=== PATIENT | male | born 1985 | race Caucasian/White ===

== ENCOUNTER → 2017-01-21 | Outpatient (CLI) | payer MEDICAID ==
[2017-01-21 12:08] LABS: CHLORIDE,CL 105 mmol/L (98-110); SODIUM,NA 139 mmol/L (136-146)
--- NOTE | 2017-01-21 15:00 | CT ---
CT of the abdomen and pelvis without contrast. HISTORY: Flank Pain TECHNIQUE: Axial CT images were obtained of the abdomen and pelvis without contrast. Coronal and sag ittal reconstructions obtained. FINDINGS: The lung bases are clear, no pleural effusion. The liver, spleen, adrenal glands, and pancreas appear unremarkable for noncontrast examination. The gallbladder appears normal. There is no bulky retroperitoneal lymphadenopathy. No abdominal ascite s. There is a punctate nonobstructing stone within the upper pole of the left kidney. The large and small bowel are normal in caliber without evidence of obstruction. The appendix appear s normal. There is no bulky pelvic lymphadenopathy. No free fluid. No free air. The urinary bladder appears normal. The visualized osseous structures appear normal. IMPRESSION: 1. No acute findings within the abdomen or pelvis. 2. Punctate nonobstructing left renal stone.
== END ==
LOC: MW.DI 11:05
PROVIDERS: ATTEND Nurse Practitioner Family
DX: R10.9 Unspecified abdominal pain (principal); N20.9 Urinary calculus, unspecified
CPT/HCPCS: 36415; 74176; 74176-26; 80053; 81001; 85025

== ENCOUNTER 2017-08-30 13:15 | Emergency (ER) | payer MEDICAID ==
[2017-08-30 13:25] VITALS: BP 141/87
--- NOTE | 2017-08-30 13:40 | EDM.PDOC ---
ED HPI GENERAL MEDICAL PROBLEM - General Chief Complaint: Bite:Animal, Insect Stated Complaint: DOG BITE Time Seen by Provider: 08/30/17 13:25 Source of Information: Reports: Patient History Limitations: Reports: No Limitations - History of Present Illness INITIAL COMMENTS - FREE TEXT/NARRATIVE: History of present illness: [32-year-old male comes in status post puncture wound to 2 right hand from his appendectomy. Patient had been playing roughly with the dog teasing her and she nipped at him causing a small puncture on the right index finger and the outer media aspect of the palm] Review of systems: As per history of present illness and below otherwise all systems reviewed and negative. Past medical history: As per history of present illness and as reviewed below otherwise noncontributory. Surgical history: As per history of present illness and as reviewed below otherwise noncontributory. Social history: No reported history of drug or alcohol abuse. Family history: As per history of present illness and as reviewed below otherwise noncontributory. Physical exam: HEENT: Atraumatic, normocephalic, pupils reactive, negative for conjunctival pallor or scleral icterus, mucous membranes moist, throat clear, neck supple, nontender, trachea midline. Lungs: Clear to auscultation, breath sounds equal bilaterally, chest nontender. Heart: S1S2, regular, negative for clicks, rubs, or JVD. Abdomen: Soft, nondistended, nontender. Negative for masses or hepatosplenomegaly. Negative for costovertebral tenderness. Pelvis: Stable nontender. Genitourinary: Deferred. Rectal: Deferred. Extremities: Atraumatic, negative for cords or calf pain. Neurovascular unremarkable. Neuro: Awake, alert, oriented. Cranial nerves II through XII unremarkable. Cerebellum unremarkable. Motor and sensory unremarkable throughout. Exam nonfocal. Skin: Mild puncture wound that had already sealed with fibrin clot. Discussed with patient about dogs immunizations he indicated dog was slightly behind and due to age had not had her rabies shot yet. Diagnostics: [] Therapeutics: [] Impression: [Dog bite] Plan: [Augmentin] Definitive disposition and diagnosis as appropriate pending reevaluation and review of above. Right Hand Pain Score (Numeric/FACES): 5 - Related Data Allergies Allergy/AdvReac Type Severity Reaction Status Date / Time Sulfa (Sulfonamide Allergy Rash Verified 08/30/17 13:25 Antibiotics) Home Meds: Home Meds . [No Known Home Meds] 06/05/14 [History] Past Medical History - Past Health History Medical/Surgical History: Denies Medical/Surgical History - Infectious Disease History Infectious Disease History: Reports: Chicken Pox - Past Surgical History HEENT Surgical History: Reports: Tonsillectomy Social & Family History - Family History Family Medical History: Noncontributory - Tobacco Use Smoking Status *Q: Current Every Day Smoker Years of Tobacco use: 10 Packs/Tins Daily: 1 Second Hand Smoke Exposure: No - Caffeine Use Caffeine Use: Reports: Coffee, Energy Drinks - Alcohol Use Days Per Week of Alcohol Use: 1 Number of Drinks Per Day: 3 Total Drinks Per Week: 3 - Recreational Drug Use Recreational Drug Use: No - Living Situation & Occupation Occupation: Employed ED ROS GENERAL - Review of Systems Review Of Systems: See Below (See history of present illness) ED EXAM, ANIMAL BITE - Physical Exam Exam: See Below (See history of present illness) Course - Vital Signs Last Recorded V/S: Last Vital Signs Temp 36.7 C 08/30/17 13:22 Pulse 73 08/30/17 13:22 Resp 18 08/30/17 13:22 BP 141/87 H 08/30/17 13:22 Pulse Ox 99 08/30/17 13:22 Departure - Departure Time of Disposition: 13:39 Disposition: Home, Self-Care 01 Condition: Good Clinical Impression: Dog bite - Discharge Information Instructions: Animal Bite, [id number] Referrals: PCP,None [Primary Care Provider] - Additional Instructions: The following information is given to patients seen in the emergency department who are being discharged to home. This information is to outline your options for follow-up care. We provide all patients seen in our emergency department with a follow-up referral. The need for follow-up, as well as the timing and circumstances, are variable depending upon the specifics of your emergency department visit. If you don't have a primary care physician on staff, we will provide you with a referral. We always advise you to contact your personal physician following an emergency department visit to inform them of the circumstance of the visit and for follow-up with them and/or the need for any referrals to a consulting specialist. The emergency department will also refer you to a specialist when appropriate. This referral assures that you have the opportunity for follow-up care with a specialist. All of these measure are taken in an effort to provide you with optimal care, which includes your follow-up. Under all circumstances we always encourage you to contact your private physician who remains a resource for coordinating your care. When calling for follow-up care, please make the office aware that this follow-up is from your recent emergency room visit. If for any reason you are refused follow-up, please contact the [facility] Emergency Department at and asked to speak to the emergency department charge nurse. Take medication as directed Follow-up with PCP in 3-5 days Return to ED as needed as discussed
== END 2017-08-30 13:50 | disposition home or self-care (01) ==
LOC: MW.ED 13:15
DX: S61.230A Puncture wound without foreign body of right index finger without damage to nail, initial encounter (principal); F17.210 Nicotine dependence, cigarettes, uncomplicated; Z88.2 Allergy status to sulfonamides; W54.0XXA Bitten by dog, initial encounter
CPT/HCPCS: 99282; 99283

== ENCOUNTER 2017-12-13 13:58 | Observation (INO) | payer MEDICAID ==
[2017-12-13] MEDS ORDERED: Sodium Chloride 0.9% 10 ML Syringe FLUSH PRN (14:00)
[2017-12-13] MEDS ORDERED: Sodium Chloride 0.9% 2.5 ML Syringe FLUSH PRN (14:00)
[2017-12-13] MEDS ORDERED: LORazepam 1 MG Tab PO ONE (14:03)
[2017-12-13] MEDS ORDERED: Aspirin 81 MG Tab.Chew PO ONE (14:03)
[2017-12-13] MEDS: Nitroglycerin 0.4 MG Tab.SL SL PRN ×3 (14:11→17:05)
[2017-12-13 14:37] LABS: CHLORIDE,CL 109 mmol/L (98-110); SODIUM,NA 139 mmol/L (136-146)
--- NOTE | 2017-12-13 14:39 | EDM.PDOC ---
ED HPI GENERAL MEDICAL PROBLEM - General Chief Complaint: Chest Pain Stated Complaint: CHEST PAIN Time Seen by Provider: 12/13/17 14:20 Source of Information: Reports: Patient History Limitations: Reports: No Limitations - History of Present Illness INITIAL COMMENTS - FREE TEXT/NARRATIVE: History of present illness: []Patient persisted and when he started having stabbing left-sided chest pain radiating to his left arm. Feels short of breath but denies any dizziness lightheadedness sweating or syncope. Patient does not have heart disease but states his dad of a heart attack in his mid 40s. Review of systems: As per history of present illness and below otherwise all systems reviewed and negative. Past medical history: As per history of present illness and as reviewed below otherwise noncontributory. Surgical history: As per history of present illness and as reviewed below otherwise noncontributory. Social history: No reported history of drug or alcohol abuse. Family history: As per history of present illness and as reviewed below otherwise noncontributory. Physical exam: General: Well developed, well nourished in NAD HEENT: Atraumatic, normocephalic, pupils reactive, negative for conjunctival pallor or scleral icterus, mucous membranes moist, throat clear, neck supple, nontender, trachea midline. Lungs: Clear to auscultation, breath sounds equal bilaterally, chest nontender. Heart: S1S2, regular, negative for clicks, rubs, or JVD. Abdomen: Soft, nondistended, nontender. Negative for masses or hepatosplenomegaly. Negative for costovertebral tenderness. Pelvis: Stable nontender. Genitourinary: Deferred. Rectal: Deferred. Extremities: Atraumatic, negative for cords or calf pain. Neurovascular unremarkable. Neuro: Awake, alert, oriented. Cranial nerves II through XII unremarkable. Cerebellum unremarkable. Motor and sensory unremarkable throughout. Exam nonfocal. Diagnostics: []EKG, labs, x-rays negative Therapeutics: []Aspirin nitroglycerin Ativan given with improvement has pain, Impression: []Chest pain, unable to rule out [place] given onset of pain 20 minutes prior to arrival Plan: []Admit to telemetry obs to rule out [place] Definitive disposition and diagnosis as appropriate pending reevaluation and review of above. chest pain Pain Score (Numeric/FACES): 5 - Related Data Allergies Allergy/AdvReac Type Severity Reaction Status Date / Time Sulfa (Sulfonamide Allergy Rash Verified 12/13/17 13:59 Antibiotics) Home Meds: Home Meds . [No Known Home Meds] 12/13/17 [History] Past Medical History - Past Health History Medical/Surgical History: Denies Medical/Surgical History HEENT History: Reports: None Cardiovascular History: Reports: None Respiratory History: Reports: None Gastrointestinal History: Reports: None Genitourinary History: Reports: None Musculoskeletal History: Reports: None Neurological History: Reports: None Psychiatric History: Reports: None Endocrine/Metabolic History: Reports: None Hematologic History: Reports: None Immunologic History: Reports: None Oncologic (Cancer) History: Reports: None Dermatologic History: Reports: None - Infectious Disease History Infectious Disease History: Reports: Chicken Pox - Past Surgical History Head Surgeries/Procedures: Reports: None HEENT Surgical History: Reports: Tonsillectomy Cardiovascular Surgical History: Reports: None Respiratory Surgical History: Reports: None GI Surgical History: Reports: None Male Surgical History: Reports: None Endocrine Surgical History: Reports: None Neurological Surgical History: Reports: None Musculoskeletal Surgical History: Reports: None Oncologic Surgical History: Reports: None Dermatological Surgical History: Reports: None Social & Family History - Family History Family Medical History: Noncontributory Cardiac: Reports: [place] - Tobacco Use Smoking Status *Q: Never Smoker Years of Tobacco use: 10 Packs/Tins Daily: 1 Second Hand Smoke Exposure: No - Caffeine Use Caffeine Use: Reports: Coffee - Alcohol Use Days Per Week of Alcohol Use: 1 Number of Drinks Per Day: 3 Total Drinks Per Week: 3 - Recreational Drug Use Recreational Drug Use: No - Living Situation & Occupation Occupation: Employed ED ROS GENERAL - Review of Systems Review Of Systems: See Below (See history of present illness) ED EXAM, GENERAL - Physical Exam Exam: See Below (See history of present illness) Course - Vital Signs Last Recorded V/S: Last Vital Signs Temp 98.5 F 12/13/17 14:58 Pulse 96 12/13/17 13:59 Resp 20 12/13/17 14:58 BP 105/70 12/13/17 14:58 Pulse Ox 99 12/13/17 14:58 - Orders/Labs/Meds Orders: Active Orders 24 hr Category Date Time Status EKG Documentation Completion [RC] STAT Care 12/13/17 14:00 Active Chest 1V Frontal [CR] Stat Exams 12/13/17 14:01 Taken Nitroglycerin [Nitrostat] Med 12/13/17 14:03 Active 0.4 mg SL Q5M PRN Sodium Chloride 0.9% [Saline Flush] Med 12/13/17 14:00 Active 10 ml FLUSH ASDIRECTED PRN Sodium Chloride 0.9% [Saline Flush] Med 12/13/17 14:00 Active 2.5 ml FLUSH ASDIRECTED PRN Saline Lock Insert [OM.PC] Stat Oth 12/13/17 14:00 Ordered Medication Orders Nitroglycerin (Nitrostat) 0.4 mg SL Q5M PRN PRN Reason: Chest Pain Last Admin: 12/13/17 14:11 Dose: 0.4 mg Sodium Chloride (Saline Flush) 10 ml FLUSH ASDIRECTED PRN PRN Reason: Keep Vein Open Last Admin: 12/13/17 14:13 Dose: 10 ml Sodium Chloride (Saline Flush) 2.5 ml FLUSH ASDIRECTED PRN PRN Reason: Keep Vein Open Last Admin: 12/13/17 14:14 Dose: 2.5 ml Labs: Laboratory Tests 12/13/17 12/13/17 Range/Units 14:07 14:07 WBC 6.39 (4.0-11.0) K/uL RBC 4.91 (4.50-5.90) M/uL Hgb 15.0 (13.0-17.0) g/dL Hct 43.1 (38.0-50.0) % MCV 87.8 (80.0-98.0) fL MCH 30.5 (27.0-32.0) pg MCHC 34.8 (31.0-37.0) g/dL RDW Std Deviation 40.1 (28.0-62.0) fl RDW Coeff of Angela 12 (11.0-15.0) % Plt Count 284 (150-400) K/uL MPV 10.20 (7.40-12.00) fL Neut % (Auto) 69.9 (48.0-80.0) % Lymph % (Auto) 17.7 (16.0-40.0) % [place] % (Auto) 11.0 (0.0-15.0) % Eos % (Auto) 0.9 (0.0-7.0) % Baso % (Auto) 0.5 (0.0-1.5) % Neut # (Auto) 4.5 (1.4-5.7) K/uL Lymph # (Auto) 1.1 (0.6-2.4) K/uL [place] # (Auto) 0.7 (0.0-0.8) K/uL Eos # (Auto) 0.1 (0.0-0.7) K/uL Baso # (Auto) 0.0 (0.0-0.1) K/uL Nucleated RBC % 0.0 /100WBC Nucleated RBCs # 0 K/uL Sodium 139 (136-146) mmol/L Potassium 4.1 (3.5-5.1) mmol/L Chloride 109 (98-110) mmol/L Carbon Dioxide 21 (21-31) mmol/L BUN 14 (6.0-23.0) mg/dL Creatinine 1.1 (0.6-1.5) mg/dL Est Cr Clr Drug Dosing 101.73 mL/min Estimated GFR (MDRD) > 60.0 ml/min Glucose 103 (60-110) mg/dL Calcium 9.3 (8.8-10.8) mg/dL Total Bilirubin 0.9 (0.1-1.5) mg/dL AST 17 (5-40) IU/L ALT 14 (8-54) IU/L Alkaline Phosphatase 61 (40-150) Troponin I < 0.10 (0.0-0.29) NG/ML Total Protein 7.3 (6.0-8.0) g/dL Albumin 4.6 (3.5-5.0) g/dL Globulin 2.7 (2.0-3.5) g/dL Albumin/Globulin Ratio 1.7 (1.3-2.8) Meds: Medications Generic Name Dose Route Start Last Admin Trade Name Freq PRN Reason Stop Dose Admin Nitroglycerin 0.4 mg 12/13/17 14:03 12/13/17 14:11 Nitrostat SL 0.4 mg Q5M PRN Administration Chest Pain Sodium Chloride 10 ml 12/13/17 14:00 12/13/17 14:13 Saline Flush FLUSH 10 ml ASDIRECTED PRN Administration Keep Vein Open Sodium Chloride 2.5 ml 12/13/17 14:00 12/13/17 14:14 Saline Flush FLUSH 2.5 ml ASDIRECTED PRN Administration Keep Vein Open Discontinued Medications Generic Name Dose Route Start Last Admin Trade Name Nateq PRN Reason Stop Dose Admin Aspirin 324 mg 12/13/17 14:03 12/13/17 14:08 Aspirin PO 12/13/17 14:04 324 mg ONETIME ONE Administration Lorazepam 1 mg 12/13/17 14:03 12/13/17 14:09 Ativan PO 12/13/17 14:04 1 mg ONETIME ONE Administration Departure - Departure Time of Disposition: 15:04 Disposition: Admitted As Inpatient 65 Condition: Good Clinical Impression: Chest pain Qualifiers: Chest pain type: unspecified Qualified Code(s): R07.9 - Chest pain, unspecified - My Orders Last 24 Hours: My Active Orders 12/13/17 14:00 EKG Documentation Completion [RC] STAT Sodium Chloride 0.9% [Saline Flush] 10 ml FLUSH ASDIRECTED PRN Sodium Chloride 0.9% [Saline Flush] 2.5 ml FLUSH ASDIRECTED PRN Saline Lock Insert [OM.PC] Stat 12/13/17 14:01 Chest 1V Frontal [CR] Stat 12/13/17 14:03 Nitroglycerin [Nitrostat] 0.4 mg SL Q5M PRN - Assessment/Plan Last 24 Hours: My Active Orders 12/13/17 14:00 EKG Documentation Completion [RC] STAT Sodium Chloride 0.9% [Saline Flush] 10 ml FLUSH ASDIRECTED PRN Sodium Chloride 0.9% [Saline Flush] 2.5 ml FLUSH ASDIRECTED PRN Saline Lock Insert [OM.PC] Stat 12/13/17 14:01 Chest 1V Frontal [CR] Stat 12/13/17 14:03 Nitroglycerin [Nitrostat] 0.4 mg SL Q5M PRN
--- NOTE | 2017-12-13 15:10 | PCM.HP ---
H&P History of Present Illness - General Date of Service: 12/13/17 Admit Problem/Dx: Admission Diagnosis/Problem Admission Diagnosis/Problem Chest pain Source of Information: Patient History Limitations: Reports: No Limitations - History of Present Illness Initial Comments - Free Text/Narative: 32-year-old male presenting to the emergency department with chief complaint of stabbing left-sided chest pain with radiation into the left arm 30 minutes with no significant past medical history. Patient states that today while he was sitting still he began to have left- sided chest pain with some left sided numbness. States that the pain lasted for 30 minutes approximately and was sharp. He did feel somewhat clammy and dizzy but denies any syncope. He also denies any associated shortness of breath, palpitations, or nausea. He takes no medications and has never had similar episodes before. He does get heartburn occasionally but this pain was significantly different. He does have a family history of [place] with his dad passing away at 48 from a heart attack. States that the pain did go away in the emergency department when they give him sublingual nitroglycerin. Patient does admit to having some significant stress at his work and family. 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 In the emergency department CBC, CMP, chest x-ray were unremarkable. Initial troponin was negative at 1407. EKG showed no acute ischemic changes. Patient admitted for observation for atypical chest pain. chest pain Pain Score (Numeric/FACES): 5 - Related Data Allergies/Adverse Reactions: Allergies Allergy/AdvReac Type Severity Reaction Status Date / Time Sulfa (Sulfonamide Allergy Rash Verified 12/13/17 13:59 Antibiotics) Home Medications: Home Meds . [No Known Home Meds] 12/13/17 [History] Past Medical History - Past Health History Medical/Surgical History: Denies Medical/Surgical History HEENT History: Reports: None Cardiovascular History: Reports: None Respiratory History: Reports: None Gastrointestinal History: Reports: None Genitourinary History: Reports: None Musculoskeletal History: Reports: None Neurological History: Reports: None Psychiatric History: Reports: None Endocrine/Metabolic History: Reports: None Hematologic History: Reports: None Immunologic History: Reports: None Oncologic (Cancer) History: Reports: None Dermatologic History: Reports: None - Infectious Disease History Infectious Disease History: Reports: Chicken Pox - Past Surgical History Head Surgeries/Procedures: Reports: None HEENT Surgical History: Reports: Tonsillectomy Cardiovascular Surgical History: Reports: None Respiratory Surgical History: Reports: None GI Surgical History: Reports: None Male Surgical History: Reports: None Endocrine Surgical History: Reports: None Neurological Surgical History: Reports: None Musculoskeletal Surgical History: Reports: None Oncologic Surgical History: Reports: None Dermatological Surgical History: Reports: None Social & Family History - Family History Family Medical History: Noncontributory Cardiac: Reports: [place] - Tobacco Use Smoking Status *Q: Never Smoker Years of Tobacco use: 10 Packs/Tins Daily: 1 Second Hand Smoke Exposure: No - Caffeine Use Caffeine Use: Reports: Coffee - Alcohol Use Days Per Week of Alcohol Use: 1 Number of Drinks Per Day: 3 Total Drinks Per Week: 3 - Recreational Drug Use Recreational Drug Use: No - Living Situation & Occupation Occupation: Employed H&P Review of Systems - Review of Systems: Review Of Systems: See Below General: Denies: Fever, Chills, Malaise, Weakness HEENT: Denies: Headaches Pulmonary: Denies: Shortness of Breath, Wheezing, Cough, Sputum Cardiovascular: Denies: Chest Pain, Palpitations Gastrointestinal: Denies: Abdominal Pain, Diarrhea, Nausea, Vomiting Genitourinary: Denies: Dysuria, Hematuria Musculoskeletal: Denies: Neck Pain, Leg Pain Skin: Denies: Cyanosis Psychiatric: Denies: Confusion, Depression Neurological: Denies: Confusion, Dizziness, Headache Hematologic/Lymphatic: Denies: Anemia Immunologic: Denies: Anaphylaxis Exam - Exam Exam: See Below - Vital Signs Vital Signs: Last Vital Signs Temp 98.5 F 12/13/17 14:58 Pulse 96 12/13/17 13:59 Resp 20 12/13/17 14:58 BP 105/70 12/13/17 14:58 Pulse Ox 99 12/13/17 14:58 Weight: 90.718 kg - Exam Quality Assessment: DVT Prophylaxis General: Alert, Oriented, Cooperative HEENT: Conjunctiva Clear, EACs Clear, EOMI, Hearing Intact, Mucosa Moist & [place] , Posterior Pharynx Clear, PERRLA Neck: Supple, Trachea Midline, 2 Lungs: Clear to Auscultation, Normal Respiratory Effort Cardiovascular: Regular Rate, Regular Rhythm, Normal S1, Normal S2 GI/Abdominal Exam: Normal Bowel Sounds, Soft, Non-Tender, No Organomegaly, No Distention Back Exam: Normal Inspection, Full Range of Motion, NT Extremities: Normal Inspection, Non-Tender, No Pedal Edema, Normal Capillary Refill Peripheral Pulses: 2+: Radial (L), Radial (R), Posterior Tibial (L), Posterior Tibial (R), Dorsalis Pedis (L), Dorsalis Pedis (R) Skin: Warm, Dry, Intact Neurological: Cranial Nerves Intact, Reflexes Equal Bilateral Neuro Extensive - Mental Status: Alert, Oriented x3, Normal Mood/Affect, Normal Cognition Neuro Extensive - Motor, Sensory, Reflexes: CN II-XII Intact, Normal Gait, Normal Reflexes Psychiatric: Alert, Normal Affect, Normal Mood - Patient Data Lab Results Last 24 hrs: Laboratory Results - last 24 hr 12/13/17 12/13/17 Range/Units 14:07 14:07 WBC 6.39 (4.0-11.0) K/uL RBC 4.91 (4.50-5.90) M/uL Hgb 15.0 (13.0-17.0) g/dL Hct 43.1 (38.0-50.0) % MCV 87.8 (80.0-98.0) fL MCH 30.5 (27.0-32.0) pg MCHC 34.8 (31.0-37.0) g/dL RDW Std Deviation 40.1 (28.0-62.0) fl RDW Coeff of Angela 12 (11.0-15.0) % Plt Count 284 (150-400) K/uL MPV 10.20 (7.40-12.00) fL Neut % (Auto) 69.9 (48.0-80.0) % Lymph % (Auto) 17.7 (16.0-40.0) % [place] % (Auto) 11.0 (0.0-15.0) % Eos % (Auto) 0.9 (0.0-7.0) % Baso % (Auto) 0.5 (0.0-1.5) % Neut # (Auto) 4.5 (1.4-5.7) K/uL Lymph # (Auto) 1.1 (0.6-2.4) K/uL [place] # (Auto) 0.7 (0.0-0.8) K/uL Eos # (Auto) 0.1 (0.0-0.7) K/uL Baso # (Auto) 0.0 (0.0-0.1) K/uL Nucleated RBC % 0.0 /100WBC Nucleated RBCs # 0 K/uL Sodium 139 (136-146) mmol/L Potassium 4.1 (3.5-5.1) mmol/L Chloride 109 (98-110) mmol/L Carbon Dioxide 21 (21-31) mmol/L BUN 14 (6.0-23.0) mg/dL Creatinine 1.1 (0.6-1.5) mg/dL Est Cr Clr Drug Dosing 101.73 mL/min Estimated GFR (MDRD) > 60.0 ml/min Glucose 103 (60-110) mg/dL Calcium 9.3 (8.8-10.8) mg/dL Total Bilirubin 0.9 (0.1-1.5) mg/dL AST 17 (5-40) IU/L ALT 14 (8-54) IU/L Alkaline Phosphatase 61 (40-150) Troponin I < 0.10 (0.0-0.29) NG/ML Total Protein 7.3 (6.0-8.0) g/dL Albumin 4.6 (3.5-5.0) g/dL Globulin 2.7 (2.0-3.5) g/dL Albumin/Globulin Ratio 1.7 (1.3-2.8) Result Diagrams: 12/13/17 14:07 12/13/17 14:07 *Q Meaningful Use (ADM) - VTE *Q VTE Criteria *Q: - Stroke *Q Stroke Criteria *Q: - AMI *Q AMI Criteria *Q: - Problem List (1) Atypical chest pain SNOMED Code(s): 142809036 ICD Code: R07.89 - OTHER CHEST PAIN Status: Acute Priority: High Current Visit: Yes Problem List Initiated/Reviewed/Updated: Yes Orders Last 24hrs: Active Orders 24 hr Category Date Time Status Patient Status [ADT] Stat ADT 12/13/17 15:08 Active EKG Documentation Completion [RC] STAT Care 12/13/17 14:00 Active Chest 1V Frontal [CR] Stat Exams 12/13/17 14:01 Taken Nitroglycerin [Nitrostat] Med 12/13/17 14:03 Active 0.4 mg SL Q5M PRN Sodium Chloride 0.9% [Saline Flush] Med 12/13/17 14:00 Active 10 ml FLUSH ASDIRECTED PRN Sodium Chloride 0.9% [Saline Flush] Med 12/13/17 14:00 Active 2.5 ml FLUSH ASDIRECTED PRN Saline Lock Insert [OM.PC] Stat Oth 12/13/17 14:00 Ordered Medication Orders Nitroglycerin (Nitrostat) 0.4 mg SL Q5M PRN PRN Reason: Chest Pain Last Admin: 12/13/17 14:11 Dose: 0.4 mg Sodium Chloride (Saline Flush) 10 ml FLUSH ASDIRECTED PRN PRN Reason: Keep Vein Open Last Admin: 12/13/17 14:13 Dose: 10 ml Sodium Chloride (Saline Flush) 2.5 ml FLUSH ASDIRECTED PRN PRN Reason: Keep Vein Open Last Admin: 12/13/17 14:14 Dose: 2.5 ml Assessment/Plan Comment:: 32-year-old male admitted 12/13/17 for atypical chest pain with no significant past medical history. Atypical chest pain: We'll trend troponins, place on telemetry, and get a lipid panel for tomorrow morning. This is most likely anxiety related but he does have a family history of a father dying from a [place] at age 48. VTE: SCD, Lovenox Dispo: 1-2 days pending.
[2017-12-13] MEDS ORDERED: Acetaminophen 325 MG Tab PO PRN (15:57)
[2017-12-13] MEDS ORDERED: Ondansetron 4 MG Tab.DIS PO PRN (15:57)
[2017-12-13] MEDS ORDERED: Temazepam 15 MG Cap PO PRN (15:57)
[2017-12-13] MEDS ORDERED: Enoxaparin 40 MG/0.4 ML Syringe SUBCUT SCH (16:00)
[2017-12-13] MEDS ORDERED: LORazepam 2 MG/ML SDV IVPUSH ONE (17:28)
--- NOTE | 2017-12-13 17:35 | PCM.SN ---
- Free Text/Narrative Note: Informed that patient having now right upper chest pain. Nitro given with no resolution. Will give ativan 1 mg. EKG ordered.
[2017-12-13] MEDS: Morphine 2 MG/ML Syringe IVPUSH PRN ×2 (19:16→21:29)
[2017-12-13] MEDS ORDERED: LORazepam 2 MG/ML SDV IVPUSH PRN (20:07)
[2017-12-14 06:04] LABS: CHLORIDE,CL 110 mmol/L (98-110); SODIUM,NA 140 mmol/L (136-146)
--- NOTE | 2017-12-14 08:14 | PCM.PN ---
- General Info Date of Service: 12/14/17 - Patient Data Vitals - Most Recent: Last Vital Signs Temp 98.8 F 12/14/17 04:01 Pulse 76 12/14/17 04:01 Resp 16 12/14/17 04:01 BP 110/51 L 12/14/17 04:01 Pulse Ox 98 12/14/17 04:01 Weight - Most Recent: 90.718 kg I&O - Last 24 Hours: Intake & Output 12/13/17 12/14/17 12/14/17 22:59 06:59 14:59 Intake Total 1750 Output Total 1450 Balance 300 Lab Results Last 24 Hours: Laboratory Results - last 24 hr 12/13/17 12/14/17 12/14/17 Range/Units 19:53 01:55 05:10 WBC 4.97 (4.0-11.0) K/uL RBC 4.72 (4.50-5.90) M/uL Hgb 14.3 (13.0-17.0) g/dL Hct 41.3 (38.0-50.0) % MCV 87.5 (80.0-98.0) fL MCH 30.3 (27.0-32.0) pg MCHC 34.6 (31.0-37.0) g/dL RDW Std Deviation 39.9 (28.0-62.0) fl RDW Coeff of Angela 12 (11.0-15.0) % Plt Count 249 (150-400) K/uL MPV 10.10 (7.40-12.00) fL Neut % (Auto) 54.5 (48.0-80.0) % Lymph % (Auto) 28.2 (16.0-40.0) % [place] % (Auto) 14.7 (0.0-15.0) % Eos % (Auto) 2.0 (0.0-7.0) % Baso % (Auto) 0.6 (0.0-1.5) % Neut # (Auto) 2.7 (1.4-5.7) K/uL Lymph # (Auto) 1.4 (0.6-2.4) K/uL [place] # (Auto) 0.7 (0.0-0.8) K/uL Eos # (Auto) 0.1 (0.0-0.7) K/uL Baso # (Auto) 0.0 (0.0-0.1) K/uL Nucleated RBC % 0.0 /100WBC Nucleated RBCs # 0 K/uL Sodium (136-146) mmol/L Potassium (3.5-5.1) mmol/L Chloride (98-110) mmol/L Carbon Dioxide (21-31) mmol/L BUN (6.0-23.0) mg/dL Creatinine (0.6-1.5) mg/dL Est Cr Clr Drug Dosing mL/min Estimated GFR (MDRD) ml/min Glucose (60-110) mg/dL Calcium (8.8-10.8) mg/dL Troponin I < 0.10 < 0.10 (0.0-0.29) NG/ML Triglycerides (10-190) mg/dL Cholesterol (131-240) mg/dL LDL Cholesterol, Calc (60-180) mg/dL VLDL Cholesterol (5-55) mg/dL HDL Cholesterol (40-80) mg/dL Cholesterol/HDL Ratio (3.3-6.0) 12/14/17 Range/Units 05:10 WBC (4.0-11.0) K/uL RBC (4.50-5.90) M/uL Hgb (13.0-17.0) g/dL Hct (38.0-50.0) % MCV (80.0-98.0) fL MCH (27.0-32.0) pg MCHC (31.0-37.0) g/dL RDW Std Deviation (28.0-62.0) fl RDW Coeff of Angela (11.0-15.0) % Plt Count (150-400) K/uL MPV (7.40-12.00) fL Neut % (Auto) (48.0-80.0) % Lymph % (Auto) (16.0-40.0) % [place] % (Auto) (0.0-15.0) % Eos % (Auto) (0.0-7.0) % Baso % (Auto) (0.0-1.5) % Neut # (Auto) (1.4-5.7) K/uL Lymph # (Auto) (0.6-2.4) K/uL [place] # (Auto) (0.0-0.8) K/uL Eos # (Auto) (0.0-0.7) K/uL Baso # (Auto) (0.0-0.1) K/uL Nucleated RBC % /100WBC Nucleated RBCs # K/uL Sodium 140 (136-146) mmol/L Potassium 3.8 (3.5-5.1) mmol/L Chloride 110 (98-110) mmol/L Carbon Dioxide 23 (21-31) mmol/L BUN 13 (6.0-23.0) mg/dL Creatinine 0.9 (0.6-1.5) mg/dL Est Cr Clr Drug Dosing 120.54 mL/min Estimated GFR (MDRD) > 60.0 ml/min Glucose 98 (60-110) mg/dL Calcium 9.3 (8.8-10.8) mg/dL Troponin I (0.0-0.29) NG/ML Triglycerides 78 (10-190) mg/dL Cholesterol 124 L (131-240) mg/dL LDL Cholesterol, Calc 67 (60-180) mg/dL VLDL Cholesterol 16 (5-55) mg/dL HDL Cholesterol 41 (40-80) mg/dL Cholesterol/HDL Ratio 3.0 L (3.3-6.0) Med Orders - Current: Current Medications Acetaminophen (Tylenol) 650 mg PO Q4H PRN PRN Reason: Pain (Mild 1-3)/fever Enoxaparin Sodium (Lovenox) 40 mg SUBCUT Q24H JILL Last Admin: 12/13/17 16:24 Dose: 40 mg Lorazepam (Ativan) 1 mg IVPUSH Q4H PRN PRN Reason: Anxiety Last Admin: 12/13/17 21:28 Dose: 1 mg Morphine Sulfate (Morphine) 2 mg IVPUSH Q2H PRN PRN Reason: Pain (severe 7-10) Stop: 12/14/17 15:59 Last Admin: 12/13/17 21:29 Dose: 2 mg Ondansetron HCl (Zofran Odt) 4 mg PO Q4H PRN PRN Reason: nausea, able to take PO Last Admin: 12/13/17 21:28 Dose: 4 mg Sodium Chloride (Saline Flush) 10 ml FLUSH ASDIRECTED PRN PRN Reason: Keep Vein Open Last Admin: 12/13/17 14:13 Dose: 10 ml Sodium Chloride (Saline Flush) 2.5 ml FLUSH ASDIRECTED PRN PRN Reason: Keep Vein Open Last Admin: 12/13/17 14:14 Dose: 2.5 ml Temazepam (Restoril) 15 mg PO BEDTIME PRN PRN Reason: Sleep Discontinued Medications Aspirin (Aspirin) 324 mg PO ONETIME ONE Stop: 12/13/17 14:04 Last Admin: 12/13/17 14:08 Dose: 324 mg Lorazepam (Ativan) 1 mg PO ONETIME ONE Stop: 12/13/17 14:04 Last Admin: 12/13/17 14:09 Dose: 1 mg Lorazepam (Ativan) 1 mg IVPUSH ONETIME ONE Stop: 12/13/17 17:29 Last Admin: 12/13/17 17:34 Dose: 1 mg Nitroglycerin (Nitrostat) 0.4 mg SL Q5M PRN PRN Reason: Chest Pain Last Admin: 12/13/17 17:05 Dose: 0.4 mg - Problem List & Annotations (1) Atypical chest pain SNOMED Code(s): 906448616 Code(s): R07.89 - OTHER CHEST PAIN Status: Acute Priority: High Current Visit: Yes - My Orders Last 24 Hours: My Active Orders 12/13/17 15:57 Patient Status [ADT] Routine Oxygen Therapy [RC] PRN Up With Assistance [RC] ASDIRECTED Vital Signs [RC] Q4H Acetaminophen [Tylenol] 650 mg PO Q4H PRN Morphine 2 mg IVPUSH Q2H PRN Ondansetron [Zofran ODT] 4 mg PO Q4H PRN Temazepam [Restoril] 15 mg PO BEDTIME PRN Resuscitation Status Routine 12/13/17 15:58 Sequential Compression Device [OM.PC] Per Unit Routine 12/13/17 15:59 Antiembolic Devices [RC] PER UNIT ROUTINE 12/13/17 16:00 Enoxaparin [Lovenox] 40 mg SUBCUT Q24H 12/13/17 16:02 Telemetry Monitoring [Cardiac Monitoring] [RC] Q8H 12/13/17 20:07 LORazepam [Ativan] 1 mg IVPUSH Q4H PRN 12/13/17 Dinner Heart Healthy Diet [DIET] 12/15/17 05:11 BASIC METABOLIC PANEL,BMP [CHEM] AM CBC WITH AUTO DIFF [HEME] AM 12/16/17 05:11 BASIC METABOLIC PANEL,BMP [CHEM] AM CBC WITH AUTO DIFF [HEME] AM - Plan Plan:: 32-year-old male admitted 12/13/17 for atypical chest pain with no significant past medical history. Atypical chest pain: We'll trend troponins, place on telemetry, and get a lipid panel for tomorrow morning. This is most likely anxiety related but he does have a family history of a father dying from a CT at age 48. VTE: SCD, Lovenox Dispo: 1-2 days pending.
--- NOTE | 2017-12-14 08:21 | PCM.DCSUM1 ---
Discharge Summary - Hospital Course HPI Initial Comments: 32-year-old male admitted 12/13/17 for atypical chest pain with no significant past medical history. Brief History: Patient stated that on day of admission while he was sitting still he began to have left-sided chest pain with some left sided numbness/ tingling. States that the pain lasted for 30 minutes approximately and was sharp. He did feel somewhat clammy and dizzy but denies any syncope. He also denies any associated shortness of breath, palpitations, or nausea. He takes no medications and has never had similar episodes before. He does get heartburn occasionally but this pain was significantly different. He does have a family history of [place] with his dad passing away at 48 from a heart attack. Stated that the pain did go away in the emergency department when they gave him sublingual nitroglycerin. Patient does admit to having some significant stress at his work and family. 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 - Discharge Data Discharge Date: 12/14/17 Discharge Disposition: Home, Self-Care 01 Condition: Good - Discharge Diagnosis/Problem(s) (1) Atypical chest pain SNOMED Code(s): 570235390 ICD Code: R07.89 - OTHER CHEST PAIN Status: Acute Priority: High Current Visit: Yes - Patient Instructions Diet: Heart Healthy Diet Activity: Rest and Relax Today Driving: Do Not Drive Showering/Bathing: May Shower Notify Provider of: Fever, Increased Pain, Nausea and/or Vomiting - Discharge Plan Prescriptions/Med Rec: LORazepam [Ativan] 1 mg PO Q6H PRN #4 tablet PRN Reason: panic attack Home Medications: Home Meds LORazepam [Ativan] 1 mg PO Q6H PRN #4 tablet 12/14/17 [Rx] Patient Handouts: Nonspecific Chest Pain, [id number], Lorazepam tablets Referrals: [facility] [Outside] Rigo Morgan [Resident] - 12/21/17 9:30 am - Discharge Summary/Plan Comment DC Time >30 min.: Yes Discharge Summary/Plan Comment: 32-year-old male admitted 12/13/17 for atypical chest pain with no significant past medical history. Patient stated that on day of admission while he was sitting still he began to have left-sided chest pain with some left sided numbness/tingling. States that the pain lasted for 30 minutes approximately and was sharp. He did feel somewhat clammy and dizzy but denies any syncope. He also denies any associated shortness of breath, palpitations, or nausea. He takes no medications and has never had similar episodes before. He does get heartburn occasionally but this pain was significantly different. He does have a family history of [place] with his dad passing away at 48 from a heart attack. Stated that the pain did go away in the emergency department when they gave him sublingual nitroglycerin. Patient does admit to having some significant stress at his work and family. 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 In the emergency department CBC, CMP, chest x-ray were unremarkable. Initial troponin was negative at 1407. EKG showed no acute ischemic changes. Patient admitted for observation for atypical chest pain. Patient did have return of his chest pain but was on the right side versus left on day of admission. He was given again a dose of nitroglycerin with no relief of symptoms. EKG and telemetry showed no acute signs of ischemia. He was then given Ativan 1 mg with relief of his pain completely. Patient did admit that he had a history of anxiety when he was younger and has been overly stressed secondary to his work and home life. Patient's troponins were negative and he otherwise did well throughout his stay. His lipid panel revealed a total cholesterol of 124, HDL 41, LDL 67. I do feel that this atypical chest pain was related to anxiety but secondary to his family history of having a dad pass away in his late 40s he should follow-up closely with PCP. I did give him a prescription for Ativan 1 mg #4 and advised him that it can cause respiratory depression and sleepiness. I also stated that I would prefer he not be on this medication on a long-term basis and only take it when he is having an anxiety attack. He is in understanding but did not want to start an SSRI while in the hospital as he's had them before and did not think they work. He is amiable to possibly starting them when he sees a PCP on follow-up. Patient was discharged in good condition on secondary admission with a follow- up with Dr. Morgan and instructed to return to the emergency department if he had any new or worsening symptoms. - General Info Admission Dx/Problem (Free Text: Admission Diagnosis/Problem Admission Diagnosis/Problem Chest pain Subjective Update: Doing well this morning did have occasion chest pain overnight that was relieved with Ativan not nitro. Otherwise doing well and ready to go home. Functional Status: Reports: Pain Controlled, Tolerating Diet - Review of Systems General: Denies: Fever, Weakness, Fatigue HEENT: Denies: Headaches, Visual Changes Pulmonary: Denies: Shortness of Breath, Pleuritic Chest Pain, Wheezing Cardiovascular: Reports: Chest Pain. Denies: Palpitations, Edema Gastrointestinal: Denies: Abdominal Pain, Constipation Genitourinary: Denies: Dysuria, Hematuria Musculoskeletal: Denies: Neck Pain, Leg Pain Skin: Denies: Cyanosis Neurological: Denies: Confusion, Dizziness, Headache Psychiatric: Denies: Confusion - Patient Data Vitals - Most Recent: Last Vital Signs Temp 98.8 F 12/14/17 04:01 Pulse 76 12/14/17 04:01 Resp 16 12/14/17 04:01 BP 110/51 L 12/14/17 04:01 Pulse Ox 98 12/14/17 04:01 Weight - Most Recent: 90.718 kg I&O - Last 24 hours: Intake & Output 12/13/17 12/14/17 12/14/17 22:59 06:59 14:59 Intake Total 1750 Output Total 1450 Balance 300 Lab Results - Last 24 hrs: Laboratory Results - last 24 hr 12/13/17 12/14/17 12/14/17 Range/Units 19:53 01:55 05:10 WBC 4.97 (4.0-11.0) K/uL RBC 4.72 (4.50-5.90) M/uL Hgb 14.3 (13.0-17.0) g/dL Hct 41.3 (38.0-50.0) % MCV 87.5 (80.0-98.0) fL MCH 30.3 (27.0-32.0) pg MCHC 34.6 (31.0-37.0) g/dL RDW Std Deviation 39.9 (28.0-62.0) fl RDW Coeff of Angela 12 (11.0-15.0) % Plt Count 249 (150-400) K/uL MPV 10.10 (7.40-12.00) fL Neut % (Auto) 54.5 (48.0-80.0) % Lymph % (Auto) 28.2 (16.0-40.0) % [place] % (Auto) 14.7 (0.0-15.0) % Eos % (Auto) 2.0 (0.0-7.0) % Baso % (Auto) 0.6 (0.0-1.5) % Neut # (Auto) 2.7 (1.4-5.7) K/uL Lymph # (Auto) 1.4 (0.6-2.4) K/uL [place] # (Auto) 0.7 (0.0-0.8) K/uL Eos # (Auto) 0.1 (0.0-0.7) K/uL Baso # (Auto) 0.0 (0.0-0.1) K/uL Nucleated RBC % 0.0 /100WBC Nucleated RBCs # 0 K/uL Sodium (136-146) mmol/L Potassium (3.5-5.1) mmol/L Chloride (98-110) mmol/L Carbon Dioxide (21-31) mmol/L BUN (6.0-23.0) mg/dL Creatinine (0.6-1.5) mg/dL Est Cr Clr Drug Dosing mL/min Estimated GFR (MDRD) ml/min Glucose (60-110) mg/dL Calcium (8.8-10.8) mg/dL Troponin I < 0.10 < 0.10 (0.0-0.29) NG/ML Triglycerides (10-190) mg/dL Cholesterol (131-240) mg/dL LDL Cholesterol, Calc (60-180) mg/dL VLDL Cholesterol (5-55) mg/dL HDL Cholesterol (40-80) mg/dL Cholesterol/HDL Ratio (3.3-6.0) 12/14/17 Range/Units 05:10 WBC (4.0-11.0) K/uL RBC (4.50-5.90) M/uL Hgb (13.0-17.0) g/dL Hct (38.0-50.0) % MCV (80.0-98.0) fL MCH (27.0-32.0) pg MCHC (31.0-37.0) g/dL RDW Std Deviation (28.0-62.0) fl RDW Coeff of Angela (11.0-15.0) % Plt Count (150-400) K/uL MPV (7.40-12.00) fL Neut % (Auto) (48.0-80.0) % Lymph % (Auto) (16.0-40.0) % [place] % (Auto) (0.0-15.0) % Eos % (Auto) (0.0-7.0) % Baso % (Auto) (0.0-1.5) % Neut # (Auto) (1.4-5.7) K/uL Lymph # (Auto) (0.6-2.4) K/uL [place] # (Auto) (0.0-0.8) K/uL Eos # (Auto) (0.0-0.7) K/uL Baso # (Auto) (0.0-0.1) K/uL Nucleated RBC % /100WBC Nucleated RBCs # K/uL Sodium 140 (136-146) mmol/L Potassium 3.8 (3.5-5.1) mmol/L Chloride 110 (98-110) mmol/L Carbon Dioxide 23 (21-31) mmol/L BUN 13 (6.0-23.0) mg/dL Creatinine 0.9 (0.6-1.5) mg/dL Est Cr Clr Drug Dosing 120.54 mL/min Estimated GFR (MDRD) > 60.0 ml/min Glucose 98 (60-110) mg/dL Calcium 9.3 (8.8-10.8) mg/dL Troponin I (0.0-0.29) NG/ML Triglycerides 78 (10-190) mg/dL Cholesterol 124 L (131-240) mg/dL LDL Cholesterol, Calc 67 (60-180) mg/dL VLDL Cholesterol 16 (5-55) mg/dL HDL Cholesterol 41 (40-80) mg/dL Cholesterol/HDL Ratio 3.0 L (3.3-6.0) Med Orders - Current: Current Medications Acetaminophen (Tylenol) 650 mg PO Q4H PRN PRN Reason: Pain (Mild 1-3)/fever Enoxaparin Sodium (Lovenox) 40 mg SUBCUT Q24H JILL Last Admin: 12/13/17 16:24 Dose: 40 mg Lorazepam (Ativan) 1 mg IVPUSH Q4H PRN PRN Reason: Anxiety Last Admin: 12/13/17 21:28 Dose: 1 mg Morphine Sulfate (Morphine) 2 mg IVPUSH Q2H PRN PRN Reason: Pain (severe 7-10) Stop: 12/14/17 15:59 Last Admin: 12/13/17 21:29 Dose: 2 mg Ondansetron HCl (Zofran Odt) 4 mg PO Q4H PRN PRN Reason: nausea, able to take PO Last Admin: 12/13/17 21:28 Dose: 4 mg Sodium Chloride (Saline Flush) 10 ml FLUSH ASDIRECTED PRN PRN Reason: Keep Vein Open Last Admin: 12/13/17 14:13 Dose: 10 ml Sodium Chloride (Saline Flush) 2.5 ml FLUSH ASDIRECTED PRN PRN Reason: Keep Vein Open Last Admin: 12/13/17 14:14 Dose: 2.5 ml Temazepam (Restoril) 15 mg PO BEDTIME PRN PRN Reason: Sleep Discontinued Medications Aspirin (Aspirin) 324 mg PO ONETIME ONE Stop: 12/13/17 14:04 Last Admin: 12/13/17 14:08 Dose: 324 mg Lorazepam (Ativan) 1 mg PO ONETIME ONE Stop: 12/13/17 14:04 Last Admin: 12/13/17 14:09 Dose: 1 mg Lorazepam (Ativan) 1 mg IVPUSH ONETIME ONE Stop: 12/13/17 17:29 Last Admin: 12/13/17 17:34 Dose: 1 mg Nitroglycerin (Nitrostat) 0.4 mg SL Q5M PRN PRN Reason: Chest Pain Last Admin: 12/13/17 17:05 Dose: 0.4 mg - Exam Quality Assessment: Reports: DVT Prophylaxis General: Reports: Alert, Oriented, Cooperative, No Acute Distress HEENT: Reports: Pupils Equal, Pupils Reactive, EOMI, Mucous Membr. Moist/[place]in Neck: Reports: Supple Lungs: Reports: Clear to Auscultation, Normal Respiratory Effort Cardiovascular: Reports: Regular Rate, Regular Rhythm, No Murmurs GI/Abdominal Exam: Normal Bowel Sounds, Soft, Non-Tender, No Organomegaly, No Distention (Male) Exam: No Hernia, Normal Inspection, Normal Prostate, Circumcised Rectal (Males) Exam: Deferred Back Exam: Reports: Normal Inspection, Full Range of Motion Extremities: Normal Inspection, Normal Range of Motion, Non-Tender, No Pedal Edema, Normal Capillary Refill Skin: Reports: Warm, Dry, Intact Neurological: Reports: No New Focal Deficit Psy/Mental Status: Reports: Alert, Normal Affect, Normal Mood *Q Meaningful Use (DIS) - VTE *Q VTE Criteria *Q: - Stroke *Q Stroke Criteria *Q: - AMI *Q AMI Criteria *Q:
[2017-12-14] MEDS: Morphine 2 MG/ML Syringe IVPUSH PRN (08:41)
[2017-12-14 08:58] VITALS: BP 127/67
--- NOTE | 2017-12-14 14:41 | CR ---
EXAM DATE: 12/13/17 PATIENT'S AGE: 32 Patient: MAX CRYSTAL Facility: [place], [place] Site . Site : 1985 Study: XRay Chest [id number] 2:38:15 PM Ordering Physician: Doctor Marshall Final Report: CHEST 1 VIEW AP INDICATION: Chest pain. IMPRESSION: Normal heart size and vascular pattern. Lungs are clear. No pneumothorax or pleural abnormality. ECG Monitor leads projected over the patient. Dictated by William Monteiro MD @ Dec 13 2017 2:55PM (Electronic Signature) Report Signed by Proxy. NATE
== END 2017-12-14 09:50 | disposition home or self-care (01) ==
LOC: MW.ED 13:58 → MW.MS 15:08
PROVIDERS: ADMIT Family Medicine; ATTEND Family Medicine
DX: R07.9 Chest pain, unspecified (principal); Z88.2 Allergy status to sulfonamides; Z82.49 Family history of ischemic heart disease and other diseases of the circulatory system
CPT/HCPCS: 36415; 71045; 80048; 80053; 80061; 84484; 85025; 93005; 96372; 96374; 96375; 96376; 99285; A9270; G0378; J1650; J2060; J2270; 99284

== ENCOUNTER 2017-12-17 11:27 | Emergency (ER) | payer MEDICAID ==
--- NOTE | 2017-12-17 12:10 | EDM.PDOC ---
ED HPI GENERAL MEDICAL PROBLEM - General Chief Complaint: Chest Pain Stated Complaint: CHEST PAIN Time Seen by Provider: 12/17/17 12:07 Source of Information: Reports: Patient - History of Present Illness INITIAL COMMENTS - FREE TEXT/NARRATIVE: HISTORY AND PHYSICAL: History of present illness: [ Patient with history of anxiety presents with chest pain shortness of breath not associated with any diaphoresis or radiation to arm neck or jaw, he has had a recent ER visit and hospital stay with cardiac rule out and found to be anxiety symptoms. 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 We discussed not taking Ativan while driving heavy equipment motor vehicles or making important business decisions. As well as other hazardous activities. He voices understanding of this he denies any suicidal homicidal ideation we will start Paxil for him today and he has follow-up scheduled on the with his primary care provider Currently chest pain has resolved 0 out of 10 no shortness of breath patient is asymptomatic as it taken his last Ativan prior to arrival it seems to have worked as patient is in no distress no fever nausea vomiting diarrhea constipation chest pain shortness breath headache dizziness palpitation about a urine symptoms ] Review of systems: As per history of present illness and below otherwise all systems reviewed and negative. Past medical history: As per history of present illness and as reviewed below otherwise noncontributory. Surgical history: As per history of present illness and as reviewed below otherwise noncontributory. Social history: No reported history of drug or alcohol abuse. Family history: As per history of present illness and as reviewed below otherwise noncontributory. Physical exam: HEENT: Atraumatic, normocephalic, pupils reactive, negative for conjunctival pallor or scleral icterus, mucous membranes moist, throat clear, neck supple, nontender, trachea midline. Lungs: Clear to auscultation, breath sounds equal bilaterally, chest nontender. Heart: S1S2, regular, negative for clicks, rubs, or JVD. Abdomen: Soft, nondistended, nontender. Negative for masses or hepatosplenomegaly. Negative for costovertebral tenderness. Pelvis: Stable nontender. Genitourinary: Deferred. Rectal: Deferred. Extremities: Atraumatic, negative for cords or calf pain. Neurovascular unremarkable. Neuro: Awake, alert, oriented. Cranial nerves II through XII unremarkable. Cerebellum unremarkable. Motor and sensory unremarkable throughout. Exam nonfocal. Diagnostics: [EKG ] Therapeutics: [Patient took Ativan from his own stock Ativan 0.5 by mouth twice a day #10 no refill Paxil 20 mg by mouth daily #30 no refill ] Impression: [Anxiety] Definitive disposition and diagnosis as appropriate pending reevaluation and review of above. Chest Pain Pain Score (Numeric/FACES): 5 - Related Data Allergies Allergy/AdvReac Type Severity Reaction Status Date / Time Sulfa (Sulfonamide Allergy Rash Verified 12/17/17 11:47 Antibiotics) Home Meds: Home Meds LORazepam [Ativan] 1 mg PO Q6H PRN #4 tablet 12/14/17 [Rx] Past Medical History - Past Health History Medical/Surgical History: Denies Medical/Surgical History HEENT History: Reports: None Cardiovascular History: Reports: None Respiratory History: Reports: None Gastrointestinal History: Reports: None Genitourinary History: Reports: None Musculoskeletal History: Reports: None Neurological History: Reports: None Psychiatric History: Reports: Anxiety Endocrine/Metabolic History: Reports: None Hematologic History: Reports: None Immunologic History: Reports: None Oncologic (Cancer) History: Reports: None Dermatologic History: Reports: None - Infectious Disease History Infectious Disease History: Reports: Chicken Pox - Past Surgical History Head Surgeries/Procedures: Reports: None HEENT Surgical History: Reports: Tonsillectomy Cardiovascular Surgical History: Reports: None Respiratory Surgical History: Reports: None GI Surgical History: Reports: None Male Surgical History: Reports: None Endocrine Surgical History: Reports: None Neurological Surgical History: Reports: None Musculoskeletal Surgical History: Reports: None Oncologic Surgical History: Reports: None Dermatological Surgical History: Reports: None Social & Family History - Family History Family Medical History: Noncontributory Cardiac: Reports: [place] - Tobacco Use Smoking Status *Q: Current Every Day Smoker Years of Tobacco use: 10 Packs/Tins Daily: 1 Second Hand Smoke Exposure: No - Caffeine Use Caffeine Use: Reports: Coffee - Alcohol Use Days Per Week of Alcohol Use: 1 Number of Drinks Per Day: 3 Total Drinks Per Week: 3 - Recreational Drug Use Recreational Drug Use: No - Living Situation & Occupation Occupation: Employed ED ROS GENERAL - Review of Systems Review Of Systems: ROS reveals no pertinent complaints other than HPI. ED EXAM, GENERAL - Physical Exam Exam: See Below Course - Vital Signs Last Recorded V/S: Last Vital Signs Temp 97.9 F 12/17/17 11:47 Pulse 88 12/17/17 11:47 Resp 18 12/17/17 11:47 BP 145/84 H 12/17/17 11:47 Pulse Ox 100 12/17/17 11:47 - Orders/Labs/Meds Orders: Active Orders 24 hr Category Date Time Status EKG Documentation Completion [RC] STAT Care 12/17/17 11:38 Active Departure - Departure Time of Disposition: 12:10 Disposition: Home, Self-Care 01 Condition: Good Clinical Impression: Anxiety - Discharge Information Referrals: PCP,None [Primary Care Provider] - Additional Instructions: The following information is given to patients seen in the emergency department who are being discharged to home. This information is to outline your options for follow-up care. We provide all patients seen in our emergency department with a follow-up referral. The need for follow-up, as well as the timing and circumstances, are variable depending upon the specifics of your emergency department visit. If you don't have a primary care physician on staff, we will provide you with a referral. We always advise you to contact your personal physician following an emergency department visit to inform them of the circumstance of the visit and for follow-up with them and/or the need for any referrals to a consulting specialist. The emergency department will also refer you to a specialist when appropriate. This referral assures that you have the opportunity for follow-up care with a specialist. All of these measure are taken in an effort to provide you with optimal care, which includes your follow-up. Under all circumstances we always encourage you to contact your private physician who remains a resource for coordinating your care. When calling for follow-up care, please make the office aware that this follow-up is from your recent emergency room visit. If for any reason you are refused follow-up, please contact the [facility] emergency department at and asked to speak to the emergency department charge nurse. - My Orders Last 24 Hours: My Active Orders 12/17/17 11:38 EKG Documentation Completion [RC] STAT - Assessment/Plan Last 24 Hours: My Active Orders 12/17/17 11:38 EKG Documentation Completion [RC] STAT
[2017-12-17 17:04] VITALS: BP 137/82
== END 2017-12-17 12:20 | disposition home or self-care (01) ==
LOC: MW.ED 11:27
DX: F41.9 Anxiety disorder, unspecified (principal); F17.210 Nicotine dependence, cigarettes, uncomplicated; Z88.2 Allergy status to sulfonamides
CPT/HCPCS: 93005; 99284; 99284-25

== ENCOUNTER 2018-12-11 20:07 | Emergency (ER) | payer MEDICAID ==
[2018-12-11] MEDS ORDERED: Sodium Chloride 0.9% 1,000 ML IV ONE (20:29)
[2018-12-11] MEDS ORDERED: Sodium Chloride 0.9% 10 ML Syringe FLUSH PRN (20:29)
[2018-12-11] MEDS ORDERED: Morphine 2 MG/ML Syringe IVPUSH ONE (20:29)
[2018-12-11] MEDS ORDERED: Sodium Chloride 0.9% 2.5 ML Syringe FLUSH PRN (20:29)
[2018-12-11] MEDS ORDERED: Ketorolac 30 MG/ML SDV IVPUSH ONE (20:29)
[2018-12-11] MEDS ORDERED: Ondansetron 4 MG/2 ML SDV IVPUSH ONE (20:29)
--- NOTE | 2018-12-11 20:32 | EDM.PDOC ---
ED HPI GENERAL MEDICAL PROBLEM - General Chief Complaint: Flank Pain Stated Complaint: KIDNEY STONE Time Seen by Provider: 12/11/18 20:25 - History of Present Illness INITIAL COMMENTS - FREE TEXT/NARRATIVE: HISTORY AND PHYSICAL: History of present illness: The patient is a 33-year-old male who says that he has had a kidney stone in the past and was seen here, and per the computer it was back in 2016, but he did not have any surgical intervention or follow-up with urology and presents with onset of left flank pain that started last evening and came on suddenly. He has had some nausea and one episode of vomiting today but no fevers chills and no trauma to the area. He says the pain is in the left flank in the left lower quadrant and radiates to his testicle but he doesn't have any swelling or pain in his testicles. He has not seen blood in his urine but he has had some discomfort with urination. He did not take anything [id number] for pain prior to coming here and he has no midline back pain. Is no neurosensory changes in his legs and has not noticed any lumps or bumps in his groin area Review of systems: As per history of present illness and below otherwise all systems reviewed and negative. Past medical history: As per history of present illness and as reviewed below otherwise noncontributory. Surgical history: As per history of present illness and as reviewed below otherwise noncontributory. Social history: No reported history of drug or alcohol abuse. Family history: As per history of present illness and as reviewed below otherwise noncontributory. Physical exam: General: Well-developed well-nourished man who is very uncomfortable and cannot sit still in my room. He is nontoxic appearing vital signs were noted by me HEENT: Atraumatic, normocephalic, negative for conjunctival pallor or scleral icterus, mucous membranes moist, throat clear, neck supple, nontender, trachea midline. Lungs: Clear to auscultation, breath sounds equal bilaterally, chest nontender. Heart: S1S2, regular rate and rhythm no overt murmurs Abdomen: Soft, nondistended, nontender. Negative for masses or hepatosplenomegaly. Negative for costovertebral tenderness. I cannot reproduce the pain on palpation and the patient says it's more deep and there is slightly hypoactive bowel sounds Pelvis: Stable nontender. Genitourinary: Testicles are descended bilaterally and there is no discrete testicular swelling or tenderness and no overt hernial masses or lesions. Rectal: Deferred. Extremities: Atraumatic, negative for cords or calf pain. Neurovascular unremarkable. Neuro: Awake, alert, oriented. Cranial nerves II through XII unremarkable. Cerebellum unremarkable. Motor and sensory unremarkable throughout. Exam nonfocal. Diagnostics: CBC CMP UA with reflex culture CT scan of the abdomen and pelvis Therapeutics: IV fluids Toradol morphine Zofran Dilaudid Flomax urine strainers He is feeling better but intermittently will have discomfort and he is aware of all testing results. I will give him urine strainers as well as medications from [facility] for home and advised him to push hydration and call for follow- up with the urology group at [facility] as Dr. Wu is out of town for couple of weeks. Impression: Distal left UVJ kidney stone Definitive disposition and diagnosis as appropriate pending reevaluation and review of above. L flank/Testicle Pain Score (Numeric/FACES): 10 - Related Data Allergies Allergy/AdvReac Type Severity Reaction Status Date / Time Sulfa (Sulfonamide Allergy Rash Verified 12/11/18 20:40 Antibiotics) Home Meds: Home Meds ClonazePAM [KlonoPIN] 1 mg PO Q6HR 09/19/18 [History] Pregabalin [Lyrica] 75 mg PO DAILY 12/11/18 [History] Past Medical History - Past Health History Medical/Surgical History: Denies Medical/Surgical History HEENT History: Reports: None Cardiovascular History: Reports: None Respiratory History: Reports: None Gastrointestinal History: Reports: None Genitourinary History: Reports: None Musculoskeletal History: Reports: None Neurological History: Reports: None Psychiatric History: Reports: Anxiety Endocrine/Metabolic History: Reports: None Hematologic History: Reports: None Immunologic History: Reports: None Oncologic (Cancer) History: Reports: None Dermatologic History: Reports: None - Infectious Disease History Infectious Disease History: Reports: None - Past Surgical History Head Surgeries/Procedures: Reports: None HEENT Surgical History: Reports: Tonsillectomy Cardiovascular Surgical History: Reports: None Respiratory Surgical History: Reports: None GI Surgical History: Reports: None Male Surgical History: Reports: None Endocrine Surgical History: Reports: None Neurological Surgical History: Reports: None Musculoskeletal Surgical History: Reports: None Oncologic Surgical History: Reports: None Dermatological Surgical History: Reports: None Social & Family History - Family History Family Medical History: Noncontributory Cardiac: Reports: [place] - Caffeine Use Caffeine Use: Reports: Coffee - Living Situation & Occupation Occupation: Employed ED ROS GENERAL - Review of Systems Review Of Systems: ROS reveals no pertinent complaints other than HPI. ED EXAM, GENERAL - Physical Exam Exam: See Below (See dictation) Course - Vital Signs Last Recorded V/S: Last Vital Signs Temp 36.6 C 12/11/18 20:37 Pulse 50 L 12/11/18 21:56 Resp 18 12/11/18 21:56 BP 122/59 L 12/11/18 21:56 Pulse Ox 100 12/11/18 21:56 - Orders/Labs/Meds Orders: Active Orders 24 hr Category Date Time Status CULTURE URINE [RM] Stat Lab 12/11/18 21:50 Received Sodium Chloride 0.9% [Saline Flush] Med 12/11/18 20:29 Active 10 ml FLUSH ASDIRECTED PRN Sodium Chloride 0.9% [Saline Flush] Med 12/11/18 20:29 Active 2.5 ml FLUSH ASDIRECTED PRN Saline Lock Insert [OM.PC] Stat Oth 12/11/18 20:29 Ordered Medication Orders Sodium Chloride (Saline Flush) 10 ml FLUSH ASDIRECTED PRN PRN Reason: Keep Vein Open Last Admin: 12/11/18 20:50 Dose: 10 ml Sodium Chloride (Saline Flush) 2.5 ml FLUSH ASDIRECTED PRN PRN Reason: Keep Vein Open Last Admin: 12/11/18 20:50 Dose: 2.5 ml Labs: Laboratory Tests 12/11/18 12/11/18 12/11/18 Range/Units 20:20 20:20 21:50 WBC 5.41 (4.0-11.0) K/uL RBC 4.63 (4.50-5.90) M/uL Hgb 14.0 (13.0-17.0) g/dL Hct 40.7 (38.0-50.0) % MCV 87.9 (80.0-98.0) fL MCH 30.2 (27.0-32.0) pg MCHC 34.4 (31.0-37.0) g/dL RDW Std Deviation 40.5 (28.0-62.0) fl RDW Coeff of Angela 13 (11.0-15.0) % Plt Count 224 (150-400) K/uL MPV 10.20 (7.40-12.00) fL Neut % (Auto) 68.8 (48.0-80.0) % Lymph % (Auto) 19.0 (16.0-40.0) % [place] % (Auto) 11.1 (0.0-15.0) % Eos % (Auto) 0.4 (0.0-7.0) % Baso % (Auto) 0.7 (0.0-1.5) % Neut # (Auto) 3.7 (1.4-5.7) K/uL Lymph # (Auto) 1.0 (0.6-2.4) K/uL [place] # (Auto) 0.6 (0.0-0.8) K/uL Eos # (Auto) 0.0 (0.0-0.7) K/uL Baso # (Auto) 0.0 (0.0-0.1) K/uL Nucleated RBC % 0.0 /100WBC Nucleated RBCs # 0 K/uL Sodium 139 (136-148) mmol/L Potassium 4.0 (3.5-5.1) mmol/L Chloride 105 (98-107) mmol/L Carbon Dioxide 24.4 (21.0-32.0) mmol/L BUN 15 (7.0-18.0) mg/dL Creatinine 1.1 (0.8-1.3) mg/dL Est Cr Clr Drug Dosing 97.70 mL/min Estimated GFR (MDRD) > 60.0 ml/min Glucose 106 (74-106) mg/dL Calcium 9.6 (8.5-10.1) mg/dL Total Bilirubin 1.4 H (0.2-1.0) mg/dL AST 25 (15-37) IU/L ALT 25 (14-63) IU/L Alkaline Phosphatase 67 (46-116) U/L Total Protein 7.8 (6.4-8.2) g/dL Albumin 4.6 (3.4-5.0) g/dL Globulin 3.2 (2.6-4.0) g/dL Albumin/Globulin Ratio 1.4 (0.9-1.6) Urine Color YELLOW Urine Appearance CLEAR Urine pH 6.0 (5.0-8.0) Ur Specific Simpson <= 1.005 (1.001-1.035) Urine Protein NEGATIVE (NEGATIVE) mg/dL Urine Glucose (UA) NEGATIVE (NEGATIVE) mg/dL Urine Ketones NEGATIVE (NEGATIVE) mg/dL Urine Occult Blood MODERATE H (NEGATIVE) Urine Nitrite NEGATIVE (NEGATIVE) Urine Bilirubin NEGATIVE (NEGATIVE) Urine Urobilinogen 0.2 (<2.0) EU/dL Ur Leukocyte Esterase SMALL H (NEGATIVE) Urine RBC 0-2 (0-2/HPF) Urine WBC 0-4 (0-5/HPF) Ur Epithelial Cells OCCASIONAL (NONE-FEW) Urine Bacteria FEW (NEGATIVE) Meds: Medications Generic Name Dose Route Start Last Admin Trade Name Freq PRN Reason Stop Dose Admin Sodium Chloride 10 ml 12/11/18 20:29 12/11/18 20:50 Saline Flush FLUSH 10 ml ASDIRECTED PRN Administration Keep Vein Open Sodium Chloride 2.5 ml 12/11/18 20:29 12/11/18 20:50 Saline Flush FLUSH 2.5 ml ASDIRECTED PRN Administration Keep Vein Open Discontinued Medications Generic Name Dose Route Start Last Admin Trade Name Freq PRN Reason Stop Dose Admin Hydromorphone HCl 1 mg 12/11/18 21:33 12/11/18 21:39 Dilaudid IVPUSH 12/11/18 21:34 1 mg ONETIME ONE Administration Sodium Chloride 1,000 mls @ 999 mls/hr 12/11/18 20:29 12/11/18 20:46 Normal Saline IV 12/11/18 21:29 999 mls/hr STAT ONE Administration Ketorolac Tromethamine 30 mg 12/11/18 20:29 12/11/18 20:46 Toradol IVPUSH 12/11/18 20:30 30 mg ONETIME ONE Administration Morphine Sulfate 4 mg 12/11/18 20:29 12/11/18 20:48 Morphine IVPUSH 12/11/18 20:30 4 mg ONETIME ONE Administration Ondansetron HCl 4 mg 12/11/18 20:29 12/11/18 20:47 Zofran IVPUSH 12/11/18 20:30 4 mg ONETIME ONE Administration Tamsulosin HCl 0.4 mg 12/11/18 21:42 12/11/18 21:56 Flomax PO 12/11/18 21:43 0.4 mg ONETIME ONE Administration Departure - Departure Time of Disposition: 22:17 Disposition: Home, Self-Care 01 Condition: Good Clinical Impression: Ureterolithiasis - Discharge Information Referrals: PCP,Unknown [Primary Care Provider] - Forms: ED Department Discharge Additional Instructions: The following information is given to patients seen in the emergency department who are being discharged to home. This information is to outline your options for follow-up care. We provide all patients seen in our emergency department with a follow-up referral. The need for follow-up, as well as the timing and circumstances, are variable depending upon the specifics of your emergency department visit. If you don't have a primary care physician on staff, we will provide you with a referral. We always advise you to contact your personal physician following an emergency department visit to inform them of the circumstance of the visit and for follow-up with them and/or the need for any referrals to a consulting specialist. The emergency department will also refer you to a specialist when appropriate. This referral assures that you have the opportunity for followup care with a specialist. All of these measure are taken in an effort to provide you with optimal care, which includes your followup. Under all circumstances we always encourage you to contact your private physician who remains a resource for coordinating your care. When calling for followup care, please make the office aware that this follow-up is from your recent emergency room visit. If for any reason you are refused follow-up, please contact the [facility] emergency department at and ask to speak to the emergency department charge nurse. [facility] Primary care- [place] [address] Please strain all urine looking for the kidney stone and use all medications as prescribed, Flomax [place] and Zofran and Cipro. Our urologist Dr. Wu is out of town until December 20 so please contact [facility] in [place] and speak with the urology department and get a follow-up appointment with them. When you call [facility] please make sure you tell them that your seen in our ER and you have a kidney stone and need follow-up area push hydration and return to ER as needed as discussed. - My Orders Last 24 Hours: My Active Orders 12/11/18 20:29 Sodium Chloride 0.9% [Saline Flush] 10 ml FLUSH ASDIRECTED PRN Sodium Chloride 0.9% [Saline Flush] 2.5 ml FLUSH ASDIRECTED PRN Saline Lock Insert [OM.PC] Stat 12/11/18 21:50 CULTURE URINE [RM] Stat - Assessment/Plan Last 24 Hours: My Active Orders 12/11/18 20:29 Sodium Chloride 0.9% [Saline Flush] 10 ml FLUSH ASDIRECTED PRN Sodium Chloride 0.9% [Saline Flush] 2.5 ml FLUSH ASDIRECTED PRN Saline Lock Insert [OM.PC] Stat 12/11/18 21:50 CULTURE URINE [RM] Stat
[2018-12-11 20:53] LABS: CHLORIDE,CL 105 mmol/L (98-107); SODIUM,NA 139 mmol/L (136-148)
[2018-12-11] MEDS ORDERED: HYDROmorphone 1 MG/ML Syringe IVPUSH ONE (21:33)
--- NOTE | 2018-12-11 21:40 | CT ---
Indication: Left flank pain. Technique: Multiple contiguous axial images were obtained from the lung bases through the symphysis pubis without intravenous contrast enhancement. Please note that all CT scans at this facility use dose modulation, iterative reconstruction, and/or weight-based dosing when appropriate to reduce radiation dose to as low as reasonably achievable. Comparison: None Findings: The lung bases are clear. Heart is normal in size. The unenhanced liver, gallbladder, spleen, pancreas, adrenals, and right kidney are normal. No intrahepatic biliary ductal dilatation is identified. Mild left hydronephrosis and hydroureter identified. A calculus is identified within the left hemipelvis, most likely at the ureteral vesicular junction. This is best seen on image number 106, series 201. This measures approximately 2 millimeters in size. In the pelvis, the urinary bladder and prostate gland are normal. The small and large bowel are normal in caliber. The aorta is normal in caliber. No free air or free fluid is identified within the abdomen or pelvis. No lytic or blastic lesions are identified within the spine. Impression: Left-sided hydronephrosis and hydroureter with a probable 2 millimeter distal left ureteral calculus. Please note that all CT scans at this facility use dose modulation, iterative reconstruction, and/or weight-based dosing when appropriate to reduce radiation dose to as low as reasonably achievable. Dictated by Anayeli Lux MD @ Dec 11 2018 9:35PM Signed by Dr. Anayeli Lux @ Dec 11 2018 9:39PM
[2018-12-11] MEDS ORDERED: Tamsulosin 0.4 MG Cap.ER PO ONE (21:42)
[2018-12-11 22:47] VITALS: BP 128/68
== END 2018-12-11 22:48 | disposition home or self-care (01) ==
LOC: MW.ED 20:07
DX: N13.2 Hydronephrosis with renal and ureteral calculous obstruction (principal); Z79.899 Other long term (current) drug therapy; Z88.2 Allergy status to sulfonamides
CPT/HCPCS: 36415; 74176; 80053; 81001; 85025; 87086; 96361; 96374; 96375; 99284; A9270; J1170; J1885; J2270; J2405; J7040

== ENCOUNTER 2018-12-18 09:09 | Emergency (ER) | payer MEDICAID ==
[2018-12-18] MEDS ORDERED: Ondansetron 4 MG/2 ML SDV IVPUSH ONE (09:15)
[2018-12-18] MEDS ORDERED: Tamsulosin 0.4 MG Cap.ER PO ONE (09:15)
[2018-12-18] MEDS ORDERED: Ketorolac 30 MG/ML SDV IVPUSH ONE (09:15)
[2018-12-18] MEDS ORDERED: Sodium Chloride 0.9% 1,000 ML IV ONE (09:15)
--- NOTE | 2018-12-18 09:26 | EDM.PDOC ---
ED HPI GENERAL MEDICAL PROBLEM - General Chief Complaint: Genitourinary Problem Stated Complaint: KIDNEY STONES Time Seen by Provider: 12/18/18 09:23 - History of Present Illness INITIAL COMMENTS - FREE TEXT/NARRATIVE: HISTORY AND PHYSICAL: History of present illness: Patient 33-year-old white male presents with concern of low back pain with radiation to his groin became acutely today he's had a history of urolithiasis in the past his last episode was approximately one year prior to the no fever chills nausea vomiting or other complaints Review of systems: As per history of present illness and below otherwise all systems reviewed and negative. Past medical history: As per history of present illness and as reviewed below otherwise noncontributory. Surgical history: As per history of present illness and as reviewed below otherwise noncontributory. Social history: No reported history of drug or alcohol abuse. Family history: As per history of present illness and as reviewed below otherwise noncontributory. Physical exam: HEENT: Atraumatic, normocephalic, pupils reactive, negative for conjunctival pallor or scleral icterus, mucous membranes moist, throat clear, neck supple, nontender, trachea midline. Lungs: Clear to auscultation, breath sounds equal bilaterally, chest nontender. Heart: S1S2, regular, negative for clicks, rubs, or JVD. Abdomen: Soft, nondistended, nontender. Negative for masses or hepatosplenomegaly. Bilateral costovertebral tenderness. Pelvis: Stable nontender. Genitourinary: Deferred. Rectal: Deferred. Extremities: Atraumatic, negative for cords or calf pain. Neurovascular unremarkable. Neuro: Awake, alert, oriented. Cranial nerves II through XII unremarkable. Cerebellum unremarkable. Motor and sensory unremarkable throughout. Exam nonfocal. Diagnostics: CBC CMP UA with reflex CT abdomen and pelvis Therapeutics: Saline 1 L bolus and Toradol 30 mg IV Zofran 4 mg IV Flomax 0.4 mg by mouth Impression: #1 flank pain #2 history of urolithiasis Definitive disposition and diagnosis as appropriate pending reevaluation and review of above. bialteral flakn Pain Score (Numeric/FACES): 5 - Related Data Allergies Allergy/AdvReac Type Severity Reaction Status Date / Time Sulfa (Sulfonamide Allergy Rash Verified 12/18/18 09:18 Antibiotics) Home Meds: Home Meds ClonazePAM [KlonoPIN] 1 mg PO Q6HR 09/19/18 [History] Pregabalin [Lyrica] 75 mg PO DAILY 12/11/18 [History] Past Medical History - Past Health History Medical/Surgical History: Denies Medical/Surgical History HEENT History: Reports: None Cardiovascular History: Reports: None Respiratory History: Reports: None Gastrointestinal History: Reports: None Genitourinary History: Reports: Renal Calculus Musculoskeletal History: Reports: None Neurological History: Reports: None Psychiatric History: Reports: Anxiety Endocrine/Metabolic History: Reports: None Hematologic History: Reports: None Immunologic History: Reports: None Oncologic (Cancer) History: Reports: None Dermatologic History: Reports: None - Infectious Disease History Infectious Disease History: Reports: None - Past Surgical History Head Surgeries/Procedures: Reports: None HEENT Surgical History: Reports: Tonsillectomy Cardiovascular Surgical History: Reports: None Respiratory Surgical History: Reports: None GI Surgical History: Reports: None Male Surgical History: Reports: None Endocrine Surgical History: Reports: None Neurological Surgical History: Reports: None Musculoskeletal Surgical History: Reports: None Oncologic Surgical History: Reports: None Dermatological Surgical History: Reports: None Social & Family History - Family History Family Medical History: Noncontributory Cardiac: Reports: [place] - Tobacco Use Smoking Status *Q: Never Smoker Second Hand Smoke Exposure: No - Caffeine Use Caffeine Use: Reports: None - Recreational Drug Use Recreational Drug Use: No - Living Situation & Occupation Occupation: Employed ED ROS GENERAL - Review of Systems Review Of Systems: ROS reveals no pertinent complaints other than HPI. ED EXAM, GENERAL - Physical Exam Exam: See Below (See dictation) Course - Vital Signs Last Recorded V/S: Last Vital Signs Temp 36.2 C 12/18/18 09:15 Pulse 71 12/18/18 09:15 Resp 18 12/18/18 09:15 BP 142/77 H 12/18/18 09:15 Pulse Ox 97 12/18/18 09:15 - Orders/Labs/Meds Labs: Laboratory Tests 12/18/18 12/18/18 12/18/18 Range/Units 09:19 09:30 09:30 WBC 4.21 (4.0-11.0) K/uL RBC 5.08 (4.50-5.90) M/uL Hgb 15.5 (13.0-17.0) g/dL Hct 44.3 (38.0-50.0) % MCV 87.2 (80.0-98.0) fL MCH 30.5 (27.0-32.0) pg MCHC 35.0 (31.0-37.0) g/dL RDW Std Deviation 40.2 (28.0-62.0) fl RDW Coeff of Angela 13 (11.0-15.0) % Plt Count 275 (150-400) K/uL MPV 10.10 (7.40-12.00) fL Neut % (Auto) 57.7 (48.0-80.0) % Lymph % (Auto) 25.7 (16.0-40.0) % [place] % (Auto) 14.7 (0.0-15.0) % Eos % (Auto) 1.2 (0.0-7.0) % Baso % (Auto) 0.7 (0.0-1.5) % Neut # (Auto) 2.4 (1.4-5.7) K/uL Lymph # (Auto) 1.1 (0.6-2.4) K/uL [place] # (Auto) 0.6 (0.0-0.8) K/uL Eos # (Auto) 0.1 (0.0-0.7) K/uL Baso # (Auto) 0.0 (0.0-0.1) K/uL Nucleated RBC % 0.0 /100WBC Nucleated RBCs # 0 K/uL Sodium 139 (136-148) mmol/L Potassium 3.8 (3.5-5.1) mmol/L Chloride 103 (98-107) mmol/L Carbon Dioxide 24.6 (21.0-32.0) mmol/L BUN 16 (7.0-18.0) mg/dL Creatinine 1.0 (0.8-1.3) mg/dL Est Cr Clr Drug Dosing 110.86 mL/min Estimated GFR (MDRD) > 60.0 ml/min Glucose 110 H (74-106) mg/dL Calcium 9.9 (8.5-10.1) mg/dL Total Bilirubin 1.8 H (0.2-1.0) mg/dL AST 18 (15-37) IU/L ALT 22 (14-63) IU/L Alkaline Phosphatase 63 (46-116) U/L Total Protein 8.1 (6.4-8.2) g/dL Albumin 4.7 (3.4-5.0) g/dL Globulin 3.4 (2.6-4.0) g/dL Albumin/Globulin Ratio 1.4 (0.9-1.6) Urine Color YELLOW Urine Appearance CLEAR Urine pH 6.0 (5.0-8.0) Ur Specific [place] 1.025 (1.001-1.035) Urine Protein NEGATIVE (NEGATIVE) mg/dL Urine Glucose (UA) NEGATIVE (NEGATIVE) mg/dL Urine Ketones TRACE H (NEGATIVE) mg/dL Urine Occult Blood LARGE H (NEGATIVE) Urine Nitrite NEGATIVE (NEGATIVE) Urine Bilirubin SMALL H (NEGATIVE) Urine Ictotest NEGATIVE Urine Urobilinogen 0.2 (<2.0) EU/dL Ur Leukocyte Esterase NEGATIVE (NEGATIVE) Urine RBC 7-12 (0-2/HPF) Urine WBC 1-3 (0-5/HPF) Ur Epithelial Cells RARE (NONE-FEW) Urine Bacteria FEW (NEGATIVE) Urine Mucus LIGHT (NONE-MOD) Meds: Medications Discontinued Medications Generic Name Dose Route Start Last Admin Trade Name Freq PRN Reason Stop Dose Admin Sodium Chloride 1,000 mls @ 999 mls/hr 12/18/18 09:15 12/18/18 09:30 Normal Saline IV 12/18/18 10:15 999 mls/hr STAT ONE Administration Ketorolac Tromethamine 30 mg 12/18/18 09:15 12/18/18 09:30 Toradol IVPUSH 12/18/18 09:16 30 mg ONETIME ONE Administration Ondansetron HCl 4 mg 12/18/18 09:15 12/18/18 09:30 Zofran IVPUSH 12/18/18 09:16 4 mg ONETIME ONE Administration Tamsulosin HCl 0.4 mg 12/18/18 09:15 12/18/18 09:30 Flomax PO 12/18/18 09:16 0.4 mg ONETIME ONE Administration Departure - Departure Time of Disposition: 11:32 Disposition: Home, Self-Care 01 Condition: Good Clinical Impression: Flank pain - Discharge Information Instructions: Kidney Stones, [id number] Referrals: Rigo Morgan MD [Primary Care Provider] - Forms: ED Department Discharge Additional Instructions: The following information is given to patients seen in the emergency department who are being discharged to home. This information is to outline your options for follow-up care. We provide all patients seen in our emergency department with a follow-up referral. The need for follow-up, as well as the timing and circumstances, are variable depending upon the specifics of your emergency department visit. If you don't have a primary care physician on staff, we will provide you with a referral. We always advise you to contact your personal physician following an emergency department visit to inform them of the circumstance of the visit and for follow-up with them and/or the need for any referrals to a consulting specialist. The emergency department will also refer you to a specialist when appropriate. This referral assures that you have the opportunity for followup care with a specialist. All of these measure are taken in an effort to provide you with optimal care, which includes your followup. Under all circumstances we always encourage you to contact your private physician who remains a resource for coordinating your care. When calling for followup care, please make the office aware that this follow-up is from your recent emergency room visit. If for any reason you are refused follow-up, please contact the [facility] emergency department at and asked to speak to the emergency department charge nurse. Zofran as prescribed push fluids follow primary medical doctor as discussed return as needed as discussed
[2018-12-18 10:21] LABS: CHLORIDE,CL 103 mmol/L (98-107); SODIUM,NA 139 mmol/L (136-148)
--- NOTE | 2018-12-18 11:16 | CT ---
INDICATION: Right flank pain history of stones. TECHNIQUE: Noncontrast CT abdomen and pelvis. Coronal sagittal reformatted images obtained. Scratch COMPARISON: CT abdomen and pelvis 12/11/2018. Findings: Heart size is normal. No pericardial effusion or pleural effusion. The lung bases are clear. Unenhanced liver spleen pancreas adrenal glands are unremarkable. Gallbladder is unremarkable. No renal calculi. No hydronephrosis is seen. Impression: No acute findings in the abdomen or pelvis. No hydronephrosis or renal calculi is visualized. Normal appendix. Please note that all CT scans at this facility use dose modulation, iterative reconstruction, and/or weight-based dosing when appropriate to reduce radiation dose to as low as reasonably achievable. Dictated by Kristin Rodríguez MD @ Dec 18 2018 11:02AM Signed by Dr. Kristin Rodríguez @ Dec 18 2018 11:14AM
[2018-12-18 11:48] VITALS: BP 109/68
== END 2018-12-18 11:45 | disposition home or self-care (01) ==
LOC: MW.ED 09:09
DX: R10.30 Lower abdominal pain, unspecified (principal); F41.9 Anxiety disorder, unspecified; Z88.2 Allergy status to sulfonamides; Z79.899 Other long term (current) drug therapy; Z87.442 Personal history of urinary calculi
CPT/HCPCS: 74176; 80053; 81001; 85025; 96361; 96374; 96375; 99284; A9270; J1885; J2405; J7040

== ENCOUNTER 2019-01-03 09:42 | Emergency (ER) | payer SELFPAY ==
--- NOTE | 2019-01-03 10:05 | EDM.PDOC ---
ED [facility] GENERAL MEDICAL PROBLEM - General Chief Complaint: Abdominal Pain Stated Complaint: POSSIBLE HERNIA Time Seen by Provider: 01/03/19 09:59 Source of Information: Reports: Patient History Limitations: Reports: No Limitations - History of Present Illness INITIAL COMMENTS - FREE TEXT/NARRATIVE: HISTORY AND PHYSICAL: History of present illness: Patient is a 33-year-old male presents to the ED today with concerns of his umbilical hernia hurting that tracks down into his left scrotum. He rates his pain a 10/10 sharp and more severe with touching or moving the testicle or the umbilicus. Patient states he has felt nauseous due to pain. Patient was here a few weeks ago and states that he took a few left over of his hydrocodone thinking the pain would go away but it has not. Patient states he has had difficulties having a bowel movement. He states his last bowel movement was 2 days ago. He denies any blood in his stool or any change in the consistency of the stool. He also states he's been having difficulties urinating. He states that it does burn to urinate and that he has noticed some blood in his urine. He denies any penile drainage. He states he has been able to pass gas. He has been able to eat and drink per his normal. Patient denies fever, chills, vomiting, diarrhea, flank pain, trauma to the area , shortness of breath, difficulties breathing, chest pain, or all other GI, , cardiovascular, or respiratory concerns. Patient does have a history of kidney stones, rheumatoid arthritis, and fibromyalgia. Review of systems: As per history of present illness and below otherwise all systems reviewed and negative. Past medical history: As per history of present illness and as reviewed below otherwise noncontributory. Surgical history: As per history of present illness and as reviewed below otherwise noncontributory. Social history: See social history for further information Family history: As per history of present illness and as reviewed below otherwise noncontributory. Physical exam: General: Patient is alert, oriented, and in no acute distress. He is lying comfortably on exam table. HEENT: Atraumatic, normocephalic, pupils equal and reactive bilaterally, negative for conjunctival pallor or scleral icterus, mucous membranes moist, TMs normal bilaterally, throat clear, neck supple, nontender, trachea midline. No drooling or trismus noted. No meningeal signs. No hot potato voice noted. Lungs: Clear to auscultation, breath sounds equal bilaterally, chest nontender. Heart: S1S2, regular rate and rhythm without overt murmur Abdomen: Patient does have severe tenderness to palpation of the umbilicus with guarding. He does have generalized mild tenderness to the surrounding abdomen. The umbilical hernia is about a 1 cm deficit, it is able to be easily reduced. Otherwise, soft, nondistended. Negative for masses or hepatosplenomegaly. Negative for costovertebral tenderness. Pelvis: Stable nontender. Genitourinary: This was done with consent and a urban anthropologist at the bedside. Patient does have pain to the left testicle with palpation. The testicle is not high riding with no obvious masses. Negative Prehn sign. Cremesenteric reflex intact. Negative for scrotal masses, ulcers, scars. Rectal: Deferred. Skin: Intact, warm, dry. No lesions or rashes noted. Extremities: Atraumatic, moves all extremity is per self without difficulty or deficits, negative for cords or calf pain. Neurovascular unremarkable. Neuro: Awake, alert, oriented. Cranial nerves II through XII unremarkable. Cerebellum unremarkable. Motor and sensory unremarkable throughout. Exam nonfocal. Notes: Patient was in the ED on 12-18-18 per concerns of kidney stones. Prior to that he was in the ED on 12-11-18 and was found to have a kidney stone. Patient states that his complaints that today are not the same as when he was having the kidney stone issues. Labs and imagine results from today pending. Lab work is unremarkable. G&C are send outs; patient aware that these results will not be available for a few days. Scrotal ultrasound is unremarkable. There is a tiny right epididymal cyst. Abdominal CT shows no acute abnormality identified in the abdomen or pelvis. Patient is adamant about narcotic pain medication and states that Toradol and diclofenac are not sufficient at managing his pain. I reviewed all of his testing results and will give him script for diclofenac with referral to his primary care provider for additional pain management. Supportive care measures were reviewed and discussed. Voices understanding and is agreeable to plan of care. Denies any further questions or concerns at this time. Diagnostics: CBC, CMP, UA, gonorrhea and chlamydia, testicular ultrasound, abdominal and pelvic CT Therapeutics: Zofran, Toradol Prescription: Diclofenac Impression: Scrotal Pain Nonspecific abdominal pain Plan: 1. Take medication as prescribed. You can alternate ibuprofen and Tylenol as directed for pain or discomfort. 2. Follow-up with your primary care provider in the next 1-2 days as discussed. 3. Return to the ED as needed and as discussed. Definitive disposition and diagnosis as appropriate pending reevaluation and review of above. abd pain Pain Score (Numeric/FACES): 6 - Related Data Allergies Allergy/AdvReac Type Severity Reaction Status Date / Time Sulfa (Sulfonamide Allergy Rash Verified 01/03/19 10:02 Antibiotics) Home Meds: Home Meds ClonazePAM [KlonoPIN] 1 mg PO Q6HR 09/19/18 [History] Pregabalin [Lyrica] 75 mg PO DAILY 12/11/18 [History] Hydrocodone/Acetaminophen [Hydrocodon-Acetaminophen 5-325] 1 each PO Q4HR PRN [History] Past Medical History - Past Health History Medical/Surgical History: Denies Medical/Surgical History HEENT History: Reports: None Cardiovascular History: Reports: None Respiratory History: Reports: None Gastrointestinal History: Reports: None Genitourinary History: Reports: Renal Calculus Musculoskeletal History: Reports: None Neurological History: Reports: None Psychiatric History: Reports: Anxiety Endocrine/Metabolic History: Reports: None Hematologic History: Reports: None Immunologic History: Reports: None Oncologic (Cancer) History: Reports: None Dermatologic History: Reports: None - Infectious Disease History Infectious Disease History: Reports: None - Past Surgical History Head Surgeries/Procedures: Reports: None HEENT Surgical History: Reports: Tonsillectomy Cardiovascular Surgical History: Reports: None Respiratory Surgical History: Reports: None GI Surgical History: Reports: None Male Surgical History: Reports: None Endocrine Surgical History: Reports: None Neurological Surgical History: Reports: None Musculoskeletal Surgical History: Reports: None Oncologic Surgical History: Reports: None Dermatological Surgical History: Reports: None Social & Family History - Family History Family Medical History: Noncontributory Cardiac: Reports: [place] - Caffeine Use Caffeine Use: Reports: None - Living Situation & Occupation Occupation: Employed ED ROS GENERAL - Review of Systems Review Of Systems: ROS reveals no pertinent complaints other than HPI. ED EXAM, GI/ABD - Physical Exam Exam: See Below (See dictation) Course - Vital Signs Last Recorded V/S: Last Vital Signs Temp 97.3 F 01/03/19 10:00 Pulse 71 01/03/19 12:52 Resp 18 01/03/19 12:52 BP 139/109 H 01/03/19 10:00 Pulse Ox 96 01/03/19 12:52 - Orders/Labs/Meds Orders: Active Orders 24 hr Category Date Time Status Scrotal Duplex Ltd [US] Routine Exams 01/03/19 Taken CHLAMYDIA AND GONORRHEA BY TMA Stat Lab 01/03/19 11:00 Received Sodium Chloride 0.9% [Saline Flush] Med 01/03/19 10:12 Active 10 ml FLUSH ASDIRECTED PRN Sodium Chloride 0.9% [Saline Flush] Med 01/03/19 10:12 Active 2.5 ml FLUSH ASDIRECTED PRN Saline Lock Insert [OM.PC] Stat Oth 01/03/19 10:12 Ordered Medication Orders Sodium Chloride (Saline Flush) 10 ml FLUSH ASDIRECTED PRN PRN Reason: Keep Vein Open Sodium Chloride (Saline Flush) 2.5 ml FLUSH ASDIRECTED PRN PRN Reason: Keep Vein Open Labs: Laboratory Tests 01/03/19 01/03/19 01/03/19 Range/Units 10:36 10:36 12:49 WBC 5.53 (4.0-11.0) K/uL RBC 4.56 (4.50-5.90) M/uL Hgb 13.7 (13.0-17.0) g/dL Hct 40.7 (38.0-50.0) % MCV 89.3 (80.0-98.0) fL MCH 30.0 (27.0-32.0) pg MCHC 33.7 (31.0-37.0) g/dL RDW Std Deviation 40.5 (28.0-62.0) fl RDW Coeff of Angela 13 (11.0-15.0) % Plt Count 251 (150-400) K/uL MPV 10.20 (7.40-12.00) fL Neut % (Auto) 70.5 (48.0-80.0) % Lymph % (Auto) 15.6 L (16.0-40.0) % [place] % (Auto) 11.8 (0.0-15.0) % Eos % (Auto) 1.6 (0.0-7.0) % Baso % (Auto) 0.5 (0.0-1.5) % Neut # (Auto) 3.9 (1.4-5.7) K/uL Lymph # (Auto) 0.9 (0.6-2.4) K/uL [place] # (Auto) 0.7 (0.0-0.8) K/uL Eos # (Auto) 0.1 (0.0-0.7) K/uL Baso # (Auto) 0.0 (0.0-0.1) K/uL Nucleated RBC % 0.0 /100WBC Nucleated RBCs # 0 K/uL Sodium 138 (136-148) mmol/L Potassium 4.7 (3.5-5.1) mmol/L Chloride 104 (98-107) mmol/L Carbon Dioxide 28.3 (21.0-32.0) mmol/L BUN 15 (7.0-18.0) mg/dL Creatinine 0.9 (0.8-1.3) mg/dL Est Cr Clr Drug Dosing 104.69 mL/min Estimated GFR (MDRD) > 60.0 ml/min Glucose 107 H (74-106) mg/dL Calcium 8.5 (8.5-10.1) mg/dL Total Bilirubin 0.6 (0.2-1.0) mg/dL AST 18 (15-37) IU/L ALT 27 (14-63) IU/L Alkaline Phosphatase 59 (46-116) U/L Total Protein 6.8 (6.4-8.2) g/dL Albumin 3.8 (3.4-5.0) g/dL Globulin 3.0 (2.6-4.0) g/dL Albumin/Globulin Ratio 1.3 (0.9-1.6) Urine Color YELLOW Urine Appearance CLEAR Urine pH 8.0 (5.0-8.0) Ur Specific [place] 1.010 (1.001-1.035) Urine Protein NEGATIVE (NEGATIVE) mg/dL Urine Glucose (UA) NEGATIVE (NEGATIVE) mg/dL Urine Ketones NEGATIVE (NEGATIVE) mg/dL Urine Occult Blood NEGATIVE (NEGATIVE) Urine Nitrite NEGATIVE (NEGATIVE) Urine Bilirubin NEGATIVE (NEGATIVE) Urine Urobilinogen 0.2 (<2.0) EU/dL Ur Leukocyte Esterase NEGATIVE (NEGATIVE) Meds: Medications Generic Name Dose Route Start Last Admin Trade Name Tavon PRN Reason Stop Dose Admin Sodium Chloride 10 ml 01/03/19 10:12 Saline Flush FLUSH ASDIRECTED PRN Keep Vein Open Sodium Chloride 2.5 ml 01/03/19 10:12 Saline Flush FLUSH ASDIRECTED PRN Keep Vein Open Discontinued Medications Generic Name Dose Route Start Last Admin Trade Name Tavon PRN Reason Stop Dose Admin Iopamidol 100 ml 01/03/19 12:17 01/03/19 12:18 Isovue Multipack-370 (76%) IVPUSH 01/03/19 12:18 100 ml ONETIME ONE Administration Ketorolac Tromethamine 30 mg 01/03/19 10:11 01/03/19 10:41 Toradol IVPUSH 01/03/19 10:12 30 mg ONETIME ONE Administration Ondansetron HCl 4 mg 01/03/19 10:11 01/03/19 10:41 Zofran IVPUSH 01/03/19 10:12 4 mg ONETIME ONE Administration Departure - Departure Time of Disposition: 13:36 Disposition: Home, Self-Care 01 Clinical Impression: Scrotal pain Abdominal pain Qualifiers: Abdominal location: generalized Qualified Code(s): R10.84 - Generalized abdominal pain - Discharge Information Instructions: Abdominal Pain, Adult, [id number] Referrals: Rigo Morgan MD [Primary Care Provider] - Forms: ED Department Discharge Additional Instructions: The following information is given to patients seen in the emergency department who are being discharged to home. This information is to outline your options for follow-up care. We provide all patients seen in our emergency department with a follow-up referral. The need for follow-up, as well as the timing and circumstances, are variable depending upon the specifics of your emergency department visit. If you don't have a primary care physician on staff, we will provide you with a referral. We always advise you to contact your personal physician following an emergency department visit to inform them of the circumstance of the visit and for follow-up with them and/or the need for any referrals to a consulting specialist. The emergency department will also refer you to a specialist when appropriate. This referral assures that you have the opportunity for follow-up care with a specialist. All of these measure are taken in an effort to provide you with optimal care, which includes your follow-up. Under all circumstances we always encourage you to contact your private physician who remains a resource for coordinating your care. When calling for follow-up care, please make the office aware that this follow-up is from your recent emergency room visit. If for any reason you are refused follow-up, please contact the [facility] Emergency Department at and asked to speak to the emergency department charge nurse. [facility] [address] [place] [id number] [facility] [address] [place] [id number] 1. Take medication as prescribed. You can alternate ibuprofen and Tylenol as directed for pain or discomfort. 2. Follow-up with your primary care provider in the next 1-2 days as discussed. 3. Return to the ED as needed and as discussed. - My Orders Last 24 Hours: My Active Orders 01/03/19 10:12 Sodium Chloride 0.9% [Saline Flush] 10 ml FLUSH ASDIRECTED PRN Sodium Chloride 0.9% [Saline Flush] 2.5 ml FLUSH ASDIRECTED PRN Saline Lock Insert [OM.PC] Stat 01/03/19 11:00 CHLAMYDIA AND GONORRHEA BY TMA Stat - Assessment/Plan Last 24 Hours: My Active Orders 01/03/19 10:12 Sodium Chloride 0.9% [Saline Flush] 10 ml FLUSH ASDIRECTED PRN Sodium Chloride 0.9% [Saline Flush] 2.5 ml FLUSH ASDIRECTED PRN Saline Lock Insert [OM.PC] Stat 01/03/19 11:00 CHLAMYDIA AND GONORRHEA BY TMA Stat
[2019-01-03] MEDS ORDERED: Ondansetron 4 MG/2 ML SDV IVPUSH ONE (10:11)
[2019-01-03] MEDS ORDERED: Ketorolac 30 MG/ML SDV IVPUSH ONE (10:11)
[2019-01-03] MEDS ORDERED: Sodium Chloride 0.9% 10 ML Syringe FLUSH PRN (10:12)
[2019-01-03] MEDS ORDERED: Sodium Chloride 0.9% 2.5 ML Syringe FLUSH PRN (10:12)
[2019-01-03 10:16] VITALS: BP 139/109
[2019-01-03 11:08] LABS: CHLORIDE,CL 104 mmol/L (98-107); SODIUM,NA 138 mmol/L (136-148)
--- NOTE | 2019-01-03 11:33 | US ---
CLINICAL HISTORY: Left testicular pain TECHNIQUE: Crystal scale imaging was performed of the scrotum. In addition color Doppler and spectral Doppler analysis was performed of the testes. FINDINGS: The testes demonstrate normal arterial and venous blood flow on color Doppler and spectral Doppler analysis. The testes have uniform echogenicity with no evidence of a suspicious mass or area of inflammation. The right testis measures 5 x 2.6 x 3.3 in size and the left testis measures 4.7 x 3.2 x 3.3 cm . Tiny right epididymal cyst. The epididymis otherwise appears normal bilaterally. There is no evidence of a hydrocele or varicocele. IMPRESSION: Unremarkable scrotal ultrasound. Tiny right epididymal cyst. Left testis is unremarkable. Dictated by Kristin Rodríguez MD @ Jan 03 2019 11:30AM Signed by Dr. Kristin Rodríguez @ Jan 03 2019 11:32AM
[2019-01-03] MEDS ORDERED: Iopamidol 755 MG/ML 500 ML Multipack Bottle IVPUSH ONE (12:17)
--- NOTE | 2019-01-03 13:08 | CT ---
INDICATION: Acute onset of left groin pain. TECHNIQUE: Contiguous axial images were acquired through the abdomen an d pelvis after the intravenous administration of contrast. Sagittal and coronal reconstructions. COMPARISON: Scrotal ultrasound from 01/03/2019. CTs of the abdomen and pelvis from 12/18/2018 and 12/11/2018. FINDINGS: Lower chest: Normal heart size. No pericardial effusion. Lung bases are clear. No pleural fluid. Abdomen and pelvis: The liver is normal in size and attenuation with no suspicious intrahepatic lesions. No calcified stones within the gallbladder. No gallbladder wall thickening. Normal caliber bile ducts. No appreciable pancreatic mass, inflammatory changes, or ductal dilatation. The spleen is normal in size. Adrenal glands are unremarkable. Kidneys are normal in size and demonstrate normal symmetric enhancement. No suspicious renal lesions or hydronephrosis. Normal abdominal aorta. The stomach is grossly unremarkable. There is no abnormally dilated bowel to suggest obstruction. Normal appendix. Unremarkable urinary bladder. Prostate size is within normal limits. No ventral abdominal wall hernia, or inguinal hernia. Bones: No acute abnormality. IMPRESSION: No acute abnormality is identified in the abdomen or pelvis. Dictated by Enrrique Choe MD @ 01/03/2019 1:07:47 PM Please note that all CT scans at this facility use dose modulation, iterative reconstruction, and/or weight-based dosing when appropriate to reduce radiation dose to as low as reasonably achievable. Dictated by: Enrrique Choe MD @ 01/03/2019 13:07:55 (Electronically Signed)
--- NOTE | 2019-01-04 10:54 | US ---
EXAM DATE: 01/03/19 PATIENT'S AGE: 33 Patient: MAX CRYSTAL Facility: [facility] Site . Site : 1985 Study: US-Pelvis [id number]/4/2019 11:09:28 AM Ordering Physician: Facundo Hinkle Final Report: CLINICAL HISTORY: Left testicular pain TECHNIQUE: Crystal scale imaging was performed of the scrotum. In addition color Doppler and spectral Doppler analysis was performed of the testes. FINDINGS: The testes demonstrate normal arterial and venous blood flow on color Doppler and spectral Doppler analysis. The testes have uniform echogenicity with no evidence of a suspicious mass or area of inflammation. The right testis measures 5 x 2.6 x 3.3 in size and the left testis measures 4.7 x 3.2 x 3.3 cm . Tiny right epididymal cyst. The epididymis otherwise appears normal bilaterally. There is no evidence of a hydrocele or varicocele. IMPRESSION: Unremarkable scrotal ultrasound. Tiny right epididymal cyst. Left testis is unremarkable. Dictated by Kristin Rodríguez MD @ Jan 03 2019 11:30AM Signed by: Kristin Rodríguez MD @01/03/2019 11:32:07 AM (Electronic Signature) Report Signed by Proxy. NATE
== END 2019-01-03 13:48 | disposition home or self-care (01) ==
LOC: MW.ED 09:42
DX: N50.82 Scrotal pain (principal); R10.84 Generalized abdominal pain; Z88.2 Allergy status to sulfonamides; Z79.899 Other long term (current) drug therapy
CPT/HCPCS: 36415; 74177; 76870; 80053; 81003; 85025; 87491; 87591; 93976; 96374; 96375; 99284; J1885; J2405; Q9967

== ENCOUNTER 2019-07-12 09:04 | Observation (INO) | payer MEDICAID, OTHER ==
[2019-07-12] MEDS ORDERED: Aspirin 81 MG Tab.Chew PO ONE (09:09)
[2019-07-12] MEDS ORDERED: Sodium Chloride 0.9% 10 ML Syringe FLUSH PRN (09:09)
--- NOTE | 2019-07-12 09:21 | EDM.PDOC ---
ED HPI GENERAL MEDICAL PROBLEM - General Chief Complaint: Chest Pain Stated Complaint: CHEST PAIN Time Seen by Provider: 07/12/19 09:12 Source of Information: Reports: Patient History Limitations: Reports: No Limitations - History of Present Illness INITIAL COMMENTS - FREE TEXT/NARRATIVE: History of present illness: []Patient started having sharp left-sided chest pain 7:30 this morning and is rated 7/10 with numbness to his left arm. Patient has anxiety and is taking Klonopin. He has a pending a GI endoscopy and a cardiology evaluation. Patient' s father at 45 years of age of a heart attack and states his mother also of heart attack but is unaware of her age. Review of systems: As per history of present illness and below otherwise all systems reviewed and negative. Past medical history: As per history of present illness and as reviewed below otherwise noncontributory. Surgical history: As per history of present illness and as reviewed below otherwise noncontributory. Social history: No reported history of drug or alcohol abuse. Family history: As per history of present illness and as reviewed below otherwise noncontributory. Physical exam: General: Well developed, well nourished in NAD HEENT: Atraumatic, normocephalic, pupils reactive, negative for conjunctival pallor or scleral icterus, mucous membranes moist, throat clear, neck supple, nontender, trachea midline. Lungs: Clear to auscultation, breath sounds equal bilaterally, chest nontender. Heart: S1S2, regular, negative for clicks, rubs, or JVD. Abdomen: NABS, Soft, nondistended, nontender. Negative for masses or hepatosplenomegaly. Negative for costovertebral tenderness. Pelvis: Stable nontender. Genitourinary: Deferred. Rectal: Deferred. Extremities: Atraumatic, negative for cords or calf pain. Neurovascular unremarkable. Neuro: Awake, alert, oriented. Cranial nerves II through XII unremarkable. Cerebellum unremarkable. Motor and sensory unremarkable throughout. Exam nonfocal. Skin:warm and dry Diagnostics: CBC, chemistry, troponin, BMP, chest x-ray, EKG Therapeutics: Aspirin, nitroglycerin, IV fluid ED Course: Labile blood pressures and heart rate Hospitalist accepts patient for observation Impression: Chest pain Prescriptions: None Plan: Admit to hospitalist for further monitoring and workup Definitive disposition and diagnosis as appropriate pending reevaluation and review of above. Left Chest Pain Score (Numeric/FACES): 6 - Related Data Allergies Allergy/AdvReac Type Severity Reaction Status Date / Time Sulfa (Sulfonamide Allergy Rash Verified 07/12/19 09:09 Antibiotics) Home Meds: Home Meds ClonazePAM [KlonoPIN] 1 mg PO Q6HR 09/19/18 [History] Past Medical History - Past Health History Medical/Surgical History: Denies Medical/Surgical History HEENT History: Reports: None Cardiovascular History: Reports: None Respiratory History: Reports: None Gastrointestinal History: Reports: None Genitourinary History: Reports: Renal Calculus Musculoskeletal History: Reports: None Neurological History: Reports: None Psychiatric History: Reports: Anxiety Endocrine/Metabolic History: Reports: None Hematologic History: Reports: None Immunologic History: Reports: None Oncologic (Cancer) History: Reports: None Dermatologic History: Reports: None - Infectious Disease History Infectious Disease History: Reports: None - Past Surgical History Head Surgeries/Procedures: Reports: None HEENT Surgical History: Reports: Tonsillectomy Cardiovascular Surgical History: Reports: None Respiratory Surgical History: Reports: None GI Surgical History: Reports: None Male Surgical History: Reports: None Endocrine Surgical History: Reports: None Neurological Surgical History: Reports: None Musculoskeletal Surgical History: Reports: None Oncologic Surgical History: Reports: None Dermatological Surgical History: Reports: None Social & Family History - Family History Family Medical History: Noncontributory Cardiac: Reports: [place] - Caffeine Use Caffeine Use: Reports: None - Living Situation & Occupation Occupation: Employed ED ROS GENERAL - Review of Systems Review Of Systems: See Below ED EXAM, GENERAL - Physical Exam Exam: See Below Course - Vital Signs Last Recorded V/S: Last Vital Signs Temp 96.8 F 07/12/19 09:09 Pulse 53 L 07/12/19 10:36 Resp 16 07/12/19 10:36 BP 99/59 L 07/12/19 10:36 Pulse Ox 97 07/12/19 10:36 - Orders/Labs/Meds Orders: Active Orders 24 hr Category Date Time Status Cardiac Monitoring [RC] . DIRECTED Care 07/12/19 09:09 Active EKG Documentation Completion [RC] STAT Care 07/12/19 09:09 Active Oxygen Therapy, ED [RC] ASDIRECTED Care 07/12/19 09:09 Active B-TYPE NATRIURETIC PEPTIDE,BNP [CHEM] Stat Lab 07/12/19 09:28 Received Sodium Chloride 0.9% [Normal Saline] 1,000 ml Med 07/12/19 10:00 Active IV STAT Sodium Chloride 0.9% [Saline Flush] Med 07/12/19 09:09 Active 10 ml FLUSH ASDIRECTED PRN Sodium Chloride 0.9% [Saline Flush] Med 07/12/19 09:09 Active 2.5 ml FLUSH ASDIRECTED PRN Saline Lock Insert [OM.PC] Stat Oth 07/12/19 09:09 Ordered Medication Orders Acetaminophen (Tylenol) 650 mg PO Q4H PRN PRN Reason: Pain (Mild 1-3)/fever Clonazepam (Klonopin) 1 mg PO Q6HR JILL Enoxaparin Sodium (Lovenox) 40 mg SUBCUT Q24H JILL Sodium Chloride (Normal Saline) 1,000 mls @ 999 mls/hr IV STAT JILL Last Admin: 07/12/19 09:52 Dose: 999 mls/hr Sodium Chloride (Normal Saline) 1,000 mls @ 999 mls/hr IV STAT JILL Last Admin: 07/12/19 10:39 Dose: 999 mls/hr Oxycodone HCl (Oxycodone) 5 mg PO Q4H PRN PRN Reason: Pain (moderate 4-6) Sodium Chloride (Saline Flush) 10 ml FLUSH ASDIRECTED PRN PRN Reason: Keep Vein Open Last Admin: 07/12/19 09:30 Dose: 10 ml Sodium Chloride (Saline Flush) 2.5 ml FLUSH ASDIRECTED PRN PRN Reason: Keep Vein Open Last Admin: 07/12/19 09:30 Dose: 2.5 ml Labs: Laboratory Tests 07/12/19 07/12/19 Range/Units 09:28 09:28 WBC 4.45 (4.0-11.0) K/uL RBC 4.83 (4.50-5.90) M/uL Hgb 14.9 (13.0-17.0) g/dL Hct 43.5 (38.0-50.0) % MCV 90.1 (80.0-98.0) fL MCH 30.8 (27.0-32.0) pg MCHC 34.3 (31.0-37.0) g/dL RDW Std Deviation 41.2 (28.0-62.0) fl RDW Coeff of Angela 13 (11.0-15.0) % Plt Count 236 (150-400) K/uL MPV 10.30 (7.40-12.00) fL Neut % (Auto) 55.4 (48.0-80.0) % Lymph % (Auto) 25.4 (16.0-40.0) % [place] % (Auto) 16.0 H (0.0-15.0) % Eos % (Auto) 2.5 (0.0-7.0) % Baso % (Auto) 0.7 (0.0-1.5) % Neut # (Auto) 2.5 (1.4-5.7) K/uL Lymph # (Auto) 1.1 (0.6-2.4) K/uL [place] # (Auto) 0.7 (0.0-0.8) K/uL Eos # (Auto) 0.1 (0.0-0.7) K/uL Baso # (Auto) 0.0 (0.0-0.1) K/uL Nucleated RBC % 0.0 /100WBC Nucleated RBCs # 0 K/uL Sodium 140 (136-148) mmol/L Potassium 4.2 (3.5-5.1) mmol/L Chloride 103 (98-107) mmol/L Carbon Dioxide 26.2 (21.0-32.0) mmol/L BUN 18 (7.0-18.0) mg/dL Creatinine 0.9 (0.8-1.3) mg/dL Est Cr Clr Drug Dosing 118.29 mL/min Estimated GFR (MDRD) > 60.0 ml/min Glucose 93 (74-106) mg/dL Calcium 9.3 (8.5-10.1) mg/dL Total Bilirubin 0.9 (0.2-1.0) mg/dL AST 19 (15-37) IU/L ALT 22 (14-63) IU/L Alkaline Phosphatase 57 (46-116) U/L Troponin I < 0.050 (0.000-0.056) ng/mL Total Protein 7.2 (6.4-8.2) g/dL Albumin 4.0 (3.4-5.0) g/dL Globulin 3.2 (2.6-4.0) g/dL Albumin/Globulin Ratio 1.3 (0.9-1.6) Meds: Medications Generic Name Dose Route Start Last Admin Trade Name Tavon PRN Reason Stop Dose Admin Acetaminophen 650 mg 07/12/19 10:34 Tylenol PO Q4H PRN Pain (Mild 1-3)/fever Clonazepam 1 mg 07/12/19 12:00 Klonopin PO Q6HR JILL Enoxaparin Sodium 40 mg 07/12/19 11:00 Lovenox SUBCUT Q24H JILL Sodium Chloride 1,000 mls @ 999 mls/hr 07/12/19 10:00 07/12/19 09:52 Normal Saline IV 999 mls/hr STAT JILL Administration Sodium Chloride 1,000 mls @ 999 mls/hr 07/12/19 10:45 07/12/19 10:39 Normal Saline IV 999 mls/hr STAT JILL Administration Oxycodone HCl 5 mg 07/12/19 10:34 Oxycodone PO Q4H PRN Pain (moderate 4-6) Sodium Chloride 10 ml 07/12/19 09:09 07/12/19 09:30 Saline Flush FLUSH 10 ml ASDIRECTED PRN Administration Keep Vein Open Sodium Chloride 2.5 ml 07/12/19 09:09 07/12/19 09:30 Saline Flush FLUSH 2.5 ml ASDIRECTED PRN Administration Keep Vein Open Discontinued Medications Generic Name Dose Route Start Last Admin Trade Name Tavon PRN Reason Stop Dose Admin Aspirin 324 mg 07/12/19 09:09 07/12/19 09:30 Aspirin PO 07/12/19 09:10 324 mg ONETIME ONE Administration Morphine Sulfate 2 mg 07/12/19 09:45 07/12/19 09:51 Morphine IVPUSH 07/12/19 09:46 2 mg ONETIME ONE Administration Nitroglycerin 0.4 mg 07/12/19 09:09 07/12/19 09:40 Nitrostat SL 0.4 mg Q5M PRN Administration Chest Pain Ondansetron HCl 4 mg 07/12/19 09:45 07/12/19 09:51 Zofran IVPUSH 07/12/19 09:46 4 mg ONETIME ONE Administration Departure - Departure Time of Disposition: 10:53 Disposition: Refer to Observation Condition: Good Clinical Impression: Chest pain Qualifiers: Chest pain type: unspecified Qualified Code(s): R07.9 - Chest pain, unspecified - My Orders Last 24 Hours: My Active Orders 07/12/19 09:09 Cardiac Monitoring [RC] . DIRECTED EKG Documentation Completion [RC] STAT Oxygen Therapy, ED [RC] ASDIRECTED Sodium Chloride 0.9% [Saline Flush] 10 ml FLUSH ASDIRECTED PRN Sodium Chloride 0.9% [Saline Flush] 2.5 ml FLUSH ASDIRECTED PRN Saline Lock Insert [OM.PC] Stat 07/12/19 09:28 B-TYPE NATRIURETIC PEPTIDE,BNP [CHEM] Stat 07/12/19 10:00 Sodium Chloride 0.9% [Normal Saline] 1,000 ml IV STAT - Assessment/Plan Last 24 Hours: My Active Orders 07/12/19 09:09 Cardiac Monitoring [RC] . DIRECTED EKG Documentation Completion [RC] STAT Oxygen Therapy, ED [RC] ASDIRECTED Sodium Chloride 0.9% [Saline Flush] 10 ml FLUSH ASDIRECTED PRN Sodium Chloride 0.9% [Saline Flush] 2.5 ml FLUSH ASDIRECTED PRN Saline Lock Insert [OM.PC] Stat 07/12/19 09:28 B-TYPE NATRIURETIC PEPTIDE,BNP [CHEM] Stat 07/12/19 10:00 Sodium Chloride 0.9% [Normal Saline] 1,000 ml IV STAT
[2019-07-12] MEDS: Nitroglycerin 0.4 MG Tab.SL SL PRN ×3 (09:29→09:40)
[2019-07-12] MEDS: Sodium Chloride 0.9% 2.5 ML Syringe FLUSH PRN ×2 (09:30→12:14)
[2019-07-12] MEDS ORDERED: Ondansetron 4 MG/2 ML SDV IVPUSH ONE (09:45)
[2019-07-12] MEDS ORDERED: Morphine 2 MG/ML Syringe IVPUSH ONE (09:45)
[2019-07-12] MEDS ORDERED: Sodium Chloride 0.9% 1,000 ML IV SCH ×2 (10:00→10:45)
[2019-07-12 10:15] LABS: BLOOD UREA NITROGEN,BUN 18 mg/dL (7.0-18.0); CARBON DIOXIDE,CO2 26.2 mmol/L (21.0-32.0); CHLORIDE,CL 103 mmol/L (98-107); GLUCOSE RANDOM 93 mg/dL (74-106); POTASSIUM,K 4.2 mmol/L (3.5-5.1); SODIUM,NA 140 mmol/L (136-148)
[2019-07-12] MEDS ORDERED: Acetaminophen 325 MG Tab PO PRN (10:34)
--- NOTE | 2019-07-12 10:36 | CR ---
INDICATION: SOB. TECHNIQUE: PA view of the chest, 2 images. COMPARISON: 12/13/2017. FINDINGS: Lungs and pleural spaces clear. Heart, mediastinum and pulmonary vessels normal. No significant osseous abnormality. IMPRESSION: Negative chest. Dictated by Torey Flood MD @ Jul 12 2019 10:31AM Signed by Dr. Torey Flood @ Jul 12 2019 10:34AM
--- NOTE | 2019-07-12 10:48 | PCM.HP.2 ---
H&P History of Present Illness - General Date of Service: 07/12/19 Admit Problem/Dx: Admission Diagnosis/Problem Admission Diagnosis/Problem Chest pain, atypical, anxiety Source of Information: Patient History Limitations: Reports: No Limitations - History of Present Illness Initial Comments - Free Text/Narative: The patient is an otherwise healthy 34-year-old gentleman who presented to the emergency department with acute onset of left-sided chest pain. Patient calls it as being sharp and stabbing and radiating around to his left side. He also admits to having some numbness in his arm. The patient had no specific aggravating or relieving factors. The patient also has denied any associated symptoms such as diaphoresis, dizziness or nausea vomiting. The patient is concerned because both his father and mother had myocardial infarctions at an early age. Patient is only taking medication for anxiety. No other complaints. Onset of Symptoms: Reports: Sudden Duration of Symptoms: Reports: Hour(s): Location: Reports: Chest Quality: Reports: Stabbing Severity: Moderate Improves with: Reports: Medication, Rest Worsens with: Reports: Breathing Context: Reports: Sick Contact Associated Symptoms: Reports: No Other Symptoms Left Chest Pain Score (Numeric/FACES): 6 - Related Data Allergies/Adverse Reactions: Allergies Allergy/AdvReac Type Severity Reaction Status Date / Time Sulfa (Sulfonamide Allergy Rash Verified 07/12/19 09:09 Antibiotics) Home Medications: Home Meds ClonazePAM [KlonoPIN] 1 mg PO Q6HR 09/19/18 [History] Past Medical History - Past Health History Medical/Surgical History: Denies Medical/Surgical History HEENT History: Reports: None Cardiovascular History: Reports: None Respiratory History: Reports: None Gastrointestinal History: Reports: None Genitourinary History: Reports: Renal Calculus Musculoskeletal History: Reports: None Neurological History: Reports: None Psychiatric History: Reports: Anxiety Endocrine/Metabolic History: Reports: None Hematologic History: Reports: None Immunologic History: Reports: None Oncologic (Cancer) History: Reports: None Dermatologic History: Reports: None - Infectious Disease History Infectious Disease History: Reports: None - Past Surgical History Head Surgeries/Procedures: Reports: None HEENT Surgical History: Reports: Tonsillectomy Cardiovascular Surgical History: Reports: None Respiratory Surgical History: Reports: None GI Surgical History: Reports: None Male Surgical History: Reports: None Endocrine Surgical History: Reports: None Neurological Surgical History: Reports: None Musculoskeletal Surgical History: Reports: None Oncologic Surgical History: Reports: None Dermatological Surgical History: Reports: None Social & Family History - Family History Family Medical History: Noncontributory Cardiac: Reports: [place] - Tobacco Use Smoking Status *Q: Never Smoker Second Hand Smoke Exposure: No - Caffeine Use Caffeine Use: Reports: Coffee - Recreational Drug Use Recreational Drug Use: No - Living Situation & Occupation Occupation: Employed H&P Review of Systems - Review of Systems: Review Of Systems: See Below General: Reports: No Symptoms HEENT: Reports: No Symptoms Pulmonary: Reports: No Symptoms Cardiovascular: Reports: Chest Pain, Palpitations Gastrointestinal: Reports: No Symptoms Genitourinary: Reports: No Symptoms Musculoskeletal: Reports: No Symptoms Skin: Reports: No Symptoms Psychiatric: Reports: No Symptoms Neurological: Reports: No Symptoms Hematologic/Lymphatic: Reports: No Symptoms Immunologic: Reports: No Symptoms Exam - Exam Exam: See Below - Vital Signs Vital Signs: Last Vital Signs Temp 36.0 C 07/12/19 09:09 Pulse 53 L 07/12/19 10:36 Resp 16 07/12/19 10:36 BP 99/59 L 07/12/19 10:36 Pulse Ox 97 07/12/19 10:36 Weight: 77.111 kg - Exam Quality Assessment: No: Supplemental Oxygen General: Alert, Oriented, Cooperative HEENT: Conjunctiva Clear, EACs Clear, EOMI, Mucosa Moist & [place], Pupils Equal, PERRLA Neck: Supple, Trachea Midline Lungs: Clear to Auscultation, Normal Respiratory Effort Cardiovascular: Regular Rate, Regular Rhythm GI/Abdominal Exam: Normal Bowel Sounds, Soft, Non-Tender, No Distention Back Exam: Normal Inspection, Full Range of Motion Extremities: Normal Inspection, Normal Range of Motion, No Pedal Edema Skin: Warm, Dry, Intact Neurological: Cranial Nerves Intact, Normal Gait, Normal Speech Neuro Extensive - Mental Status: Alert, Oriented x3, Normal Mood/Affect Psychiatric: Alert, Normal Affect, Normal Mood - Patient Data Lab Results Last 24 hrs: Laboratory Results - last 24 hr 07/12/19 07/12/19 Range/Units 09:28 09:28 WBC 4.45 (4.0-11.0) K/uL RBC 4.83 (4.50-5.90) M/uL Hgb 14.9 (13.0-17.0) g/dL Hct 43.5 (38.0-50.0) % MCV 90.1 (80.0-98.0) fL MCH 30.8 (27.0-32.0) pg MCHC 34.3 (31.0-37.0) g/dL RDW Std Deviation 41.2 (28.0-62.0) fl RDW Coeff of Angela 13 (11.0-15.0) % Plt Count 236 (150-400) K/uL MPV 10.30 (7.40-12.00) fL Neut % (Auto) 55.4 (48.0-80.0) % Lymph % (Auto) 25.4 (16.0-40.0) % [place] % (Auto) 16.0 H (0.0-15.0) % Eos % (Auto) 2.5 (0.0-7.0) % Baso % (Auto) 0.7 (0.0-1.5) % Neut # (Auto) 2.5 (1.4-5.7) K/uL Lymph # (Auto) 1.1 (0.6-2.4) K/uL [place] # (Auto) 0.7 (0.0-0.8) K/uL Eos # (Auto) 0.1 (0.0-0.7) K/uL Baso # (Auto) 0.0 (0.0-0.1) K/uL Nucleated RBC % 0.0 /100WBC Nucleated RBCs # 0 K/uL Sodium 140 (136-148) mmol/L Potassium 4.2 (3.5-5.1) mmol/L Chloride 103 (98-107) mmol/L Carbon Dioxide 26.2 (21.0-32.0) mmol/L BUN 18 (7.0-18.0) mg/dL Creatinine 0.9 (0.8-1.3) mg/dL Est Cr Clr Drug Dosing 118.29 mL/min Estimated GFR (MDRD) > 60.0 ml/min Glucose 93 (74-106) mg/dL Calcium 9.3 (8.5-10.1) mg/dL Total Bilirubin 0.9 (0.2-1.0) mg/dL AST 19 (15-37) IU/L ALT 22 (14-63) IU/L Alkaline Phosphatase 57 (46-116) U/L Troponin I < 0.050 (0.000-0.056) ng/mL Total Protein 7.2 (6.4-8.2) g/dL Albumin 4.0 (3.4-5.0) g/dL Globulin 3.2 (2.6-4.0) g/dL Albumin/Globulin Ratio 1.3 (0.9-1.6) Result Diagrams: 07/12/19 09:28 07/12/19 09:28 - Problem List (1) Atypical chest pain SNOMED Code(s): 724618327 ICD Code: R07.89 - OTHER CHEST PAIN Status: Acute Priority: High Current Visit: Yes (2) Anxiety SNOMED Code(s): 43246444 ICD Code: F41.9 - ANXIETY DISORDER, UNSPECIFIED Status: Chronic Priority : High Current Visit: Yes Problem List Initiated/Reviewed/Updated: Yes Orders Last 24hrs: Active Orders 24 hr Category Date Time Status Patient Status [ADT] Stat ADT 07/12/19 10:13 Active Cardiac Monitoring [RC] . DIRECTED Care 07/12/19 09:09 Active Cardiac Monitoring [RC] CONTINUOUS Care 07/12/19 10:34 Ordered EKG Documentation Completion [RC] AM Care 07/13/19 07:00 Ordered EKG Documentation Completion [RC] STAT Care 07/12/19 09:09 Active Oxygen Therapy [RC] PRN Care 07/12/19 10:34 Ordered Oxygen Therapy, ED [RC] ASDIRECTED Care 07/12/19 09:09 Active Up ad Mar [RC] ASDIRECTED Care 07/12/19 10:34 Ordered VTE/DVT Education [RC] PER UNIT ROUTINE Care 07/12/19 10:34 Ordered Vital Signs [RC] Q4H Care 07/12/19 10:34 Ordered Heart Healthy Diet [DIET] Diet 07/12/19 Lunch Ordered B-TYPE NATRIURETIC PEPTIDE,BNP [CHEM] Stat Lab 07/12/19 09:28 Received BASIC METABOLIC PANEL,BMP [CHEM] AM Lab 07/13/19 05:11 Ordered CBC WITH AUTO DIFF [HEME] AM Lab 07/13/19 05:11 Ordered TROPONIN I [CHEM] Q6H Lab 07/12/19 12:00 Ordered TROPONIN I [CHEM] Q6H Lab 07/12/19 18:00 Ordered Acetaminophen [Tylenol] Med 07/12/19 10:34 Ordered 650 mg PO Q4H PRN ClonazePAM Med 07/12/19 12:00 Ordered 1 mg PO Q6HR Enoxaparin [Lovenox] Med 07/12/19 10:45 Ordered 30 mg SUBCUT Q24H Sodium Chloride 0.9% [Normal Saline] 1,000 ml Med 07/12/19 10:00 Active IV STAT Sodium Chloride 0.9% [Normal Saline] 1,000 ml Med 07/12/19 10:45 Active IV STAT Sodium Chloride 0.9% [Saline Flush] Med 07/12/19 09:09 Active 10 ml FLUSH ASDIRECTED PRN Sodium Chloride 0.9% [Saline Flush] Med 07/12/19 09:09 Active 2.5 ml FLUSH ASDIRECTED PRN oxyCODONE Med 07/12/19 10:34 Ordered 5 mg PO Q4H PRN Saline Lock Insert [OM.PC] Stat Oth 07/12/19 09:09 Ordered Resuscitation Status Routine Resus Stat 07/12/19 10:34 Ordered Medication Orders Clonazepam (Klonopin) 1 mg PO Q6HR JILL Sodium Chloride (Normal Saline) 1,000 mls @ 999 mls/hr IV STAT JILL Last Admin: 07/12/19 09:52 Dose: 999 mls/hr Sodium Chloride (Normal Saline) 1,000 mls @ 999 mls/hr IV STAT JILL Last Admin: 07/12/19 10:39 Dose: 999 mls/hr Sodium Chloride (Saline Flush) 10 ml FLUSH ASDIRECTED PRN PRN Reason: Keep Vein Open Last Admin: 07/12/19 09:30 Dose: 10 ml Sodium Chloride (Saline Flush) 2.5 ml FLUSH ASDIRECTED PRN PRN Reason: Keep Vein Open Last Admin: 07/12/19 09:30 Dose: 2.5 ml Assessment/Plan Comment:: The patient is an otherwise healthy 34-year-old gentleman had been admitted to observation secondary to atypical chest pain. The patient does have a history of myocardial infarction with his family but without personal history of risk factors. I've ordered 2 troponin 6 hours apart. Patient will be kept on telemetry. I've ordered a heart healthy diet. Repeat laboratory studies have been ordered. A repeat EKG is also been ordered for the morning. If everything has returned normal the patient will be discharged likely tomorrow morning. - Mortality Measure Prognosis:: Good
[2019-07-12] MEDS ORDERED: Enoxaparin 40 MG/0.4 ML Syringe SUBCUT SCH (11:00)
[2019-07-12] MEDS: ClonazePAM 1 MG Tab PO SCH ×2 (12:11→18:24)
[2019-07-12] MEDS: oxyCODONE 5 MG Tab PO PRN ×3 (14:04→22:27)
[2019-07-13] MEDS: ClonazePAM 1 MG Tab PO SCH ×2 (00:02→05:51)
[2019-07-13 04:01] VITALS: PULSE 58
[2019-07-13 06:55] LABS: BLOOD UREA NITROGEN,BUN 14 mg/dL (7.0-18.0); CARBON DIOXIDE,CO2 26.7 mmol/L (21.0-32.0); CHLORIDE,CL 106 mmol/L (98-107); GLUCOSE RANDOM 111 mg/dL (74-106); POTASSIUM,K 3.9 mmol/L (3.5-5.1); SODIUM,NA 140 mmol/L (136-148)
--- NOTE | 2019-07-13 07:20 | PCM.DCSUM1 ---
Discharge Summary - Hospital Course HPI Initial Comments: The patient was admitted secondary to atypical chest pain. He has a family history of early coronary artery disease. Diagnosis: Stroke: No - Discharge Data Discharge Date: 07/13/19 Discharge Disposition: Home, Self-Care 01 Condition: Good - Referral to Home Health Primary Care Physician: PCP Unknown - Discharge Diagnosis/Problem(s) (1) Atypical chest pain SNOMED Code(s): 367957789 ICD Code: R07.89 - OTHER CHEST PAIN Status: Resolved Priority: High (2) Anxiety SNOMED Code(s): 46540312 ICD Code: F41.9 - ANXIETY DISORDER, UNSPECIFIED Status: Chronic Priority : High (3) Sleep apnea SNOMED Code(s): 11018686 ICD Code: G47.30 - SLEEP APNEA, UNSPECIFIED Status: Chronic Priority: Medium Qualifiers: Sleep apnea type: unspecified type Qualified Code(s): G47.30 - Sleep apnea , unspecified - Patient Summary/Data Hospital Course: The patient is an otherwise healthy 34-year-old gentleman who presented to the emergency department with acute onset of left-sided chest pain. Patient calls it as being sharp and stabbing and radiating around to his left side. He also admits to having some numbness in his arm. The patient had no specific aggravating or relieving factors. The patient also has denied any associated symptoms such as diaphoresis, dizziness or nausea vomiting. The patient is concerned because both his father and mother had myocardial infarctions at an early age.The patient continued to improve over the short course of hospitalization. He had been tolerating his diet well. The patient also had 3 sets of troponins which were essentially undetectable. The patient also had been kept on telemetry without events noted. By day of discharge the patient was pain free and felt like he could go home. The patient has been recommended to follow-up with a primary care physician for the history of his chest pain as well as sleep study referral secondary to his noted sleep apnea while in hospitalization. He is also to have activity as tolerated. The patient is to have a heart healthy diet as tolerated. Patient has been hemodynamically stable and he is discharged from acute hospitalization with recommendations listed above. - Patient Instructions Diet: Heart Healthy Diet Activity: As Tolerated Notify Provider of: Fever, Increased Pain - Discharge Plan *PRESCRIPTION DRUG MONITORING PROGRAM REVIEWED*: No *COPY OF PRESCRIPTION DRUG MONITORING REPORT IN PATIENT DWAINE: No Home Medications: Home Meds ClonazePAM [KlonoPIN] 1 mg PO Q6HR 09/19/18 [History] Oxygen Therapy Mode: Room Air Patient Handouts: Generalized Anxiety Disorder, Adult, Nonspecific Chest Pain, [id number] Forms: ED Department Discharge Referrals: Lonnie López MD [Resident] - Rafael Ballesteros MD [Physician] - - Discharge Summary/Plan Comment DC Time >30 min.: Yes - General Info Date of Service: 07/13/19 Admission Dx/Problem (Free Text: Admission Diagnosis/Problem Admission Diagnosis/Problem Chest pain, atypical, anxiety Subjective Update: Doing well, patient feels like he can go home. Functional Status: Reports: Pain Controlled - Review of Systems General: Reports: No Symptoms HEENT: Reports: No Symptoms Pulmonary: Reports: No Symptoms Cardiovascular: Reports: No Symptoms Gastrointestinal: Reports: No Symptoms Genitourinary: Reports: No Symptoms Musculoskeletal: Reports: No Symptoms Skin: Reports: No Symptoms Neurological: Reports: No Symptoms Psychiatric: Reports: No Symptoms - Patient Data Vitals - Most Recent: Last Vital Signs Temp 36.8 C 07/13/19 04:00 Pulse 58 L 07/13/19 04:00 Resp 14 07/13/19 04:00 BP 96/65 07/13/19 04:00 Pulse Ox 95 07/13/19 04:00 Orthostatic Blood Pressure [ 108/69 Standing] Orthostatic Blood Pressure [ 105/66 Sitting] Orthostatic Blood Pressure [ 104/71 Supine] Weight - Most Recent: 78.2 kg I&O - Last 24 hours: Intake & Output 07/12/19 07/13/19 07/13/19 22:59 06:59 14:59 Intake Total 1000 Balance 1000 Lab Results - Last 24 hrs: Laboratory Results - last 24 hr 07/12/19 07/12/19 07/12/19 Range/Units 09:28 09:28 09:28 WBC 4.45 (4.0-11.0) K/uL RBC 4.83 (4.50-5.90) M/uL Hgb 14.9 (13.0-17.0) g/dL Hct 43.5 (38.0-50.0) % MCV 90.1 (80.0-98.0) fL MCH 30.8 (27.0-32.0) pg MCHC 34.3 (31.0-37.0) g/dL RDW Std Deviation 41.2 (28.0-62.0) fl RDW Coeff of Angela 13 (11.0-15.0) % Plt Count 236 (150-400) K/uL MPV 10.30 (7.40-12.00) fL Neut % (Auto) 55.4 (48.0-80.0) % Lymph % (Auto) 25.4 (16.0-40.0) % [place] % (Auto) 16.0 H (0.0-15.0) % Eos % (Auto) 2.5 (0.0-7.0) % Baso % (Auto) 0.7 (0.0-1.5) % Neut # (Auto) 2.5 (1.4-5.7) K/uL Lymph # (Auto) 1.1 (0.6-2.4) K/uL [place] # (Auto) 0.7 (0.0-0.8) K/uL Eos # (Auto) 0.1 (0.0-0.7) K/uL Baso # (Auto) 0.0 (0.0-0.1) K/uL Add Manual Diff Neutrophils % (Manual) (48.0-80.0) % Band Neutrophils % % Lymphocytes % (Manual) (16.0-40.0) % Monocytes % (Manual) (0.0-15.0) % Eosinophils % (Manual) (0.0-7.0) % Basophils % (Manual) (0.0-1.5) % Nucleated RBC % 0.0 /100WBC Absolute Seg Neuts (1.4-5.7) Band Neutrophils # Lymphocytes # (Manual) (0.6-2.4) Monocytes # (Manual) (0.0-0.8) Eosinophils # (Manual) (0.0-0.7) Basophils # (Manual) (0.0-0.1) Nucleated RBCs # 0 K/uL Sodium 140 (136-148) mmol/L Potassium 4.2 (3.5-5.1) mmol/L Chloride 103 (98-107) mmol/L Carbon Dioxide 26.2 (21.0-32.0) mmol/L BUN 18 (7.0-18.0) mg/dL Creatinine 0.9 (0.8-1.3) mg/dL Est Cr Clr Drug Dosing 118.29 mL/min Estimated GFR (MDRD) > 60.0 ml/min Glucose 93 (74-106) mg/dL Calcium 9.3 (8.5-10.1) mg/dL Total Bilirubin 0.9 (0.2-1.0) mg/dL AST 19 (15-37) IU/L ALT 22 (14-63) IU/L Alkaline Phosphatase 57 (46-116) U/L Troponin I < 0.050 (0.000-0.056) ng/mL B-Natriuretic Peptide 3 (<100) PG/ML Total Protein 7.2 (6.4-8.2) g/dL Albumin 4.0 (3.4-5.0) g/dL Globulin 3.2 (2.6-4.0) g/dL Albumin/Globulin Ratio 1.3 (0.9-1.6) 07/12/19 07/12/19 07/13/19 Range/Units 12:00 19:27 05:55 WBC 5.54 (4.0-11.0) K/uL RBC 4.52 (4.50-5.90) M/uL Hgb 14.1 (13.0-17.0) g/dL Hct 41.3 (38.0-50.0) % MCV 91.4 (80.0-98.0) fL MCH 31.2 (27.0-32.0) pg MCHC 34.1 (31.0-37.0) g/dL RDW Std Deviation 41.8 (28.0-62.0) fl RDW Coeff of Angela 13 (11.0-15.0) % Plt Count 227 (150-400) K/uL MPV 10.40 (7.40-12.00) fL Neut % (Auto) (48.0-80.0) % Lymph % (Auto) (16.0-40.0) % [place] % (Auto) (0.0-15.0) % Eos % (Auto) (0.0-7.0) % Baso % (Auto) (0.0-1.5) % Neut # (Auto) (1.4-5.7) K/uL Lymph # (Auto) (0.6-2.4) K/uL [place] # (Auto) (0.0-0.8) K/uL Eos # (Auto) (0.0-0.7) K/uL Baso # (Auto) (0.0-0.1) K/uL Add Manual Diff YES Neutrophils % (Manual) 51 (48.0-80.0) % Band Neutrophils % 6 % Lymphocytes % (Manual) 24 (16.0-40.0) % Monocytes % (Manual) 11 (0.0-15.0) % Eosinophils % (Manual) 5 (0.0-7.0) % Basophils % (Manual) 3 H (0.0-1.5) % Nucleated RBC % 0.0 /100WBC Absolute Seg Neuts 2.8 (1.4-5.7) Band Neutrophils # 0.3 Lymphocytes # (Manual) 1.3 (0.6-2.4) Monocytes # (Manual) 0.6 (0.0-0.8) Eosinophils # (Manual) 0.3 (0.0-0.7) Basophils # (Manual) 0.2 H (0.0-0.1) Nucleated RBCs # 0 K/uL Sodium (136-148) mmol/L Potassium (3.5-5.1) mmol/L Chloride (98-107) mmol/L Carbon Dioxide (21.0-32.0) mmol/L BUN (7.0-18.0) mg/dL Creatinine (0.8-1.3) mg/dL Est Cr Clr Drug Dosing mL/min Estimated GFR (MDRD) ml/min Glucose (74-106) mg/dL Calcium (8.5-10.1) mg/dL Total Bilirubin (0.2-1.0) mg/dL AST (15-37) IU/L ALT (14-63) IU/L Alkaline Phosphatase (46-116) U/L Troponin I < 0.050 < 0.050 (0.000-0.056) ng/mL B-Natriuretic Peptide (<100) PG/ML Total Protein (6.4-8.2) g/dL Albumin (3.4-5.0) g/dL Globulin (2.6-4.0) g/dL Albumin/Globulin Ratio (0.9-1.6) 07/13/19 Range/Units 05:55 WBC (4.0-11.0) K/uL RBC (4.50-5.90) M/uL Hgb (13.0-17.0) g/dL Hct (38.0-50.0) % MCV (80.0-98.0) fL MCH (27.0-32.0) pg MCHC (31.0-37.0) g/dL RDW Std Deviation (28.0-62.0) fl RDW Coeff of Angela (11.0-15.0) % Plt Count (150-400) K/uL MPV (7.40-12.00) fL Neut % (Auto) (48.0-80.0) % Lymph % (Auto) (16.0-40.0) % [place] % (Auto) (0.0-15.0) % Eos % (Auto) (0.0-7.0) % Baso % (Auto) (0.0-1.5) % Neut # (Auto) (1.4-5.7) K/uL Lymph # (Auto) (0.6-2.4) K/uL [place] # (Auto) (0.0-0.8) K/uL Eos # (Auto) (0.0-0.7) K/uL Baso # (Auto) (0.0-0.1) K/uL Add Manual Diff Neutrophils % (Manual) (48.0-80.0) % Band Neutrophils % % Lymphocytes % (Manual) (16.0-40.0) % Monocytes % (Manual) (0.0-15.0) % Eosinophils % (Manual) (0.0-7.0) % Basophils % (Manual) (0.0-1.5) % Nucleated RBC % /100WBC Absolute Seg Neuts (1.4-5.7) Band Neutrophils # Lymphocytes # (Manual) (0.6-2.4) Monocytes # (Manual) (0.0-0.8) Eosinophils # (Manual) (0.0-0.7) Basophils # (Manual) (0.0-0.1) Nucleated RBCs # K/uL Sodium 140 (136-148) mmol/L Potassium 3.9 (3.5-5.1) mmol/L Chloride 106 (98-107) mmol/L Carbon Dioxide 26.7 (21.0-32.0) mmol/L BUN 14 (7.0-18.0) mg/dL Creatinine 0.9 (0.8-1.3) mg/dL Est Cr Clr Drug Dosing 118.29 mL/min Estimated GFR (MDRD) > 60.0 ml/min Glucose 111 H (74-106) mg/dL Calcium 8.0 L (8.5-10.1) mg/dL Total Bilirubin (0.2-1.0) mg/dL AST (15-37) IU/L ALT (14-63) IU/L Alkaline Phosphatase (46-116) U/L Troponin I (0.000-0.056) ng/mL B-Natriuretic Peptide (<100) PG/ML Total Protein (6.4-8.2) g/dL Albumin (3.4-5.0) g/dL Globulin (2.6-4.0) g/dL Albumin/Globulin Ratio (0.9-1.6) Med Orders - Current: Current Medications Acetaminophen (Tylenol) 650 mg PO Q4H PRN PRN Reason: Pain (Mild 1-3)/fever Clonazepam (Klonopin) 1 mg PO Q6HR [facility] Last Admin: 07/13/19 05:51 Dose: 1 mg Enoxaparin Sodium (Lovenox) 40 mg SUBCUT Q24H [facility] Last Admin: 07/12/19 12:10 Dose: 40 mg Sodium Chloride (Normal Saline) 1,000 mls @ 999 mls/hr IV STAT [facility] Last Admin: 07/12/19 09:52 Dose: 999 mls/hr Sodium Chloride (Normal Saline) 1,000 mls @ 999 mls/hr IV STAT [facility] Last Admin: 07/12/19 10:39 Dose: 999 mls/hr Oxycodone HCl (Oxycodone) 5 mg PO Q4H PRN PRN Reason: Pain (moderate 4-6) Last Admin: 07/12/19 22:27 Dose: 5 mg Sodium Chloride (Saline Flush) 10 ml FLUSH ASDIRECTED PRN PRN Reason: Keep Vein Open Last Admin: 07/12/19 09:30 Dose: 10 ml Sodium Chloride (Saline Flush) 2.5 ml FLUSH ASDIRECTED PRN PRN Reason: Keep Vein Open Last Admin: 07/12/19 12:14 Dose: 2.5 ml Discontinued Medications Aspirin (Aspirin) 324 mg PO ONETIME ONE Stop: 07/12/19 09:10 Last Admin: 07/12/19 09:30 Dose: 324 mg Morphine Sulfate (Morphine) 2 mg IVPUSH ONETIME ONE Stop: 07/12/19 09:46 Last Admin: 07/12/19 09:51 Dose: 2 mg Nitroglycerin (Nitrostat) 0.4 mg SL Q5M PRN PRN Reason: Chest Pain Last Admin: 07/12/19 09:40 Dose: 0.4 mg Ondansetron HCl (Zofran) 4 mg IVPUSH ONETIME ONE Stop: 07/12/19 09:46 Last Admin: 07/12/19 09:51 Dose: 4 mg - Exam Quality Assessment: Denies: Supplemental Oxygen General: Reports: Alert, Oriented, Cooperative, No Acute Distress HEENT: Reports: Pupils Equal, Pupils Reactive, EOMI, Mucous Membr. Moist/[place] Neck: Reports: Supple, Trachea Midline Lungs: Reports: Clear to Auscultation, Normal Respiratory Effort Cardiovascular: Reports: Regular Rate, Regular Rhythm, No Murmurs GI/Abdominal Exam: Normal Bowel Sounds, Soft, Non-Tender, No Distention. No: Guarding, Rigid, Rebound Back Exam: Reports: Normal Inspection, Full Range of Motion Extremities: Normal Inspection, Normal Range of Motion, No Pedal Edema Skin: Reports: Warm, Dry, Intact Neurological: Reports: No New Focal Deficit, Normal Gait, Normal Speech Psy/Mental Status: Reports: Alert, Normal Affect, Normal Mood
[2019-07-13 08:03] VITALS: BP 91/55
== END 2019-07-13 09:30 | disposition home or self-care (01) ==
LOC: MW.ED 09:04 → MW.MS 10:13 → UNDOADMOB 10:27 → MW.ICU 10:43
PROVIDERS: ADMIT Internal Medicine; ATTEND Internal Medicine
DX: R07.89 Other chest pain (principal); F41.9 Anxiety disorder, unspecified; G47.30 Sleep apnea, unspecified; I25.2 Old myocardial infarction; Z79.899 Other long term (current) drug therapy; Z88.2 Allergy status to sulfonamides
CPT/HCPCS: 36415; 71045; 80048; 80053; 83880; 84484; 85025; 93005; 96361; 96372; 96374; 96375; 99285; A9270; G0378; J1650; J2270; J2405; J7040

== ENCOUNTER 2019-10-13 23:19 | Emergency (ER) | payer MEDICAID ==
[2019-10-13 23:29] VITALS: BP 149/87; PULSE 99
[2019-10-13] MEDS ORDERED: Sodium Chloride 0.9% 10 ML Syringe FLUSH PRN (23:35)
[2019-10-13] MEDS ORDERED: Ketorolac 30 MG/ML SDV IVPUSH ONE (23:35)
[2019-10-13] MEDS ORDERED: Sodium Chloride 0.9% 2.5 ML Syringe FLUSH PRN (23:35)
[2019-10-13] MEDS ORDERED: Sodium Chloride 0.9% 1,000 ML IV ONE (23:35)
--- NOTE | 2019-10-13 23:41 | EDM.PDOC ---
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 He has used ibuprofen and Tylenol for his fevers which it has responded to and his cough is only mild. He says there is grade discomfort in his throat and pain with swallowing but he has been hydrating and eating popsicles but not eating as much food. He says he feels run down and has generalized body aches but no abdominal pain. He has had some loose stools and an episode of vomiting. He has ill contacts and his household. He has no chest pain or shortness of breath. The patient has a history of a tonsillectomy in the past Review of systems: As per history of present illness and below otherwise all systems reviewed and negative. Past medical history: As per history of present illness and as reviewed below otherwise noncontributory. Surgical history: As per history of present illness and as reviewed below otherwise noncontributory. Social history: No reported history of drug or alcohol abuse. Family history: As per history of present illness and as reviewed below otherwise noncontributory. Physical exam: General: well Developed well-nourished man who is nontoxic and speaks clearly in the ED without breathlessness coarse or muffled voice. Vital signs are noted by me HEENT: Atraumatic, normocephalic, pupils reactive, negative for conjunctival pallor or scleral icterus, mucous membranes moist, throat clear of exudates and there is only mild posterior oropharyngeal erythema without uvula deviation or swelling, there is no cervical adenopathy or nuchal rigidity, neck supple, nontender, trachea midline. Lungs: Clear to auscultation, breath sounds equal bilaterally, chest nontender. No wheezing stridor or work of breathing Heart: S1S2, regular rate and rhythm no overt murmurs Abdomen: Soft, nondistended, nontender. Negative for masses or hepatosplenomegaly. Negative for costovertebral tenderness. Pelvis: Deferred Genitourinary: Deferred. Rectal: Deferred. Extremities: Atraumatic, negative for cords or calf pain. Neurovascular unremarkable. Neuro: Awake, alert, oriented. Cranial nerves II through XII unremarkable. Cerebellum unremarkable. Motor and sensory unremarkable throughout. Exam nonfocal. Diagnostics: CBC lactate influenza rapid strep chest x-ray Therapeutics: IV fluids Toradol Impression: Generalized body aches/pharyngitis/URI Definitive disposition and diagnosis as appropriate pending reevaluation and review of above. throat Pain Score (Numeric/FACES): 8 - Related Data Allergies Allergy/AdvReac Type Severity Reaction Status Date / Time Sulfa (Sulfonamide Allergy Rash Verified 10/13/19 23:36 Antibiotics) Home Meds: Home Meds ClonazePAM [KlonoPIN] 1 mg PO Q6HR 09/19/18 [History] Past Medical History - Past Health History Medical/Surgical History: Denies Medical/Surgical History HEENT History: Reports: None Cardiovascular History: Reports: None Respiratory History: Reports: None Gastrointestinal History: Reports: None Genitourinary History: Reports: Renal Calculus Musculoskeletal History: Reports: None Neurological History: Reports: None Psychiatric History: Reports: Anxiety Endocrine/Metabolic History: Reports: None Hematologic History: Reports: None Immunologic History: Reports: None Oncologic (Cancer) History: Reports: None Dermatologic History: Reports: None - Infectious Disease History Infectious Disease History: Reports: None - Past Surgical History Head Surgeries/Procedures: Reports: None HEENT Surgical History: Reports: Tonsillectomy Cardiovascular Surgical History: Reports: None Respiratory Surgical History: Reports: None GI Surgical History: Reports: None Male Surgical History: Reports: None Endocrine Surgical History: Reports: None Neurological Surgical History: Reports: None Musculoskeletal Surgical History: Reports: None Oncologic Surgical History: Reports: None Dermatological Surgical History: Reports: None Social & Family History - Family History Family Medical History: Noncontributory Cardiac: Reports: [place] - Caffeine Use Caffeine Use: Reports: None - Living Situation & Occupation Occupation: Employed ED ROS GENERAL - Review of Systems Review Of Systems: Comprehensive ROS is negative, except as noted in HPI. ED EXAM, GENERAL - Physical Exam Exam: See Below (See dictation) Course - Vital Signs Last Recorded V/S: Last Vital Signs Temp 37.7 C 12/12/19 23:25 Pulse 99 10/13/19 23:25 Resp 18 10/13/19 23:25 BP 149/87 H 10/13/19 23:25 Pulse Ox 99 10/13/19 23:25 - Orders/Labs/Meds Orders: Active Orders 24 hr Category Date Time Status CULTURE STREP A CONFIRMATION [] Stat Lab 10/13/19 23:37 Results STREP SCRN A RAPID W CULT CONF [] Stat Lab 10/13/19 23:37 Results Sodium Chloride 0.9% [Normal Saline] 1,000 ml Med 10/13/19 23:35 Active IV STAT Sodium Chloride 0.9% [Saline Flush] Med 10/13/19 23:35 Active 10 ml FLUSH ASDIRECTED PRN Sodium Chloride 0.9% [Saline Flush] Med 10/13/19 23:35 Active 2.5 ml FLUSH ASDIRECTED PRN Saline Lock Insert [OM.PC] Stat Oth 10/13/19 23:35 Ordered Medication Orders Sodium Chloride (Normal Saline) 1,000 mls @ 999 mls/hr IV STAT ONE Stop: 10/14/19 00:35 Last Admin: 10/13/19 23:45 Dose: 999 mls/hr Sodium Chloride (Saline Flush) 10 ml FLUSH ASDIRECTED PRN PRN Reason: Keep Vein Open Last Admin: 10/13/19 23:52 Dose: 10 ml Sodium Chloride (Saline Flush) 2.5 ml FLUSH ASDIRECTED PRN PRN Reason: Keep Vein Open Last Admin: 10/13/19 23:51 Dose: 2.5 ml Labs: Laboratory Tests 10/13/19 10/13/19 Range/Units 23:45 23:45 WBC 13.37 H (4.0-11.0) K/uL RBC 5.09 (4.50-5.90) M/uL Hgb 15.9 (13.0-17.0) g/dL Hct 45.7 (38.0-50.0) % MCV 89.8 (80.0-98.0) fL MCH 31.2 (27.0-32.0) pg MCHC 34.8 (31.0-37.0) g/dL RDW Std Deviation 40.2 (28.0-62.0) fl RDW Coeff of Angela 12 (11.0-15.0) % Plt Count 237 (150-400) K/uL MPV 10.50 (7.40-12.00) fL Neut % (Auto) 81.8 H (48.0-80.0) % Lymph % (Auto) 6.6 L (16.0-40.0) % [place] % (Auto) 11.3 (0.0-15.0) % Eos % (Auto) 0.2 (0.0-7.0) % Baso % (Auto) 0.1 (0.0-1.5) % Neut # (Auto) 10.9 H (1.4-5.7) K/uL Lymph # (Auto) 0.9 (0.6-2.4) K/uL [place] # (Auto) 1.5 H (0.0-0.8) K/uL Eos # (Auto) 0.0 (0.0-0.7) K/uL Baso # (Auto) 0.0 (0.0-0.1) K/uL Nucleated RBC % 0.0 /100WBC Nucleated RBCs # 0 K/uL Lactate 1.0 (0.20-2.00) mmol/L Meds: Medications Generic Name Dose Route Start Last Admin Trade Name Freq PRN Reason Stop Dose Admin Sodium Chloride 1,000 mls @ 999 mls/hr 10/13/19 23:35 10/13/19 23:45 Normal Saline IV 10/14/19 00:35 999 mls/hr STAT ONE Administration Sodium Chloride 10 ml 10/13/19 23:35 10/13/19 23:52 Saline Flush FLUSH 10 ml ASDIRECTED PRN Administration Keep Vein Open Sodium Chloride 2.5 ml 10/13/19 23:35 10/13/19 23:51 Saline Flush FLUSH 2.5 ml ASDIRECTED PRN Administration Keep Vein Open Discontinued Medications Generic Name Dose Route Start Last Admin Trade Name Freq PRN Reason Stop Dose Admin Ketorolac Tromethamine 30 mg 10/13/19 23:35 10/13/19 23:45 Toradol IVPUSH 10/13/19 23:36 30 mg ONETIME ONE Administration Departure - Departure Time of Disposition: 00:14 Disposition: Home, Self-Care 01 Condition: Good Clinical Impression: URI, acute, Generalized body aches Pharyngitis Qualifiers: Pharyngitis/tonsillitis etiology: unspecified etiology Qualified Code(s): J02.9 - Acute pharyngitis, unspecified - Discharge Information Referrals: Rigo Morgan MD [Primary Care Provider] - Forms: ED Department Discharge Additional Instructions: The following information is given to patients seen in the emergency department who are being discharged to home. This information is to outline your options for follow-up care. We provide all patients seen in our emergency department with a follow-up referral. The need for follow-up, as well as the timing and circumstances, are variable depending upon the specifics of your emergency department visit. If you don't have a primary care physician on staff, we will provide you with a referral. We always advise you to contact your personal physician following an emergency department visit to inform them of the circumstance of the visit and for follow-up with them and/or the need for any referrals to a consulting specialist. The emergency department will also refer you to a specialist when appropriate. This referral assures that you have the opportunity for followup care with a specialist. All of these measure are taken in an effort to provide you with optimal care, which includes your followup. Under all circumstances we always encourage you to contact your private physician who remains a resource for coordinating your care. When calling for followup care, please make the office aware that this follow-up is from your recent emergency room visit. If for any reason you are refused follow-up, please contact the [facility] emergency department at and ask to speak to the emergency department charge nurse. [facility] Primary care- Internal Medicine and Family [address] [address] Continue to monitor symptoms and schedule follow-up in our clinic with one of our providers or with your provider for further reevaluation and care. Continue to use [id number] medications such as Tylenol and ibuprofen for fever management and aches and pains. Push hydration and return to ER as needed as discussed Sepsis Event Note - Evaluation Sepsis Screening Result: Possible Sepsis Risk - Focused Exam Vital Signs: Vital Signs Temp Pulse Resp BP Pulse Ox 10/13/19 23:25 37.7 C 99 18 149/87 H 99 Date Exam was Performed: 10/14/19 Time Exam was Performed: 00:14 - My Orders Last 24 Hours: My Active Orders 10/13/19 23:35 Sodium Chloride 0.9% [Normal Saline] 1,000 ml IV STAT Sodium Chloride 0.9% [Saline Flush] 10 ml FLUSH ASDIRECTED PRN Sodium Chloride 0.9% [Saline Flush] 2.5 ml FLUSH ASDIRECTED PRN Saline Lock Insert [OM.PC] Stat 10/13/19 23:37 CULTURE STREP A CONFIRMATION [RM] Stat STREP SCRN A RAPID W CULT CONF [RM] Stat - Assessment/Plan Last 24 Hours: My Active Orders 10/13/19 23:35 Sodium Chloride 0.9% [Normal Saline] 1,000 ml IV STAT Sodium Chloride 0.9% [Saline Flush] 10 ml FLUSH ASDIRECTED PRN Sodium Chloride 0.9% [Saline Flush] 2.5 ml FLUSH ASDIRECTED PRN Saline Lock Insert [OM.PC] Stat 10/13/19 23:37 CULTURE STREP A CONFIRMATION [RM] Stat STREP SCRN A RAPID W CULT CONF [RM] Stat
--- NOTE | 2019-10-14 00:08 | CR ---
INDICATION: Chest pain and shortness of breath. COMPARISON: 12/13/2017 FINDINGS: PA and lateral views of the chest were obtained. The lungs remain clear. No focal or diffuse infiltrates are present. The heart remains normal in size. The mediastinum is normal in appearance. The osseous structures are normal in appearance for the patient`s age. IMPRESSION: Normal chest two views. Dictated by Rivas Muñoz MD @ Oct 14 2019 12:05AM Signed by Dr. Rivas Muñoz @ Oct 14 2019 12:06AM
== END 2019-10-14 00:48 | disposition home or self-care (01) ==
LOC: MW.ED 23:19
DX: J02.9 Acute pharyngitis, unspecified (principal); M79.10 Myalgia, unspecified site; F41.9 Anxiety disorder, unspecified; Z88.2 Allergy status to sulfonamides
CPT/HCPCS: 36415; 71046; 83605; 85025; 87081; 87804; 87880; 96361; 96374; 99284; J1885; J7030

== ENCOUNTER 2019-11-02 14:20 | Emergency (ER) | payer MEDICAID ==
[2019-11-02] MEDS ORDERED: Sodium Chloride 0.9% 2.5 ML Syringe FLUSH PRN (14:49)
[2019-11-02] MEDS ORDERED: Sodium Chloride 0.9% 10 ML Syringe FLUSH PRN (14:49)
[2019-11-02] MEDS ORDERED: Sodium Chloride 0.9% 1,000 ML IV ONE (14:49)
--- NOTE | 2019-11-02 14:50 | EDM.PDOC ---
ED HPI GENERAL MEDICAL PROBLEM - General Chief Complaint: General Stated Complaint: FLU Time Seen by Provider: 11/02/19 14:50 Source of Information: Reports: Patient History Limitations: Reports: No Limitations - History of Present Illness INITIAL COMMENTS - FREE TEXT/NARRATIVE: HISTORY AND PHYSICAL: History of present illness: Patient is a 34-year-old male presents to the ED with complaint of body aches. Patient was diagnosed with influenza 2 days ago and is taking Tamiflu. He states he is not feeling any better. He reports symptoms started 3 days ago and his kids are getting better and he is not. He reports fevers, chills, body aches , cough, sore throat. He denies nausea, vomiting, diarrhea, shortness of breath , abdominal pain. He denies significant past medical history. Review of systems: As per history of present illness and below otherwise all systems reviewed and negative. Past medical history: As per history of present illness and as reviewed below otherwise noncontributory. Surgical history: As per history of present illness and as reviewed below otherwise noncontributory. Social history: No reported history of drug or alcohol abuse. Family history: As per history of present illness and as reviewed below otherwise noncontributory. Physical exam: General: Patient sitting comfortably in no acute distress and nontoxic appearing HEENT: Atraumatic, normocephalic, pupils reactive, negative for conjunctival pallor or scleral icterus, mucous membranes moist, throat clear, neck supple, nontender, trachea midline. No meningeal signs. Lungs: Clear to auscultation, breath sounds equal bilaterally, chest nontender. Heart: S1S2, regular, negative for clicks, rubs, or overt murmur. Abdomen: Soft, nondistended, nontender. Negative for masses or hepatosplenomegaly. Negative for costovertebral tenderness. No rigidity, rebound , guarding. Pelvis: Stable nontender. Genitourinary: Deferred. Rectal: Deferred. Extremities: Atraumatic, negative for cords or calf pain. Neurovascular unremarkable. Neuro: Awake, alert, oriented. Cranial nerves II through XII unremarkable. Cerebellum unremarkable. Motor and sensory unremarkable throughout. Exam nonfocal. Notes: Diagnostics: CBC, CMP CXR Therapeutics: 1L NS IV Motrin PO Prescriptions: none Impression: Influenza Definitive disposition and diagnosis as appropriate pending reevaluation and review of above. Generalized Pain Score (Numeric/FACES): 7 - Related Data Allergies Allergy/AdvReac Type Severity Reaction Status Date / Time Sulfa (Sulfonamide Allergy Rash Verified 11/02/19 14:31 Antibiotics) Home Meds: Home Meds ClonazePAM [KlonoPIN] 1 mg PO Q6HR 09/19/18 [History] Oseltamivir [Tamiflu] mg PO DAILY 11/02/19 [History] Past Medical History - Past Health History Medical/Surgical History: Denies Medical/Surgical History HEENT History: Reports: None Cardiovascular History: Reports: None Respiratory History: Reports: None Gastrointestinal History: Reports: None Genitourinary History: Reports: Renal Calculus Musculoskeletal History: Reports: None Neurological History: Reports: None Psychiatric History: Reports: Anxiety Endocrine/Metabolic History: Reports: None Hematologic History: Reports: None Immunologic History: Reports: None Oncologic (Cancer) History: Reports: None Dermatologic History: Reports: None - Infectious Disease History Infectious Disease History: Reports: Chicken Pox - Past Surgical History Head Surgeries/Procedures: Reports: None HEENT Surgical History: Reports: Tonsillectomy Cardiovascular Surgical History: Reports: None Respiratory Surgical History: Reports: None GI Surgical History: Reports: None Male Surgical History: Reports: None Endocrine Surgical History: Reports: None Neurological Surgical History: Reports: None Musculoskeletal Surgical History: Reports: None Oncologic Surgical History: Reports: None Dermatological Surgical History: Reports: None Social & Family History - Family History Family Medical History: Noncontributory Cardiac: Reports: MT - Tobacco Use Smoking Status *Q: Former Smoker Used Tobacco, but Quit: Yes Month/Year Tobacco Last Used: 2015 - Caffeine Use Caffeine Use: Reports: Coffee - Recreational Drug Use Recreational Drug Use: No - Living Situation & Occupation Occupation: Employed ED ROS GENERAL - Review of Systems Review Of Systems: Comprehensive ROS is negative, except as noted in HPI. ED EXAM, GENERAL - Physical Exam Exam: See Below (see dictation) Course - Vital Signs Last Recorded V/S: Last Vital Signs Temp 101 F H 11/02/19 15:42 Pulse 87 11/02/19 15:42 Resp 20 11/02/19 15:42 BP 125/72 11/02/19 15:42 Pulse Ox 100 11/02/19 15:42 - Orders/Labs/Meds Orders: Active Orders 24 hr Category Date Time Status Ibuprofen [Motrin] Med 11/02/19 16:01 Once 800 mg PO ONETIME ONE Sodium Chloride 0.9% [Saline Flush] Med 11/02/19 14:49 Active 10 ml FLUSH ASDIRECTED PRN Sodium Chloride 0.9% [Saline Flush] Med 11/02/19 14:49 Active 2.5 ml FLUSH ASDIRECTED PRN Saline Lock Insert [OM.PC] Stat Oth 11/02/19 14:49 Ordered Medication Orders Sodium Chloride (Saline Flush) 10 ml FLUSH ASDIRECTED PRN PRN Reason: Keep Vein Open Last Admin: 11/02/19 15:06 Dose: 10 ml Sodium Chloride (Saline Flush) 2.5 ml FLUSH ASDIRECTED PRN PRN Reason: Keep Vein Open Last Admin: 11/02/19 15:06 Dose: 2.5 ml Labs: Laboratory Tests 11/02/19 11/02/19 Range/Units 15:26 15:26 WBC 3.98 L (4.0-11.0) K/uL RBC 4.41 L (4.50-5.90) M/uL Hgb 13.5 (13.0-17.0) g/dL Hct 39.4 (38.0-50.0) % MCV 89.3 (80.0-98.0) fL MCH 30.6 (27.0-32.0) pg MCHC 34.3 (31.0-37.0) g/dL RDW Std Deviation 39.3 (28.0-62.0) fl RDW Coeff of Angela 12 (11.0-15.0) % Plt Count 265 (150-400) K/uL MPV 9.80 (7.40-12.00) fL Neut % (Auto) 65.3 (48.0-80.0) % Lymph % (Auto) 24.4 (16.0-40.0) % Dewitt % (Auto) 9.3 (0.0-15.0) % Eos % (Auto) 0.5 (0.0-7.0) % Baso % (Auto) 0.5 (0.0-1.5) % Neut # (Auto) 2.6 (1.4-5.7) K/uL Lymph # (Auto) 1.0 (0.6-2.4) K/uL Dewitt # (Auto) 0.4 (0.0-0.8) K/uL Eos # (Auto) 0.0 (0.0-0.7) K/uL Baso # (Auto) 0.0 (0.0-0.1) K/uL Nucleated RBC % 0.0 /100WBC Nucleated RBCs # 0 K/uL Sodium 138 (136-148) mmol/L Potassium 4.2 (3.5-5.1) mmol/L Chloride 103 (98-107) mmol/L Carbon Dioxide 27.0 (21.0-32.0) mmol/L BUN 12 (7.0-18.0) mg/dL Creatinine 1.1 (0.8-1.3) mg/dL Est Cr Clr Drug Dosing 96.78 mL/min Estimated GFR (MDRD) > 60.0 ml/min Glucose 106 (74-106) mg/dL Calcium 8.4 L (8.5-10.1) mg/dL Total Bilirubin 0.4 (0.2-1.0) mg/dL AST 11 L (15-37) IU/L ALT 20 (14-63) IU/L Alkaline Phosphatase 71 (46-116) U/L Total Protein 8.0 (6.4-8.2) g/dL Albumin 3.8 (3.4-5.0) g/dL Globulin 4.2 H (2.6-4.0) g/dL Albumin/Globulin Ratio 0.9 (0.9-1.6) Meds: Medications Generic Name Dose Route Start Last Admin Trade Name Freq PRN Reason Stop Dose Admin Sodium Chloride 10 ml 11/02/19 14:49 11/02/19 15:06 Saline Flush FLUSH 10 ml ASDIRECTED PRN Administration Keep Vein Open Sodium Chloride 2.5 ml 11/02/19 14:49 11/02/19 15:06 Saline Flush FLUSH 2.5 ml ASDIRECTED PRN Administration Keep Vein Open Discontinued Medications Generic Name Dose Route Start Last Admin Trade Name Freq PRN Reason Stop Dose Admin Acetaminophen 1,000 mg 11/02/19 15:52 Tylenol Extra Strength PO 11/02/19 15:53 ONETIME ONE Sodium Chloride 1,000 mls @ 999 mls/hr 11/02/19 14:49 11/02/19 15:05 Normal Saline IV 11/02/19 15:49 999 mls/hr STAT ONE Administration Departure - Departure Time of Disposition: 15:59 Disposition: Home, Self-Care 01 Condition: Good Clinical Impression: Influenza - Discharge Information Referrals: Rigo Morgan MD [Primary Care Provider] - Forms: ED Department Discharge Additional Instructions: The following information is given to patients seen in the emergency department who are being discharged to home. This information is to outline your options for follow-up care. We provide all patients seen in our emergency department with a follow-up referral. The need for follow-up, as well as the timing and circumstances, are variable depending upon the specifics of your emergency department visit. If you don't have a primary care physician on staff, we will provide you with a referral. We always advise you to contact your personal physician following an emergency department visit to inform them of the circumstance of the visit and for follow-up with them and/or the need for any referrals to a consulting specialist. The emergency department will also refer you to a specialist when appropriate. This referral assures that you have the opportunity for follow-up care with a specialist. All of these measure are taken in an effort to provide you with optimal care, which includes your follow-up. Under all circumstances we always encourage you to contact your private physician who remains a resource for coordinating your care. When calling for follow-up care, please make the office aware that this follow-up is from your recent emergency room visit. If for any reason you are refused follow-up, please contact the [facility] Emergency Department at and asked to speak to the emergency department charge nurse. [facility] Primary Care [address] [place] [id number] [id number] Continue tamiflu as presribed Alternate tylenol and motrin as needed Follow up with primary care provider Sepsis Event Note - Evaluation Sepsis Screening Result: No Definite Risk - Focused Exam Vital Signs: Vital Signs Temp Pulse Resp BP Pulse Ox 11/02/19 15:42 101 F H 87 20 125/72 100 11/02/19 14:33 100.0 F 95 18 139/77 98 Date Exam was Performed: 11/02/19 Time Exam was Performed: 16:01 - My Orders Last 24 Hours: My Active Orders 11/02/19 14:49 Sodium Chloride 0.9% [Saline Flush] 10 ml FLUSH ASDIRECTED PRN Sodium Chloride 0.9% [Saline Flush] 2.5 ml FLUSH ASDIRECTED PRN Saline Lock Insert [OM.PC] Stat 11/02/19 16:01 Ibuprofen [Motrin] 800 mg PO ONETIME ONE - Assessment/Plan Last 24 Hours: My Active Orders 11/02/19 14:49 Sodium Chloride 0.9% [Saline Flush] 10 ml FLUSH ASDIRECTED PRN Sodium Chloride 0.9% [Saline Flush] 2.5 ml FLUSH ASDIRECTED PRN Saline Lock Insert [OM.PC] Stat 11/02/19 16:01 Ibuprofen [Motrin] 800 mg PO ONETIME ONE
--- NOTE | 2019-11-02 15:13 | CR ---
INDICATION: Pain. Shortness of breath. TECHNIQUE: PA and lateral chest x-ray. FINDINGS: Mild peribronchial cuffing in the left lateral hilum consistent bronchial inflammation. Heart size normal. Lungs clear without infiltrate or consolidation. Remainder negative. Dictated by Rey Luis MD @ Nov 02 2019 3:09PM Signed by Dr. Rey Luis @ Nov 02 2019 3:11PM
[2019-11-02 15:42] VITALS: PULSE 87
[2019-11-02 15:51] LABS: BLOOD UREA NITROGEN,BUN 12 mg/dL (7.0-18.0); CHLORIDE,CL 103 mmol/L (98-107); GLUCOSE RANDOM 106 mg/dL (74-106); POTASSIUM,K 4.2 mmol/L (3.5-5.1); SODIUM,NA 138 mmol/L (136-148)
[2019-11-02] MEDS ORDERED: Acetaminophen 500 MG Tab PO ONE (15:52)
[2019-11-02] MEDS ORDERED: Ibuprofen 800 MG Tab PO ONE (16:01)
[2019-11-02 16:16] VITALS: BP 132/69
== END 2019-11-02 16:16 | disposition home or self-care (01) ==
LOC: MW.ED 14:20
DX: J11.1 Influenza due to unidentified influenza virus with other respiratory manifestations (principal); Z88.2 Allergy status to sulfonamides; Z87.891 Personal history of nicotine dependence
CPT/HCPCS: 36415; 71046; 80053; 85025; 96360; 99283; A9270; J7030

== ENCOUNTER 2021-05-14 09:27 | Emergency (ER) | payer MEDICAID ==
--- NOTE | 2021-05-14 09:57 | EDM.PDOC ---
ED HPI GENERAL MEDICAL PROBLEM - General Chief Complaint: ENT Problem Stated Complaint: POSS L EAR INFECTION Time Seen by Provider: 05/14/21 09:30 - History of Present Illness INITIAL COMMENTS - FREE TEXT/NARRATIVE: History of present illness: [] The patient has about 5 days of pain in his teeth on the left and left ear as well as in the face around the area. He has had otitis media with perforated TM and drainage in the past. He is not diabetic and does not smoke. Review of systems: As per history of present illness and below otherwise all systems reviewed and negative. Past medical history: As per history of present illness and as reviewed below otherwise noncontributory. Surgical history: As per history of present illness and as reviewed below otherwise noncontributory. Social history: No reported history of drug or alcohol abuse. Family history: As per history of present illness and as reviewed below otherwise noncontributory. Physical exam: Constitutional - well developed, well-nourished and in no acute distress HEENT -tender left mastoid. Edema left ear canal epidermis. Broken tooth #32. Missing tooth #31. No trismus or psilocin. Normal voice. Normocephalic, no evidence of trauma - external nose and mouth normal - no mass in neck and no JVD - mucosae moist EYES - full EOM, PERRL, no icterus - no evidence of inflammation, injection, or drainage Respiratory - no respiratory distress, equal bilateral expansion, lungs clear to auscultation and no abnormal lung sounds Cardiovascular - Regular Rhythm with S1 and S2 appreciated and no murmur, gallop or rub. Musculoskeletal no gross deformity of long bones or joints - no tenderness, swelling or edema Neurologic - Alert and oriented times four - CN II-XII grossly intact - motor sensory and coordination symmetrically normal Psychiatric - appropriate mood and affect with normal thought content Hematologic - No petechiae or purpura - mucosa appropriate color and sclera not pale - normal nail bed color and refill Integument - no rash or evidence of trauma - normal turgor Diagnostics: [] Therapeutics: [] Impression: [] Plan: [] Definitive disposition and diagnosis as appropriate pending reevaluation and review of above. Left ear Pain Score (Numeric/FACES): 5 - Related Data Allergies Allergy/AdvReac Type Severity Reaction Status Date / Time Sulfa (Sulfonamide Allergy Rash Verified 05/14/21 09:45 Antibiotics) Home Meds: Home Meds ClonazePAM [KlonoPIN] 1 mg PO Q6HR 09/19/18 [History] Amoxicillin/Clavulanate K [Augmentin 875-125 MG] 1 tab PO Q12H #20 tab 05/14/21 [Rx] Hydrocort/Neomycin/Polymyxin B [Emektqql-Ftopmplqm-AA Otic Susp] 10 ml .XX TID #15 ml 05/14/21 [Rx] Past Medical History - Past Health History Medical/Surgical History: Denies Medical/Surgical History HEENT History: Reports: None Cardiovascular History: Reports: None Respiratory History: Reports: None Gastrointestinal History: Reports: None Genitourinary History: Reports: Renal Calculus Musculoskeletal History: Reports: None Neurological History: Reports: None Psychiatric History: Reports: Anxiety Endocrine/Metabolic History: Reports: None Hematologic History: Reports: None Immunologic History: Reports: None Oncologic (Cancer) History: Reports: None Dermatologic History: Reports: None - Infectious Disease History Infectious Disease History: Reports: Chicken Pox - Past Surgical History Head Surgeries/Procedures: Reports: None HEENT Surgical History: Reports: Tonsillectomy Cardiovascular Surgical History: Reports: None Respiratory Surgical History: Reports: None GI Surgical History: Reports: None Male Surgical History: Reports: None Endocrine Surgical History: Reports: None Neurological Surgical History: Reports: None Musculoskeletal Surgical History: Reports: None Oncologic Surgical History: Reports: None Dermatological Surgical History: Reports: None Social & Family History - Family History Family Medical History: No Pertinent Family History Cardiac: Reports: CT - Tobacco Use Tobacco Use Status *Q: Never Tobacco User Second Hand Smoke Exposure: No - Caffeine Use Caffeine Use: Reports: None - Recreational Drug Use Recreational Drug Use: No - Living Situation & Occupation Occupation: Employed ED ROS GENERAL - Review of Systems Review Of Systems: Comprehensive ROS is negative, except as noted in HPI. ED EXAM, GENERAL - Physical Exam Exam: See Below Free Text/Narrative:: My physical exam is in the HPI Course - Vital Signs Last Recorded V/S: Last Vital Signs Temp 36.3 C 05/14/21 09:44 Pulse 54 L 05/14/21 09:44 Resp 17 05/14/21 09:44 BP 125/69 05/14/21 09:44 Pulse Ox 98 05/14/21 09:44 Departure - Departure Time of Disposition: 09:53 Disposition: Home, Self-Care 01 Condition: Good Clinical Impression: Otitis media, Otitis externa - Discharge Information Prescriptions: Amoxicillin/Clavulanate K [Augmentin 875-125 MG] 1 tab PO Q12H #20 tab Hydrocort/Neomycin/Polymyxin B [Gevazymy-Dnweguped-OV Otic Susp] 10 ml .XX TID #15 ml Referrals: Rigo Morgan MD [Primary Care Provider] - Additional Instructions: If you feel like you are sick or you are not improving in 2 days you may return or see your primary doctor. [facility] - Primary Care [address] [place] [id number] [address] [address] The following information is given to patients seen in the emergency department who are being discharged to home. This information is to outline your options for follow-up care. We provide all patients seen in our emergency department with a follow-up referral. The need for follow-up, as well as the timing and circumstances, are variable depending upon the specifics of your emergency department visit. If you don't have a primary care physician on staff, we will provide you with a referral. We always advise you to contact your personal physician following an emergency department visit to inform them of the circumstance of the visit and for follow-up with them and/or the need for any referrals to a consulting specialist. The emergency department will also refer you to a specialist when appropriate. This referral assures that you have the opportunity for follow-up care with a specialist. All of these measure are taken in an effort to provide you with optimal care, which includes your follow-up. Under all circumstances we always encourage you to contact your private physician who remains a resource for coordinating your care. When calling for follow-up care, please make the office aware that this follow-up is from your recent emergency room visit. If for any reason you are refused follow-up, please contact the [facility] Emergency Department at and asked to speak to the emergency department charge nurse. Sepsis Event Note (ED) - Evaluation Sepsis Screening Result: No Definite Risk - Focused Exam Vital Signs: Vital Signs Temp Pulse Resp BP Pulse Ox 05/14/21 09:44 36.3 C 54 L 17 125/69 98
[2021-05-14 10:20] VITALS: BP 128/82; PULSE 82
== END 2021-05-14 10:00 | disposition home or self-care (01) ==
LOC: MW.ED 09:27
DX: H66.92 Otitis media, unspecified, left ear (principal); H60.92 Unspecified otitis externa, left ear; Z88.2 Allergy status to sulfonamides
CPT/HCPCS: 99282

== ENCOUNTER 2022-01-20 21:16 | Emergency (ER) | payer MEDICAID, OTHER ==
[2022-01-20] MEDS ORDERED: Ketorolac 30 MG/ML SDV IM ONE (23:28)
[2022-01-21] MEDS ORDERED: Acetaminophen/HYDROcodone 325-5 MG Tab PO ONE (00:23)
[2022-01-21 00:39] VITALS: BP 133/71; PULSE 82
== END 2022-01-21 00:39 | disposition home or self-care (01) ==
LOC: MW.ED 21:16
DX: S90.122A Contusion of left lesser toe(s) without damage to nail, initial encounter (principal); S90.121A Contusion of right lesser toe(s) without damage to nail, initial encounter; S09.90XA Unspecified injury of head, initial encounter; M94.0 Chondrocostal junction syndrome [Tietze]; Z88.2 Allergy status to sulfonamides; Y04.0XXA Assault by unarmed brawl or fight, initial encounter
CPT/HCPCS: 70450; 73630; 96372; 99284; A9270; J1885

== ENCOUNTER 2022-04-01 11:41 | Emergency (ER) | payer SELFPAY ==
[2022-04-01] MEDS ORDERED: HYDROmorphone 1 MG/ML Syringe IVPUSH ONE ×3 (11:53→14:38)
[2022-04-01] MEDS ORDERED: Sodium Chloride 0.9% 1,000 ML IV ONE ×2 (11:53→13:07)
[2022-04-01] MEDS ORDERED: Ketorolac 30 MG/ML SDV IVPUSH ONE (11:53)
[2022-04-01] MEDS ORDERED: Ondansetron 4 MG/2 ML SDV IVPUSH ONE (11:53)
[2022-04-01 12:45] LABS: BLOOD UREA NITROGEN,BUN 13 mg/dL (7.0-18.0); CARBON DIOXIDE,CO2 26.9 mmol/L (21.0-32.0); CHLORIDE,CL 103 mmol/L (98-107); GLUCOSE RANDOM 122 mg/dL (74-106); POTASSIUM,K 3.9 mmol/L (3.5-5.1); SODIUM,NA 139 mmol/L (136-148)
[2022-04-01] MEDS ORDERED: Iopamidol 755 MG/ML 500 ML Multipack Bottle IVPUSH STA (13:18)
[2022-04-01 15:05] VITALS: BP 148/75; PULSE 68
== END 2022-04-01 15:14 | disposition home or self-care (01) ==
LOC: MW.ED 11:41
DX: S32.028A Other fracture of second lumbar vertebra, initial encounter for closed fracture (principal); S32.038A Other fracture of third lumbar vertebra, initial encounter for closed fracture; Z88.2 Allergy status to sulfonamides; Y04.0XXA Assault by unarmed brawl or fight, initial encounter
CPT/HCPCS: 36415; 71260; 71260-26; 74177; 74177-26; 80053; 81001; 84484; 85025; 96374; 96375; 96376; 99284; 99284-25; J1170; J1885; J2405; J7030; Q9967

== ENCOUNTER 2022-04-05 08:04 | Emergency (ER) | payer SELFPAY ==
[2022-04-05] MEDS ORDERED: HYDROmorphone 2 MG/ML Syringe IM ONE (08:50)
[2022-04-05] MEDS ORDERED: Dexamethasone 10 MG/ML SDV IM ONE (08:51)
[2022-04-05] MEDS ORDERED: Ondansetron 4 MG Tab.DIS PO ONE (08:51)
[2022-04-05 09:20] VITALS: BP 126/88; PULSE 67
== END 2022-04-05 09:20 | disposition home or self-care (01) ==
LOC: MW.ED 08:04
DX: M54.42 Lumbago with sciatica, left side (principal); Z88.2 Allergy status to sulfonamides
CPT/HCPCS: 96372; 99283; A9270; J1100; J1170

== ENCOUNTER 2022-04-22 12:18 | Emergency (ER) | payer SELFPAY ==
[2022-04-22] MEDS ORDERED: HYDROmorphone 1 MG/ML Syringe IM ONE ×2 (12:32→13:50)
[2022-04-22] MEDS ORDERED: Ketorolac 30 MG/ML SDV IM ONE (12:32)
[2022-04-22] MEDS ORDERED: Orphenadrine 60 MG/2 ML Inj IM ONE (12:33)
[2022-04-22 12:35] VITALS: BP 139/89; PULSE 98
[2022-04-22] MEDS ORDERED: HYDROmorphone 1 MG/ML Syringe ONE (14:19)
== END 2022-04-22 14:23 | disposition home or self-care (01) ==
LOC: MW.ED 12:18
DX: S39.92XA Unspecified injury of lower back, initial encounter (principal); Z79.899 Other long term (current) drug therapy; Z88.2 Allergy status to sulfonamides; X58.XXXA Exposure to other specified factors, initial encounter
CPT/HCPCS: 72131; 96372; 99283; J1170; J1885; J2360

== ENCOUNTER 2022-08-01 14:33 | Emergency (ER) | payer SELFPAY ==
[2022-08-01 15:18] VITALS: BP 137/79; PULSE 56
[2022-08-01] MEDS ORDERED: Orphenadrine 60 MG/2 ML Inj IM ONE (16:07)
[2022-08-01] MEDS ORDERED: Ketorolac 30 MG/ML SDV IM ONE (16:07)
[2022-08-01] MEDS ORDERED: traMADol 50 MG Tab PO ONE (16:07)
== END 2022-08-01 17:04 | disposition home or self-care (01) ==
LOC: MW.ED 14:33
DX: M54.50 Low back pain, unspecified (principal); M54.6 Pain in thoracic spine; F17.210 Nicotine dependence, cigarettes, uncomplicated; Z88.2 Allergy status to sulfonamides; X50.9XXA Other and unspecified overexertion or strenuous movements or postures, initial encounter
CPT/HCPCS: 96372; 99283; A9270; J1885; J2360

== ENCOUNTER 2022-09-06 22:48 | Emergency (ER) | payer MEDICAID ==
[2022-09-06] MEDS ORDERED: Sodium Chloride 0.9% 2.5 ML Syringe FLUSH PRN (23:07)
[2022-09-06] MEDS ORDERED: Sodium Chloride 0.9% 1,000 ML IV ONE (23:07)
[2022-09-06] MEDS ORDERED: Ondansetron 4 MG/2 ML SDV IVPUSH ONE (23:07)
[2022-09-06] MEDS ORDERED: Sodium Chloride 0.9% 10 ML Syringe FLUSH PRN (23:07)
[2022-09-06] MEDS ORDERED: Ketorolac 30 MG/ML SDV IVPUSH ONE (23:08)
[2022-09-06 23:41] LABS: BLOOD UREA NITROGEN,BUN 12 mg/dL (7.0-18.0); CARBON DIOXIDE,CO2 23.2 mmol/L (21.0-32.0); CHLORIDE,CL 101 mmol/L (98-107); GLUCOSE RANDOM 117 mg/dL (74-106); LIPASE 142 U/L (73-393); POTASSIUM,K 3.6 mmol/L (3.5-5.1); SODIUM,NA 137 mmol/L (136-148)
[2022-09-06 23:43] LABS: ESTIMATED GFR 112 mL/min (>60)
[2022-09-06 23:51] LABS: CORONAVIRUS COVID-19 NAA NEGATIVE (NEGATIVE); INFLUENZA A NAA NEGATIVE (NEGATIVE); INFLUENZA B NAA NEGATIVE (NEGATIVE); RESPIRATORY SYNCYTIAL VIR NAA NEGATIVE (NEGATIVE)
[2022-09-07 00:42] VITALS: BP 139/97; PULSE 50
== END 2022-09-07 00:41 | disposition home or self-care (01) ==
LOC: MW.ED 22:48
DX: K29.70 Gastritis, unspecified, without bleeding (principal); Z88.2 Allergy status to sulfonamides; Z20.822 Contact with and (suspected) exposure to COVID-19
CPT/HCPCS: 0241U; 36415; 74176; 80053; 80305; 80307; 81001; 83690; 83735; 85025; 96361; 96374; 96375; 99284; J1885; J2405; J3490; J7030

== ENCOUNTER 2023-02-21 12:43 | Emergency (ER) | payer MEDICAID ==
[2023-02-21] MEDS ORDERED: Ondansetron 4 MG/2 ML SDV IVPUSH ONE (14:01)
[2023-02-21] MEDS ORDERED: Sodium Chloride 0.9% 1,000 ML IV ONE (14:01)
[2023-02-21] MEDS ORDERED: Famotidine 20 MG/2 ML SDV IVPUSH ONE (14:01)
[2023-02-21] MEDS ORDERED: Alum Hydro/Mag Hydro/Simeth XS 15 ML, Metoclopramide 5 MG, Lidocaine 2% 5 ML PO ONE ×3 (14:14)
[2023-02-21 15:05] LABS: CARBON DIOXIDE,CO2 29.6 mmol/L (21.0-32.0); POTASSIUM,K 4.2 mmol/L (3.5-5.1)
[2023-02-21 16:38] VITALS: BP 123/78; PULSE 56
== END 2023-02-21 16:38 | disposition home or self-care (01) ==
LOC: MW.ED 12:43
DX: K29.70 Gastritis, unspecified, without bleeding (principal); Z88.2 Allergy status to sulfonamides
CPT/HCPCS: 36415; 80053; 81001; 83690; 85025; 96361; 96374; 96375; 99284; A9270; J2405; J3490; J7030

== ENCOUNTER 2023-05-29 07:57 | Emergency (ER) | payer MEDICAID ==
[2023-05-29] MEDS ORDERED: fentaNYL 50 MCG/ML SDV IVPUSH ONE (09:16)
[2023-05-29] MEDS ORDERED: Sodium Chloride 0.9% 1,000 ML IV ONE (09:16)
[2023-05-29] MEDS ORDERED: Sodium Chloride 0.9% 10 ML Syringe FLUSH PRN (09:16)
[2023-05-29] MEDS ORDERED: Ondansetron 4 MG/2 ML SDV IVPUSH ONE (09:16)
[2023-05-29] MEDS ORDERED: Ketorolac 30 MG/ML SDV IVPUSH ONE (09:16)
[2023-05-29] MEDS ORDERED: Sodium Chloride 0.9% 2.5 ML Syringe FLUSH PRN (09:16)
[2023-05-29] MEDS ORDERED: Pantoprazole 40 MG in Sodium Chloride 0.9% 10 ML IVPUSH ONE (09:18)
[2023-05-29 09:50] LABS: BASOPHILS PERCENT AUTO 0.3 % (0.0-1.5); EOSINOPHILS ABSOLUTE AUTO 0.2 K/uL (0.0-0.7); EOSINOPHILS PERCENT AUTO 2.8 % (0.0-7.0); HEMATOCRIT 43.5 % (38.0-50.0); HEMOGLOBIN 14.8 g/dL (13.0-17.0); LYMPHOCYTES ABSOLUTE AUTO 0.9 K/uL (0.6-2.4); MEAN CORPUSCULAR HEMOGLOBIN 29.8 pg (27.0-32.0); MEAN CORPUSCULAR VOLUME 87.5 fL (80.0-98.0); MONOCYTES ABSOLUTE AUTO 0.9 K/uL (0.0-0.8); MONOCYTES PERCENT AUTO 14.1 % (0.0-15.0); NEUTROPHILS ABSOLUTE AUTO 4.1 K/uL (1.4-5.7); NEUTROPHILS PERCENT AUTO 67.8 % (48.0-80.0); NRBC ABSOLUTE 0 K/uL; PLATELET COUNT,PLT 228 K/uL (150-400); RED BLOOD CELL COUNT 4.97 M/uL (4.50-5.90); WHITE BLOOD CELL COUNT,WBC 6.02 K/uL (4.0-11.0)
[2023-05-29 10:09] LABS: INR 1.04 (0.86-1.11)
[2023-05-29 10:12] LABS: A/G RATIO 1.1 (0.9-1.6); ALBUMIN 3.9 g/dL (3.4-5.0); BILIRUBIN TOTAL 0.6 mg/dL (0.2-1.0); CALCIUM 8.8 mg/dL (8.5-10.1); CARBON DIOXIDE,CO2 30.4 mmol/L (21.0-32.0); EST CRCL DRUG DOSING (CG) 99.18 mL/min; POTASSIUM,K 4.6 mmol/L (3.5-5.1); PROTEIN TOTAL,TP 7.5 g/dL (6.4-8.2)
[2023-05-29] MEDS ORDERED: fentaNYL 100 MCG/2 ML SDV IVPUSH ONE (10:16)
[2023-05-29 10:33] LABS: APPEARANCE,URINE CLEAR; BILIRUBIN,URINE NEGATIVE (NEGATIVE); COLOR,URINE YELLOW; GLUCOSE,URINE NEGATIVE (NEGATIVE); KETONES,URINE NEGATIVE (NEGATIVE); LEUKOCYTE ESTERASE,URINE TRACE (NEGATIVE); NITRITE,URINE NEGATIVE (NEGATIVE); OCCULT BLOOD,URINE NEGATIVE (NEGATIVE); PH,URINE 6.5 (5.0-8.0); PROTEIN,URINE NEGATIVE (NEGATIVE); UROBILINOGEN,URINE 0.2 EU/dL (<2.0)
[2023-05-29] MEDS ORDERED: Sucralfate Suspension 1 GM/10 ML Cup PO ONE (10:38)
[2023-05-29 10:44] LABS: BACTERIA,URINE NOT SEEN (NEGATIVE); EPITHELIAL CELLS,URINE RARE (NONE-FEW); RBC,URINE 0-1 (0-2/HPF); WBC,URINE 0-1 (0-5/HPF)
[2023-05-29] MEDS ORDERED: Iopamidol 755 MG/ML 500 ML Multipack Bottle IVPUSH STA (11:38)
[2023-05-29 14:37] VITALS: BP 124/71; PULSE 69
== END 2023-05-29 14:36 | disposition home or self-care (01) ==
LOC: MW.ED 07:57
DX: K29.70 Gastritis, unspecified, without bleeding (principal); Z87.891 Personal history of nicotine dependence; Z88.2 Allergy status to sulfonamides
CPT/HCPCS: 36415; 74177; 76705; 80053; 81001; 83690; 85025; 85610; 96361; 96374; 96375; 96376; 99284; A9270; C9113; J1885; J2405; J3010; J3490; J7030; Q9967

== ENCOUNTER 2023-12-18 14:36 | Emergency (ER) | payer SELFPAY ==
[2023-12-18 15:12] LABS: APPEARANCE,URINE CLEAR; BILIRUBIN,URINE NEGATIVE (NEGATIVE); COLOR,URINE YELLOW; GLUCOSE,URINE NEGATIVE (NEGATIVE); KETONES,URINE NEGATIVE (NEGATIVE); LEUKOCYTE ESTERASE,URINE TRACE (NEGATIVE); NITRITE,URINE NEGATIVE (NEGATIVE); OCCULT BLOOD,URINE TRACE-INTACT (NEGATIVE); PH,URINE 6.5 (5.0-8.0); PROTEIN,URINE NEGATIVE (NEGATIVE); UROBILINOGEN,URINE 0.2 EU/dL (<2.0)
[2023-12-18 15:21] LABS: BACTERIA,URINE RARE (NEGATIVE); EPITHELIAL CELLS,URINE OCCASIONAL (NONE-FEW); RBC,URINE 0-2 (0-2/HPF)
[2023-12-18 15:28] LABS: BASOPHILS ABSOLUTE AUTO 0.04 K/uL (0.00-0.20); BASOPHILS PERCENT AUTO 0.5 % (0.0-1.0); EOSINOPHILS ABSOLUTE AUTO 0.05 K/uL (0.00-0.45); EOSINOPHILS PERCENT AUTO 0.7 % (0.0-6.0); HEMATOCRIT 44.4 % (42.0-52.0); HEMOGLOBIN 15.3 g/dL (14.0-18.0); IMMATURE GRAN ABSOLUTE AUTO 0.02 K/uL (0.00-0.05); IMMATURE GRAN PERCENT AUTO 0.3 % (0.0-0.4); LYMPHOCYTES ABSOLUTE AUTO 1.19 K/uL (1.00-4.80); LYMPHOCYTES PERCENT AUTO 16.3 % (24.0-44.0); MEAN CORPUSCULAR HEMOGLOBIN 29.8 pg (28.0-32.0); MEAN CORPUSCULAR HGB CONC 34.5 g/dL (32.0-36.0); MEAN CORPUSCULAR VOLUME 86.5 fL (83.0-99.0); MEAN PLATELET VOLUME 9.5 fL (9.4-12.4); MONOCYTES PERCENT AUTO 9.6 % (0.0-8.0); NEUTROPHILS PERCENT AUTO 72.6 % (41.0-71.0); PLATELET COUNT,PLT 336 K/uL (150-400); RED BLOOD CELL COUNT 5.13 M/uL (4.52-5.90)
[2023-12-18] MEDS: Sodium Chloride 0.9% 10 ML Syringe FLUSH PRN (15:34)
[2023-12-18] MEDS: Sodium Chloride 0.9% 2.5 ML Syringe FLUSH PRN (15:34)
[2023-12-18 15:54] LABS: A/G RATIO 1.2 (0.9-1.6); ALBUMIN 4.4 g/dL (3.4-5.0); BILIRUBIN TOTAL 0.5 mg/dL (0.2-1.0); CALCIUM 9.1 mg/dL (8.5-10.1); CARBON DIOXIDE,CO2 25.4 mmol/L (21.0-32.0); EST CRCL DRUG DOSING (CG) 102.4 mL/min; POTASSIUM,K 3.5 mmol/L (3.5-5.1); PROTEIN TOTAL,TP 8.1 g/dL (6.4-8.2)
[2023-12-18 17:09] VITALS: BP 131/90; PULSE 63
== END 2023-12-18 17:07 | disposition home or self-care (01) ==
LOC: MW.ED 14:36
DX: R10.11 Right upper quadrant pain (principal); Z88.2 Allergy status to sulfonamides
CPT/HCPCS: 36415; 80053; 81001; 83690; 85025; 99284; J3490

== ENCOUNTER 2023-12-29 16:00 | Emergency (ER) | payer SELFPAY ==
[2023-12-29 16:56] VITALS: BP 127/76; PULSE 80
== END 2023-12-29 17:00 | disposition home or self-care (01) ==
LOC: MW.ED 16:00
DX: H66.93 Otitis media, unspecified, bilateral (principal); J32.9 Chronic sinusitis, unspecified
CPT/HCPCS: 99283

== ENCOUNTER 2024-02-10 08:57 | Emergency (ER) | payer SELFPAY ==
[2024-02-10 09:18] LABS: BASOPHILS ABSOLUTE AUTO 0.03 K/uL (0.00-0.20); BASOPHILS PERCENT AUTO 0.7 % (0.0-1.0); EOSINOPHILS ABSOLUTE AUTO 0.06 K/uL (0.00-0.45); EOSINOPHILS PERCENT AUTO 1.3 % (0.0-6.0); HEMATOCRIT 43.2 % (42.0-52.0); HEMOGLOBIN 14.9 g/dL (14.0-18.0); IMMATURE GRAN ABSOLUTE AUTO 0.01 K/uL (0.00-0.05); IMMATURE GRAN PERCENT AUTO 0.2 % (0.0-0.4); LYMPHOCYTES ABSOLUTE AUTO 0.98 K/uL (1.00-4.80); LYMPHOCYTES PERCENT AUTO 21.5 % (24.0-44.0); MEAN CORPUSCULAR HEMOGLOBIN 29.8 pg (28.0-32.0); MEAN CORPUSCULAR HGB CONC 34.5 g/dL (32.0-36.0); MEAN CORPUSCULAR VOLUME 86.4 fL (83.0-99.0); MEAN PLATELET VOLUME 9.4 fL (9.4-12.4); MONOCYTES ABSOLUTE AUTO 0.57 K/uL (0.00-0.80); MONOCYTES PERCENT AUTO 12.5 % (0.0-8.0); NEUTROPHILS PERCENT AUTO 63.8 % (41.0-71.0); PLATELET COUNT,PLT 281 K/uL (150-400); WHITE BLOOD CELL COUNT,WBC 4.55 K/uL (3.9-11.3)
[2024-02-10] MEDS: Sodium Chloride 0.9% 2.5 ML Syringe FLUSH PRN (09:26)
[2024-02-10] MEDS: Sodium Chloride 0.9% 10 ML Syringe FLUSH PRN (09:26)
[2024-02-10 09:44] LABS: A/G RATIO 1.3 (0.9-1.6); ALANINE AMINOTRANSFERASE,ALT 24 IU/L (14-63); ALBUMIN 4.5 g/dL (3.4-5.0); ALKALINE PHOSPHATASE 74 U/L (46-116); ASPARTATE AMNIOTRANSFERASE,AST 15 IU/L (15-37); BILIRUBIN TOTAL 0.9 mg/dL (0.2-1.0); BLOOD UREA NITROGEN,BUN 14 mg/dL (7.0-18.0); CALCIUM 9.3 mg/dL (8.5-10.1); CARBON DIOXIDE,CO2 26.4 mmol/L (21.0-32.0); CHLORIDE,CL 104 mmol/L (98-107); EST CRCL DRUG DOSING (CG) 99.18 mL/min; GLUCOSE RANDOM 109 mg/dL (74-106); POTASSIUM,K 3.7 mmol/L (3.5-5.1); PROTEIN TOTAL,TP 7.9 g/dL (6.4-8.2); SODIUM,NA 142 mmol/L (136-148)
[2024-02-10 09:45] LABS: ESTIMATED GFR 98 mL/min (>60)
[2024-02-10 09:54] VITALS: BP 123/87; PULSE 66
== END 2024-02-10 09:59 | disposition home or self-care (01) ==
LOC: MW.ED 08:57
DX: R06.02 Shortness of breath (principal); Z88.2 Allergy status to sulfonamides; Z75.8 Other problems related to medical facilities and other health care
CPT/HCPCS: 36415; 71045; 80053; 84484; 85025; 93005; 99285; J3490; 93010; 99282

== ENCOUNTER 2024-02-13 05:34 | Emergency (ER) | payer SELFPAY ==
[2024-02-13 05:48] VITALS: BP 144/97
[2024-02-13 06:09] LABS: APPEARANCE,URINE CLEAR; BILIRUBIN,URINE NEGATIVE (NEGATIVE); COLOR,URINE YELLOW; GLUCOSE,URINE NEGATIVE (NEGATIVE); KETONES,URINE NEGATIVE (NEGATIVE); LEUKOCYTE ESTERASE,URINE NEGATIVE (NEGATIVE); NITRITE,URINE NEGATIVE (NEGATIVE); OCCULT BLOOD,URINE TRACE-INTACT (NEGATIVE); PROTEIN,URINE NEGATIVE (NEGATIVE); UROBILINOGEN,URINE 0.2 EU/dL (<2.0)
[2024-02-13 06:17] LABS: BACTERIA,URINE FEW (NEGATIVE); EPITHELIAL CELLS,URINE RARE (NONE-FEW); RBC,URINE 0-2 (0-2/HPF); WBC,URINE NONE SEEN (0-5/HPF)
[2024-02-13 06:30] VITALS: PULSE 74
== END 2024-02-13 06:29 | disposition home or self-care (01) ==
LOC: MW.ED 05:34
DX: N39.0 Urinary tract infection, site not specified (principal); Z88.2 Allergy status to sulfonamides; Z79.899 Other long term (current) drug therapy
CPT/HCPCS: 81001; 99283

== ENCOUNTER 2024-05-22 22:48 | Emergency (ER) | payer BC ==
[2024-05-22 23:43] LABS: CALCIUM 8.3 mg/dL (8.5-10.1); CARBON DIOXIDE,CO2 25.4 mmol/L (21.0-32.0); CREATININE 1.1 mg/dL (0.8-1.3); EST CRCL DRUG DOSING (CG) 92.17 mL/min; POTASSIUM,K 3.4 mmol/L (3.5-5.1)
[2024-05-23] MEDS: Iopamidol 755 MG/ML 500 ML Multipack Bottle IVPUSH ONE (00:21)
[2024-05-23 02:09] VITALS: BP 98/67; PULSE 63
== END 2024-05-23 02:09 | disposition home or self-care (01) ==
LOC: MW.ED 22:48
DX: R09.A2 Foreign body sensation, throat (principal); Z75.8 Other problems related to medical facilities and other health care; Z88.0 Allergy status to penicillin
CPT/HCPCS: 36415; 70491; 80048; 99284; Q9967

== ENCOUNTER 2025-08-02 01:39 | Emergency (ER) | payer SELFPAY ==
[2025-08-02] MEDS ORDERED: Sodium Chloride 0.9% 10 ML Syringe FLUSH PRN (01:42)
[2025-08-02] MEDS ORDERED: Sodium Chloride 0.9% 2.5 ML Syringe FLUSH PRN (01:42)
[2025-08-02 02:16] LABS: BASOPHILS ABSOLUTE AUTO 0.07 K/uL (0.00-0.20); BASOPHILS PERCENT AUTO 0.9 % (0.0-1.0); EOSINOPHILS ABSOLUTE AUTO 0.20 K/uL (0.00-0.45); EOSINOPHILS PERCENT AUTO 2.5 % (0.0-6.0); IMMATURE GRAN ABSOLUTE AUTO 0.02 K/uL (0.00-0.05); IMMATURE GRAN PERCENT AUTO 0.3 % (0.0-0.4); LYMPHOCYTES ABSOLUTE AUTO 1.69 K/uL (1.00-4.80); LYMPHOCYTES PERCENT AUTO 21.3 % (24.0-44.0); MEAN PLATELET VOLUME 9.5 fL (9.4-12.4); MONOCYTES ABSOLUTE AUTO 1.12 K/uL (0.00-0.80); MONOCYTES PERCENT AUTO 14.1 % (0.0-8.0); NEUTROPHILS ABSOLUTE AUTO 4.82 K/uL (1.80-7.70); NEUTROPHILS PERCENT AUTO 60.9 % (41.0-71.0); NRBC ABSOLUTE 0.00 K/uL (0.00-0.02); NRBC PERCENT 0.0 /100WBC (0.0-0.2); PLATELET COUNT,PLT 312 K/uL (150-400); RED BLOOD CELL COUNT 4.54 M/uL (4.52-5.90); WHITE BLOOD CELL COUNT,WBC 7.92 K/uL (3.9-11.3)
[2025-08-02 02:34] LABS: INR 1.03 (0.86-1.11)
[2025-08-02] MEDS: Ketorolac 30 MG/ML SDV IVPUSH ONE (02:40)
[2025-08-02] MEDS: Dexamethasone Sod Phos Preservative Free 10 MG/ML Vial IVPUSH ONE (02:40)
[2025-08-02 02:44] LABS: A/G RATIO 1.1 (0.9-1.6); ALANINE AMINOTRANSFERASE,ALT 20 IU/L (14-63); ASPARTATE AMNIOTRANSFERASE,AST 19 IU/L (15-37); BILIRUBIN TOTAL 0.4 mg/dL (0.2-1.0); BLOOD UREA NITROGEN,BUN 15 mg/dL (7.0-18.0); CARBON DIOXIDE,CO2 24.5 mmol/L (21.0-32.0); CHLORIDE,CL 105 mmol/L (98-107); CREATININE 0.8 mg/dL (0.8-1.3); GLUCOSE RANDOM 121 mg/dL (74-106); POTASSIUM,K 3.5 mmol/L (3.5-5.1); PRO B-TYPE NATRIUR PEPT,BNPPRO 10 pg/mL (0-125); PROTEIN TOTAL,TP 7.3 g/dL (6.4-8.2); SODIUM,NA 141 mmol/L (136-148)
[2025-08-02 02:45] LABS: ESTIMATED GFR 114 mL/min (>60)
[2025-08-02 03:07] VITALS: BP 125/75; PULSE 70
== END 2025-08-02 03:06 | disposition home or self-care (01) ==
LOC: MW.ED 01:39
DX: J02.9 Acute pharyngitis, unspecified (principal); R09.1 Pleurisy; R07.81 Pleurodynia; R42 Dizziness and giddiness; Z88.2 Allergy status to sulfonamides
CPT/HCPCS: 36415; 71045; 80053; 83735; 83880; 84484; 85025; 85610; 87428; 87651; 93005; 96374; 99284; J1100; 93010

== ENCOUNTER 2025-09-27 15:49 | Emergency (ER) | payer SELFPAY ==
[2025-09-27 19:05] VITALS: BP 119/85; PULSE 77
== END 2025-09-27 19:04 | disposition home or self-care (01) ==
LOC: MW.ED 15:49
DX: S69.92XA Unspecified injury of left wrist, hand and finger(s), initial encounter (principal); Z88.2 Allergy status to sulfonamides; Z79.899 Other long term (current) drug therapy; X50.1XXA Overexertion from prolonged static or awkward postures, initial encounter; Y93.89 Activity, other specified
CPT/HCPCS: 29125; 73100; 73130; 99283; A9270